=== PATIENT | male | born 1960 ===

== ENCOUNTER 2022-01-18 16:30 | Inpatient (IN) | payer OTHER, SELFPAY ==
--- NOTE | 2022-01-18 17:49 | HO.PSYADMNOT ---
Documented by User: Eva Fournire NP 01/19/22 04:11 HPI Date of Service: 01/18/22 Chief Complaint: Paranoia Sources of Information: patient interviewed, chart reviewed and crisis/core team assessment reviewed HPI Subjective Notes: Tsang Warning and Conditional Voluntary Healthcare Proxy: No Guardianship: No Medical Problems Affecting Mental Status: No Narrative: Tomas is a 61 y.o. Male who carries a dx of schizoaffective disorder, depressive type. He presented to the [facility] ED on 01/17/22 via ambulance called by [place] [employer] due to pt writing a note to police stating that he is in a high level [employer] project. Once at the ED, Tomas complained of headaches, memory loss, hearing loss, and word retrieval issues, which he attributes to high level radio frequency satellites. Per crisis eval, pt?s step-father (Samm) reported that pt's mother suffered an SC over the weekend and is currently in the hospital. He says pt is ?completely delusional and I wish we could help him but we can't.? Says he is not welcome back at the house, where he was staying. 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 It is known that I have been part of a government project that involved Rad satellites. This project was supposed to end 3 months ago. It didn?t. I hope for it?s closure everyday. My family is not involved with my life although I tried to reach out for their help. I may require a legal guardian appointed to help me get back on my feet due to insolvency, debt, no car, no housing, and no food. My mother refuses to behave as my legal guardian and I am unable to trust her with my care and making life decisions on my behalf. My condition is very bad in terms of hearing, sometimes coherency, head pain (formerly severe head pain), dizziness, (important) inability to have a person to person conversation. Thank you- Tim Swift. I evaluated the pt this evening and upon interview he reports the [employer] Sat[employer] project is still going on and that satellite frequency is ?affecting my mind.? Says this has been going on 8 years and that he was ?selected? for the project. Has multiple somatic delusions, says his physical sx are ?getting really bad? over the past month or so. Says ?I dont sleep that good,? sleeps 3 hours at night, feels tired, ?drained? and ?worn down.? Denies having nightmares or flashbacks. Says ?I have anxiety,? feels nervous. Has irritability but says he is not aggressive. Denies A/VH. Says he last ?felt normal? 8 years ago. Says a ?normal? version of him is ?optimistic.? 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 However says he has been unable to work x 8 years because ?I cant think? and he often has to lay down due to ?severe head pain.? Denies applying for disability, his bio mom is his legal guardian. Pt reports he has been supporting himself by selling his house and living off his savings. Denies having friend/ family support. Denies having a PCP. Says he has been taking risperdal since November, as this was started at [facility], however he doesnt think it does anything. Denies side effects. Pt points to liam/ nevi on his skin and says this is a ?frequency burn.??Says his mood is depressed. Denies SI/SIB/HI upon inquiry. Past Psychiatric History: -Hx of multiple psych admissions. Last IPLOC 12/11/21 at [facility] for similar presentation (started on risperdal). Was at [facility] in 2018, and a facility in the [facility] in 2013. -Has legal guardian (bio mom) Medical Evaluation Reviewed: Hospitalist [facility] Medical History (Updated 01/19/22 @ 11:18 by CARRIE Prakash) Schizoaffective disorder, depressive type Surgical History (Updated 01/19/22 @ 11:07 by CARRIE Prakash) No pertinent past surgical history Social History: -Pt?s legal guardian is his mother, Eloina Graff -Had been staying with his and her , unclear if he is welcome back. 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 He has lived in numerous states including [place], [place], and [place], lived a ?nomadic lifestyle. Diagnostics Labs Results: 01/19/22 07:03 01/19/22 07:03 Meds/Allergies Meds Home Medications Acetaminophen (Acetaminophen 325 Mg Tablet) 650 mg PO Q6H PRN PRN Reason: Headache/Pain Mild Scale (1-3) Al Hydroxide/Mg Hydroxide (Magnesium Hydrox/Alum Hydrox 30 Ml Oral.Susp) 30 ml PO Q6H PRN PRN Reason: Heartburn/Nausea Hydroxyzine HCl (Hydroxyzine Hcl 25 Mg Tablet) 25 mg PO BEDTIME PRN PRN Reason: Anxiety Lorazepam (Lorazepam 0.5 Mg Tablet) 0.5 mg PO Q6H PRN PRN Reason: anxiety/restlessness Magnesium Hydroxide (Milk Of Magnesia 30 Ml Oral.Susp) 30 ml PO DAILY PRN PRN Reason: Constipation Risperidone (Risperidone 1 Mg Tablet) 1 mg PO BID LOLA Last Admin: 01/19/22 20:46 Dose: 1 mg Documented by: Trazodone HCl (Trazodone Hcl 50 Mg Tablet) 50 mg PO BEDTIME PRN PRN Reason: Insomnia Allergies Allergies Allergy/AdvReac Type Severity Reaction Status Date / Time No Known Allergies Allergy Verified 01/18/22 17:46 Mental Status Exam Mental Status Exam Narrative: A&O. Appears older than stated age, in hospital attire, laying down in bed, thin body habitus. Poor eye contact, inattentive (hard of hearing). No Tics or Tremors. No abnormal involuntary movements. Calm, guarded, difficult to engage, paranoid. Non-pressured speech, spontaneous with regular rate and rhythm, normal volume and prosody. No prolonged speech latency or dysarthria. Mood is ?anxious,? affect is congruent. Denies SI/SIB/HI upon inquiry. Denies A/VH. Endorses somatic and paranoid delusional thought content. Thoughts are disorganized. No known cognitive or memory impairment. Insight/ Judgment poor.. Assessment & Plan Assessment & Plan (1) Schizoaffective disorder, depressive type: Status: Acute Code(s): F25.1 - Schizoaffective disorder, depressive type Plan Tomas is a 61 y.o. Male who carries a dx of schizoaffective disorder, depressive type. He presented to the [facility] ED on 01/17/22 via ambulance called by [place] [employer] due to pt writing a note to police stating that he is in a high level [employer] project. Once at the ED, Tomas complained of headaches, memory loss, hearing loss, and word retrieval issues, which he attributes to high level radio frequency satellites. No substance or alcohol use concerns. Plan: Pt was started on risperdal at [facility], will obtain discharge. Will increase risperdal to 1 mg BID for psychotic sx. Q15 min safety checks, CV Monitor response to medications. Monitor for safety in the milieu. Discharge on stabilization. Patient seen. Chart reviewed. Discussed with team. Obtain collateral contact info?as needed Patient educated on: medication risk/benefits Reason for continued inpatient stay Substantial Risk for: inability to function, rapid decompensation and med/psych decompensation
[2022-01-18 18:16] VITALS: BMI 17.4
--- NOTE | 2022-01-18 19:07 | PC.ADMIT ---
Pt is a 61 year old male admitted on CV for delusion. Pt wrote a letter to the police stating he is in a high level [employer] project. While in the inpatient psych unit, Pt reports that he is hard of hearing and requested for a book to write his life story. In the notes pt states that he has been part of a [employer] project that involves [employer]. Pt continues to state that his family is not involved with his life. He continues to say, i tried to reach out for their help. Meanwhile Pt's mother is his guarding per medical records. Speech is soft and coherent. Denies SI/HI/AH plan or intent. Pt appears disheveled, labile. Thought process is illogical and disorganized. Admission orders obtained.
[2022-01-18 19:53] LABS: Appearance Urine CLEAR; Color Urine YELLOW; Glucose Urine UA NEG (NEG); Leukocyte Esterase Urine NEG (NEG); Nitrite Urine NEG (NEG); Specific Gravity - Urine >= 1.030 (1.005-1.025); Urine Blood NEG (NEG); Urine Ketones NEG (NEG); Urine Protein NEG (NEG-TRACE)
[2022-01-18] MEDS: risperiDONE 1 MG TABLET PO (20:58)
[2022-01-19 06:00] VITALS: BP 120/74; PULSE 73; RESP 15; TEMP 36.4; O2SAT 97
[2022-01-19 07:23] LABS: MANUAL DIFF FLAG NO
[2022-01-19 07:25] LABS: Basophils Percent Auto 0.3 % (0-2); Eosinophils Absolute Auto 0.1 X10*3/uL (0.0-0.4); Eosinophils Percent Auto 2.2 % (0-4); Hematocrit 38.9 % (42.0-52.0); Hemoglobin 12.6 g/dl (14.0-18.0); Imm Gran Abs Auto 0.02 X10*3/uL (0.00-0.03); Imm Gran Pct Auto 0.3 % (0.0-0.4); Lymphocytes Absolute Auto 1.6 X10*3/uL (1.2-4.9); Lymphocytes Percent Auto 24.6 % (20-40); Mean Corpuscular HGB Conc 32.4 g/dl (31.0-36.0); Mean Corpuscular Hemoglobin 31.5 pg (27.0-33.0); Mean Corpuscular Volume 97.3 fL (80.0-98.0); Mean Platelet Volume 10.5 fL (9.4-12.4); Monocytes Absolute Auto 0.6 X10*3/uL (0.1-1.2); Monocytes Percent Auto 9.4 % (2-11); Neutrophils Percent Auto 63.2 % (45-73); Platelet Count 240 X10*3/uL (160-400); Red Cell Distribution Width 13.2 % (11.0-16.0); White Blood Count 6.4 X10*3/uL (4.8-10.8)
[2022-01-19 08:12] LABS: Alanine Aminotransferase 18 U/L (0-40); Albumin Level 4.1 g/dL (3.5-5.0); Alkaline Phosphatase 52 U/L (39-117); Anion Gap 9 (12-20); Aspartate Amino Transferase 29 U/L (5-37); Bilirubin Total 0.9 mg/dL (0.0-1.0); Blood Urea Nitrogen 21 mg/dL (9-16); Calcium 9.8 mg/dL (8.4-10.2); Carbon Dioxide 30 mmol/L (22-29); Chloride 103 mmol/L (96-108); Cholesterol 204 mg/dL; Estimated Glomerular Filt Rate > 60; Glucose Fasting 102 mg/dL (60-99); HDL Cholesterol 46 mg/dL; LDL Cholesterol Calculated 148 mg/dl; Potassium 4.7 mmol/L (3.3-5.1); Sodium 137 mmol/L (135-145); Total Protein 7.5 g/dL (6.5-8.0); Triglycerides 53 mg/dL
[2022-01-19 08:14] LABS: TSH reflex Free T4 4.35 uIU/mL (0.32-4.0)
[2022-01-19] MEDS: risperiDONE 1 MG TABLET PO ×2 (08:59→20:46)
[2022-01-19 09:13] LABS: Free T4 (Free Thyroxine) 0.94 ng/dL (0.71-1.85)
[2022-01-19 09:46] LABS: Amphetamine Screen Urine Not Detected (Not Detect); Barbiturates, Urine Not Detected (Not Detect); Benzodiazepines Screen Urine Not Detected (Not Detect); Cannabinoid Screen Urine Not Detected (Not Detect); Cocaine Screen Urine Not Detected (Not Detect); Fentanyl, urine Not Detected (Not Detect); Opiate Screen Urine Not Detected (Not Detect); Phencyclidine Screen Urine Not Detected (Not Detect)
--- NOTE | 2022-01-19 11:02 | P.CNHOSGPS_ITS ---
History of Present Illness Data of Consult Service Date: 01/19/22 Requesting physician: Eva Fournier Primary Care Provider: Unknown Physician HPI Reason for consult: Routine Medical, H&P this is a 61-year-old male with history of schizoaffective disorder who presented to [facility]. Patient had reportedly written a note to [place] [employer] stating that he is involved in a high-level [employer] project. He was admitted to the hospital for further management of paranoia. T he hospitalists were asked to see him in consultation for routine medical exam as he was admitted from an outside facility. During my evaluation he was calm and cooperative and able answer all questions appropriately. He denies any baseline medical issues or any medical complaints at this time. Review of Systems Review of Systems: Yes all other systems are reviewed and are negative Constitutional: Constitutional: Denies chills Cardiovascular: Cardiovascular: Denies chest pain and Denies dyspnea Respiratory: Respiratory: Denies dyspnea Gastrointestinal: Gastrointestinal: Denies abdominal pain and Denies vomiting [facility] Medical History (Updated 01/19/22 @ 11:18 by CARRIE Prakash) Schizoaffective disorder, depressive type Pertinent family history: Patient denies family history of heart disease, cancer or stroke Surgical History (Updated 01/19/22 @ 11:07 by CARRIE Prakash) No pertinent past surgical history Social History (Updated 01/19/22 @ 11:07 by CARRIE Prakash) Household Members: None Housing: Other Do you presently have visiting nurse or other home services: No Alcohol intake: never Patient Tobacco Use Status: Never used Tobacco Use of substances other than those prescribed or required for medical reasons: No Currently Displaying Signs/Symptoms of Drug Intoxication Withdrawal: No Have you been hit, kicked, punched, or otherwise hurt by someone within the past year? If so, by whom?: No Do you feel safe in your current relationship?: No Is there a partner from a previous relationship who is making you feel unsafe now?: No Are you made to feel afraid or neglected: No Spiritual Healthcare Practices: N/A Restorationist Healthcare Practices: N/A Cultural Healthcare Practices: N/A Advance Directives: No Advance Directives Information Provided: Yes Advance Directives on File: No Do you have thoughts of harming others: None Do you have a plan to hurt others: No Plan Recently lost weight without trying: No How much weight loss: Not applicable Eating poorly because of decreased appetite: No Nutrition screen score: 0 Nutrition Risks: No Nutritional Risk Poor oral hygiene: No Meds Allergies Allergy/AdvReac Type Severity Reaction Status Date / Time No Known Allergies Allergy Verified 01/18/22 17:46 Active Medications: Current Medications Acetaminophen (Acetaminophen 325 Mg Tablet) 650 mg PO Q6H PRN PRN Reason: Headache/Pain Mild Scale (1-3) Al Hydroxide/Mg Hydroxide (Magnesium Hydrox/Alum Hydrox 30 Ml Oral.Susp) 30 ml PO Q6H PRN PRN Reason: Heartburn/Nausea Hydroxyzine HCl (Hydroxyzine Hcl 25 Mg Tablet) 25 mg PO BEDTIME PRN PRN Reason: Anxiety Lorazepam (Lorazepam 0.5 Mg Tablet) 0.5 mg PO Q6H PRN PRN Reason: anxiety/restlessness Magnesium Hydroxide (Milk Of Magnesia 30 Ml Oral.Susp) 30 ml PO DAILY PRN PRN Reason: Constipation Risperidone (Risperidone 1 Mg Tablet) 1 mg PO BID LOLA Last Admin: 01/19/22 08:59 Dose: 1 mg Documented by: Trazodone HCl (Trazodone Hcl 50 Mg Tablet) 50 mg PO BEDTIME PRN PRN Reason: Insomnia Home Medications Medication Instructions Recorded Confirmed Last Taken Type No Known Home Meds 01/19/22 01/19/22 Unknown History Results Labs CBC and Chem 7: 01/19/22 07:03 01/19/22 07:03 Labs: Laboratory Results - last 24 hr 01/18/22 01/19/22 01/19/22 19:30 07:03 07:03 MCV 97.3 MCH 31.5 MCHC 32.4 RDW 13.2 Plt Count 240 MPV 10.5 Immature Gran % (Auto) 0.3 Neut % (Auto) 63.2 Lymph % (Auto) 24.6 [place] % (Auto) 9.4 Eos % (Auto) 2.2 Baso % (Auto) 0.3 Lymph # (Auto) 1.6 [place] # (Auto) 0.6 Eos # (Auto) 0.1 Baso # (Auto) 0.0 Abs Immat Gran (auto) 0.02 Absolute Neuts (auto) 4.0 Absolute Nucleated RBC 0.000 Nucleated RBC % (auto) 0.0 Anion Gap 9 L Estim Creat Clear Calc 61.0 Estimated GFR > 60 Fasting Glucose 102 H Calcium 9.8 Total Bilirubin 0.9 AST 29 ALT 18 Alkaline Phosphatase 52 Total Protein 7.5 Albumin 4.1 Triglycerides 53 Cholesterol 204 LDL Cholesterol, Calc 148 HDL Cholesterol 46 TSH 4.35 H Free T4 0.94 Urine Color YELLOW Urine Appearance CLEAR Urine pH 6.0 Ur Specific [place] >= 1.030 H Urine Protein NEG Urine Glucose (UA) NEG Urine Ketones NEG Urine Blood NEG Urine Nitrite NEG Ur Leukocyte Esterase NEG Urine Opiates Screen Urine Fentanyl Screen Ur Barbiturates Screen Ur Phencyclidine Scrn Ur Amphetamines Screen U Benzodiazepines Scrn Urine Cocaine Screen U Marijuana (THC) Screen 01/19/22 09:16 MCV MCH MCHC RDW Plt Count MPV Immature Gran % (Auto) Neut % (Auto) Lymph % (Auto) [place] % (Auto) Eos % (Auto) Baso % (Auto) Lymph # (Auto) [place] # (Auto) Eos # (Auto) Baso # (Auto) Abs Immat Gran (auto) Absolute Neuts (auto) Absolute Nucleated RBC Nucleated RBC % (auto) Anion Gap Estim Creat Clear Calc Estimated GFR Fasting Glucose Calcium Total Bilirubin AST ALT Alkaline Phosphatase Total Protein Albumin Triglycerides Cholesterol LDL Cholesterol, Calc HDL Cholesterol TSH Free T4 Urine Color Urine Appearance Urine pH Ur Specific [place] Urine Protein Urine Glucose (UA) Urine Ketones Urine Blood Urine Nitrite Ur Leukocyte Esterase Urine Opiates Screen Not Detected Urine Fentanyl Screen Not Detected Ur Barbiturates Screen Not Detected Ur Phencyclidine Scrn Not Detected Ur Amphetamines Screen Not Detected U Benzodiazepines Scrn Not Detected Urine Cocaine Screen Not Detected U Marijuana (THC) Screen Not Detected Assessment and Plan (1) Schizoaffective disorder, depressive type: Status: Acute (2) Normocytic anemia: Status: Acute Plan This is a 61 year old male with history of schizoaffective disorder admitted to for management of paranoia. He has no specific medical complaints denies any chronic medical conditions. Vital signs stalbe. There do no appear to be any acute medical conditions at this time. Thank you for allowing us to participate in the care of this patient. Please feel free to call us if anything acute arises. Normocytic anemia, mild no baseline CBC for comparison b12, folate levels pending outpatient follow up Attending: dr. ansari Physical Exam Vital Signs: Last Vital Signs Temp 97.5 F 01/19/22 06:00 Pulse 73 04/23/22 06:00 Resp 15 01/19/22 06:00 BP 120/74 01/19/22 06:00 Pulse Ox 97 01/19/22 06:00 BMI result Body Mass Index 17.4 Const General: cooperative, comfortable, no acute distress, alert and awake Nutritional Appearance: thin Eyes Pupils: Equal, round and reactive pupils present EOM: EOMs intact bilaterally Resp Effort & Inspection: normal respiratory effort and able to speak in complete sentences Auscultation: clear to auscultation bilaterally Cardio Rate: regular rate Heart sounds: S1 normal heart sound present and S2 normal heart sound present GI Palpation (GI): Soft to palpation Neuro General: CN's II-XI intact bilaterally Cranial nerves: Yes Equal, round and reactive pupils present Extrem Other: moving all 4 extremities spontaneously; no pedal edema
[2022-01-19 18:00] VITALS: BP 124/72; PULSE 74; TEMP 36.3; O2SAT 97
[2022-01-20 06:00] VITALS: BP 107/69; PULSE 72; RESP 16; TEMP 37.1; O2SAT 98
[2022-01-20] MEDS: risperiDONE 1 MG TABLET PO ×2 (08:33→19:47)
[2022-01-20 16:20] VITALS: BP 131/72; PULSE 65; TEMP 36.7; O2SAT 95
--- NOTE | 2022-01-20 22:43 | HO.PSYCHPN ---
Subjective Subjective Date of Service: 01/19/22 Reason For Visit: Paranoia Subjective Notes: Conditional Voluntary Interim History: Patient calm cooperative able to give history that he had recently been a [facility] was treated with Risperdal. States he works for the [employer] cannot really explain what happened prior to admission. States he had been picked up by the police wandering the streets. Has not had any steady treatment. He is estranged from his family taking medication on the unit Mental Status Exam Mental Status Exam Narrative: Patient Appearance: Well Grooomed Patient Orientation: Person, Place and Situation Level of Consciousness: Awake Patient Behavior: Appropriate Mood Description: Flat and Apprehensive Affect Description: Withdrawn, Constricted and Apprehensive Memory Description: Intact Delusions: Being Controlled, Paranoid Ideation and Grandiose Thought Content: positive for Preoccupation, negative for Suicidal Ideation or negative for Homicidal Ideation Diagnostics Vital Signs (24Hr): Vital Signs - 24 hr 01/20/22 06:00 01/20/22 16:20 Temperature 98.7 F 98.1 F Pulse Rate 72 65 Respiratory Rate 16 Blood Pressure 107/69 131/72 Pulse Oximetry 98 95 BMI result Body Mass Index 17.4 Labs Results: 01/19/22 07:03 01/19/22 07:03 Labs: Laboratory Results - last 48 hr 01/19/22 01/19/22 01/19/22 07:03 07:03 09:16 WBC 6.4 RBC 4.00 L Hgb 12.6 L Hct 38.9 L MCV 97.3 MCH 31.5 MCHC 32.4 RDW 13.2 Plt Count 240 MPV 10.5 Immature Gran % (Auto) 0.3 Neut % (Auto) 63.2 Lymph % (Auto) 24.6 [place] % (Auto) 9.4 Eos % (Auto) 2.2 Baso % (Auto) 0.3 Lymph # (Auto) 1.6 [place] # (Auto) 0.6 Eos # (Auto) 0.1 Baso # (Auto) 0.0 Abs Immat Gran (auto) 0.02 Absolute Neuts (auto) 4.0 Absolute Nucleated RBC 0.000 Nucleated RBC % (auto) 0.0 Sodium 137 Potassium 4.7 Chloride 103 Carbon Dioxide 30 H Anion Gap 9 L BUN 21 H Creatinine 1.02 Estim Creat Clear Calc 61.0 Estimated GFR > 60 Fasting Glucose 102 H Calcium 9.8 Total Bilirubin 0.9 AST 29 ALT 18 Alkaline Phosphatase 52 Total Protein 7.5 Albumin 4.1 Triglycerides 53 Cholesterol 204 LDL Cholesterol, Calc 148 HDL Cholesterol 46 TSH 4.35 H Free T4 0.94 Urine Opiates Screen Not Detected Urine Fentanyl Screen Not Detected Ur Barbiturates Screen Not Detected Ur Phencyclidine Scrn Not Detected Ur Amphetamines Screen Not Detected U Benzodiazepines Scrn Not Detected Urine Cocaine Screen Not Detected U Marijuana (THC) Screen Not Detected Medications Medications Current Medications Acetaminophen (Acetaminophen 325 Mg Tablet) 650 mg PO Q6H PRN PRN Reason: Headache/Pain Mild Scale (1-3) Al Hydroxide/Mg Hydroxide (Magnesium Hydrox/Alum Hydrox 30 Ml Oral.Susp) 30 ml PO Q6H PRN PRN Reason: Heartburn/Nausea Hydroxyzine HCl (Hydroxyzine Hcl 25 Mg Tablet) 25 mg PO BEDTIME PRN PRN Reason: Anxiety Lorazepam (Lorazepam 0.5 Mg Tablet) 0.5 mg PO Q6H PRN PRN Reason: anxiety/restlessness Magnesium Hydroxide (Milk Of Magnesia 30 Ml Oral.Susp) 30 ml PO DAILY PRN PRN Reason: Constipation Risperidone (Risperidone 1 Mg Tablet) 1 mg PO BID LOLA Last Admin: 01/20/22 19:47 Dose: 1 mg Documented by: Trazodone HCl (Trazodone Hcl 50 Mg Tablet) 50 mg PO BEDTIME PRN PRN Reason: Insomnia Allergies Allergies Allergy/AdvReac Type Severity Reaction Status Date / Time No Known Allergies Allergy Verified 01/18/22 17:46 Assessment & Plan Assessment & Plan (1) Schizoaffective disorder, depressive type: Status: Acute Code(s): F25.1 - Schizoaffective disorder, depressive type Plan Tomas is a 61 y.o. Male who carries a dx of schizoaffective disorder, depressive type. He presented to the [facility] ED on 01/17/22 via ambulance called by [place] [employer] due to pt writing a note to police stating that he is in a high level [employer] project. Once at the ED, Tomas complained of headaches, memory loss, hearing loss, and word retrieval issues, which he attributes to high level radio frequency satellites. No substance or alcohol use concerns. Plan: Pt was started on risperdal at [facility], will obtain discharge. Will increase risperdal to 1 mg BID for psychotic sx. Q15 min safety checks, CV Monitor response to medications. Monitor for safety in the milieu. Discharge on stabilization. Patient seen. Chart reviewed. Discussed with team. Obtain collateral contact info?as needed 01/19/2022 Patient accepting Risperdal. Would do well with long-acting injectable. Unclear why patient has not had significant treatment over the past number of years. The collateral information from family he is asking we contact his stepfather. His 2 brothers states his no contact with. Patient does not have any children unclear how the patient has been living states he has over million dollars unclear if this is grandiose and delusional I spent minutes with the patient and/or on the patient floor today, greater than?50% of which was spent counseling/coordinating care. Reason for contiued inpatient stay Substantial Risk for: inability to function and rapid decompensation
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
[2022-01-21 06:00] VITALS: BP 111/75; PULSE 60; RESP 16; TEMP 36.9; O2SAT 99
[2022-01-21 07:52] LABS: Folate 14.1 ng/mL (> or = 4.0); Vitamin B12 502 pg/mL (200-900)
[2022-01-21] MEDS: risperiDONE 1 MG TABLET PO (08:36)
[2022-01-21 16:30] VITALS: BP 128/65; PULSE 66; TEMP 37.1; O2SAT 96
--- NOTE | 2022-01-21 17:22 | HO.PSYCHPN ---
Subjective Subjective Date of Service: 01/21/22 Reason For Visit: Paranoia Interim History: Patient seen and discussed with team. Patient evaluated today and upon interview he reports he slept well last night, the day before he thinks he only slept a half hour. Says omero is not doing anything. No side effects. Says his head pain isnt too bad, but he is still getting dizzy and having a hard time forming thoughts. Says he is eating well. His mood is a little anxious about the family situation. Says he is a little bit down but that his depression is only a 1/10 (10 is the worst). In the milieu, patient is safe but isolative in behavior. Denies SI/SIB/HI upon inquiry. Denies irritability or assaultive ideation. Says he feels safe. Medication Compliance: Yes Side effects from medications: No Attending Groups: No Review of Systems Acute medical concerns: No Medical Review of Systems: unchanged Mental Status Exam Mental Status Exam Narrative: A&O. Appears older than stated age, laying down in bed, thin body habitus. Poor eye contact, inattentive (says he is hard of hearing). No Tics or Tremors. No abnormal involuntary movements. Calm, guarded, difficult to engage, paranoid. Non-pressured speech, spontaneous with regular rate and rhythm, normal volume and prosody. No prolonged speech latency or dysarthria. Mood is ?anxious,? affect is congruent. Denies SI/SIB/HI upon inquiry. Denies A/VH. Endorses somatic and paranoid delusional thought content. Thoughts are perseverative on delusions. No known cognitive or memory impairment. Insight/ Judgment poor. Diagnostics Vital Signs (24Hr): Vital Signs - 24 hr 01/21/22 06:00 01/21/22 16:30 Temperature 98.5 F 98.7 F Pulse Rate 60 66 Respiratory Rate 16 Blood Pressure 111/75 128/65 Pulse Oximetry 99 96 BMI result Body Mass Index 17.4 Labs Results: 01/19/22 07:03 01/19/22 07:03 Labs: Laboratory Results - last 48 hr 01/19/22 07:03 Vitamin B12 502 Folate 14.1 Medications Medications Current Medications Acetaminophen (Acetaminophen 325 Mg Tablet) 650 mg PO Q6H PRN PRN Reason: Headache/Pain Mild Scale (1-3) Al Hydroxide/Mg Hydroxide (Magnesium Hydrox/Alum Hydrox 30 Ml Oral.Susp) 30 ml PO Q6H PRN PRN Reason: Heartburn/Nausea Hydroxyzine HCl (Hydroxyzine Hcl 25 Mg Tablet) 25 mg PO BEDTIME PRN PRN Reason: Anxiety Lorazepam (Lorazepam 0.5 Mg Tablet) 0.5 mg PO Q6H PRN PRN Reason: anxiety/restlessness Magnesium Hydroxide (Milk Of Magnesia 30 Ml Oral.Susp) 30 ml PO DAILY PRN PRN Reason: Constipation Risperidone (Risperidone 1 Mg Tablet) 1 mg PO BID LOLA Last Admin: 01/21/22 08:36 Dose: 1 mg Documented by: Trazodone HCl (Trazodone Hcl 50 Mg Tablet) 50 mg PO BEDTIME PRN PRN Reason: Insomnia Allergies Allergies Allergy/AdvReac Type Severity Reaction Status Date / Time No Known Allergies Allergy Verified 01/18/22 17:46 Assessment & Plan Assessment & Plan (1) Schizoaffective disorder, depressive type: Status: Acute Code(s): F25.1 - Schizoaffective disorder, depressive type Plan Tomas is a 61 y.o. Male who carries a dx of schizoaffective disorder, depressive type. He presented to the [facility] ED on 01/17/22 via ambulance called by [place] [employer] due to pt writing a note to police stating that he is in a high level [employer] project. Once at the ED, Tomas complained of headaches, memory loss, hearing loss, and word retrieval issues, which he attributes to high level radio frequency satellites. No substance or alcohol use concerns. Plan: Pt was started on risperdal at [facility], will obtain discharge. Will increase risperdal to 1 mg BID for psychotic sx. Q15 min safety checks, CV Monitor response to medications. Monitor for safety in the milieu. Discharge on stabilization. Patient seen. Chart reviewed. Discussed with team. Obtain collateral contact info?as needed 01/19/2022 Patient accepting Risperdal. Would do well with long-acting injectable. Unclear why patient has not had significant treatment over the past number of years. The collateral information from family he is asking we contact his stepfather. His 2 brothers states his no contact with. Patient does not have any children unclear how the patient has been living states he has over million dollars unclear if this is grandiose and delusional 01/20/2022 We would strongly recommend long-acting injectable. Contact family for additional information support unclear what other resources may be available 01/21/22: Increase risperdal to 2 mg BID, as pt has not had response to medication (risperdal started at [facility]) and appears psychotic, unable to care for self. Obtain [facility] discharge paperwork. I spent minutes with the patient and/or on the patient floor today, greater than?50% of which was spent counseling/coordinating care. Patient educated on: medication risk/benefits Reason for contiued inpatient stay Substantial Risk for: inability to function, rapid decompensation and med/psych decompensation
[2022-01-21] MEDS: risperiDONE 2 MG TABLET PO (20:53)
[2022-01-22 06:00] VITALS: BP 121/68; PULSE 68; RESP 18; TEMP 36.8; O2SAT 98
[2022-01-22] MEDS: risperiDONE 2 MG TABLET PO ×2 (08:08→20:10)
--- NOTE | 2022-01-22 10:40 | HO.PSYCHPN ---
Subjective Subjective Date of Service: 01/22/22 Reason For Visit: Paranoia Interim History: pt remains w/ delusional thoughts. 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 Supervisor P[employer] D[employer] highligthed some things in admission note and pt agreed it was accurate. Patient c/o severe headache which he believes are caused by electronics in his head; does not want medication for it saying motrin won't overcome the electronics. Pt says had MRI at [facility] few weeks ago and they found nothing. Mental Status Exam Mental Status Exam Narrative: A&O. Appears older than stated age, laying down in bed, thin body habitus. Good eye contact; attentive (says he is hard of hearing). No Tics or Tremors. No abnormal involuntary movements. Calm but a little guarded, difficult to engage, paranoid. Non-pressured speech, spontaneous with regular rate and rhythm, normal volume and prosody. No prolonged speech latency or dysarthria. Mood is ?anxious,? affect is congruent. Denies SI/SIB/HI upon inquiry. Denies A/VH. Endorses somatic and paranoid delusional thought content. Thoughts are perseverative on delusions. No known cognitive or memory impairment. Insight/ Judgment poor. Diagnostics Vital Signs (24Hr): Vital Signs - 24 hr 01/21/22 16:30 01/22/22 06:00 Temperature 98.7 F 98.3 F Pulse Rate 66 68 Respiratory Rate 18 Blood Pressure 128/65 121/68 Pulse Oximetry 96 98 BMI result Body Mass Index 17.4 Labs Results: 01/19/22 07:03 01/19/22 07:03 Labs: Laboratory Results - last 48 hr 01/19/22 07:03 Vitamin B12 502 Folate 14.1 Medications Medications Current Medications Acetaminophen (Acetaminophen 325 Mg Tablet) 650 mg PO Q6H PRN PRN Reason: Headache/Pain Mild Scale (1-3) Al Hydroxide/Mg Hydroxide (Magnesium Hydrox/Alum Hydrox 30 Ml Oral.Susp) 30 ml PO Q6H PRN PRN Reason: Heartburn/Nausea Hydroxyzine HCl (Hydroxyzine Hcl 25 Mg Tablet) 25 mg PO BEDTIME PRN PRN Reason: Anxiety Lorazepam (Lorazepam 0.5 Mg Tablet) 0.5 mg PO Q6H PRN PRN Reason: anxiety/restlessness Magnesium Hydroxide (Milk Of Magnesia 30 Ml Oral.Susp) 30 ml PO DAILY PRN PRN Reason: Constipation Risperidone (Risperidone 2 Mg Tablet) 2 mg PO BID LOLA Last Admin: 01/22/22 08:08 Dose: 2 mg Documented by: Trazodone HCl (Trazodone Hcl 50 Mg Tablet) 50 mg PO BEDTIME PRN PRN Reason: Insomnia Allergies Allergies Allergy/AdvReac Type Severity Reaction Status Date / Time No Known Allergies Allergy Verified 01/18/22 17:46 Assessment & Plan Assessment & Plan (1) Schizoaffective disorder, depressive type: Status: Acute Code(s): F25.1 - Schizoaffective disorder, depressive type Plan Tomas is a 61 y.o. Male who carries a dx of schizoaffective disorder, depressive type. He presented to the [facility] ED on 01/17/22 via ambulance called by [place] [employer] due to pt writing a note to police stating that he is in a high level [employer] project. Once at the ED, Tomas complained of headaches, memory loss, hearing loss, and word retrieval issues, which he attributes to high level radio frequency satellites. No substance or alcohol use concerns. 01/19/2022 Patient accepting Risperdal. Would do well with long-acting injectable. Unclear why patient has not had significant treatment over the past number of years. The collateral information from family he is asking we contact his stepfather. His 2 brothers states his no contact with. Patient does not have any children unclear how the patient has been living states he has over million dollars unclear if this is grandiose and delusional 01/20/2022 We would strongly recommend long-acting injectable. Contact family for additional information support unclear what other resources may be available 01/21/22: Increase risperdal to 2 mg BID, as pt has not had response to medication (risperdal started at [facility]) and appears psychotic, unable to care for self. Obtain [facility] discharge paperwork. Formulation: delusional disorder with hx of depression; no insight Plan: Q15 min safety checks, CV -increased risperdal to 2 mg BID for psychotic sx (on 01/21); risperdal recently started [facility]; will obtain discharge. -obtain MRI results from [facility] Monitor response to medications. Monitor for safety in the milieu. Discharge on stabilization. Patient seen. Chart reviewed. Discussed with team. Obtain collateral contact info?as needed I spent minutes with the patient and/or on the patient floor today, greater than?50% of which was spent counseling/coordinating care. Patient educated on: diagnosis Informed Consent: does not understand Reason for contiued inpatient stay Substantial Risk for: inability to function
[2022-01-22 18:00] VITALS: BP 108/70; PULSE 76; TEMP 36.8; O2SAT 96
[2022-01-23 06:09] VITALS: BP 117/67; PULSE 75; RESP 17; TEMP 36.3; O2SAT 98
[2022-01-23] MEDS: risperiDONE 2 MG TABLET PO ×2 (08:47→20:33)
--- NOTE | 2022-01-23 10:42 | P.PNPSI_ITS ---
Subjective Subjective Date of Service: 01/23/22 Reason For Visit: Paranoia Interim History: Patient reports that his headache Is a little better today and that he slept well last night. However, he says that his minds still feels foggy.. Patient says shared that for the past 8 years he has been part of a [employer] project that is highly classified and that this travel writer does not have clearance to know the details. Patient shows some dry patches of skin on his face and says that these are where the frequency gets attached to his skin. Patient shares that he has to Lie horizontally most of the day since at this position the lateral components in his brain are at their lowest amplitude. Patient shared that he has numerous discussions throughout the day with the [employer] system and with the [employer] computer. He says that he can hear them talking to him via the medical transcription supervisor implanted and that he gets advice from them, again not able to tell travel writer the details. Patient said that he is hopeful that this project will be ending soon and that he will give this travel writer a written note when that occurs. Patient denies any SI or HI. Patient denies any medication side effect Him Clerk did some reality testing and patient is adamant that this is completely real that his mind is not playing any tricks on him Mental Status Exam Mental Status Exam Narrative: Pt is alert and oriented; behavior is cooperative, friendly and calm; patient is not in distress; dressed in hospital attire with unkempt hair and marginal hygiene; mood is described as ok and affect a little blunted; eye contact appropriate; Speech is normal rate, volume and prosody and not pressured; no psychomotor agitation/retardation present; thought process is goal directed; Thought content is on delusional interactions with DOD; special, classified project; otherwise pertinent to relevant topics; denies any SI/HI. REports AH. Patients insight and judgment are impaired Diagnostics Vital Signs (24Hr): Vital Signs - 24 hr 01/22/22 18:00 01/23/22 06:09 Temperature 98.3 F 97.3 F Pulse Rate 76 75 Respiratory Rate 17 Blood Pressure 108/70 117/67 Pulse Oximetry 96 98 BMI result Body Mass Index 17.4 Labs Results: 01/19/22 07:03 01/19/22 07:03 Medications Medications Current Medications Acetaminophen (Acetaminophen 325 Mg Tablet) 650 mg PO Q6H PRN PRN Reason: Headache/Pain Mild Scale (1-3) Al Hydroxide/Mg Hydroxide (Magnesium Hydrox/Alum Hydrox 30 Ml Oral.Susp) 30 ml PO Q6H PRN PRN Reason: Heartburn/Nausea Hydroxyzine HCl (Hydroxyzine Hcl 25 Mg Tablet) 25 mg PO BEDTIME PRN PRN Reason: Anxiety Lorazepam (Lorazepam 0.5 Mg Tablet) 0.5 mg PO Q6H PRN PRN Reason: anxiety/restlessness Magnesium Hydroxide (Milk Of Magnesia 30 Ml Oral.Susp) 30 ml PO DAILY PRN PRN Reason: Constipation Risperidone (Risperidone 2 Mg Tablet) 2 mg PO BID LOLA Last Admin: 01/23/22 08:47 Dose: 2 mg Documented by: Trazodone HCl (Trazodone Hcl 50 Mg Tablet) 50 mg PO BEDTIME PRN PRN Reason: Insomnia Allergies Allergies Allergy/AdvReac Type Severity Reaction Status Date / Time No Known Allergies Allergy Verified 01/18/22 17:46 Assessment & Plan Assessment & Plan (1) Schizoaffective disorder, depressive type: Status: Acute Code(s): F25.1 - Schizoaffective disorder, depressive type Plan Tomas is a 61 y.o. Male who carries a dx of schizoaffective disorder, depressive type. He presented to the [facility] [place] on 01/17/22 via ambulance called by [place] [employer] due to pt writing a note to police stating that he is in a high level [employer] project. Once at the ED, Tomas complained of headaches, memory loss, hearing loss, and word retrieval issues, which he attributes to high level radio frequency satellites. No substance or alcohol use concerns. HOSPITAL COURSE: 01/19/2022 Patient accepting Risperdal. Would do well with long-acting injectable. Unclear why patient has not had significant treatment over the past number of years. The collateral information from family he is asking we contact his stepfather. His 2 brothers states his no contact with. Patient does not have any children unclear how the patient has been living states he has over million dollars unclear if this is grandiose and delusional 01/20/2022 We would strongly recommend long-acting injectable. Contact family for additional information support unclear what other resources may be available 01/21/22: Increase risperdal to 2 mg BID, as pt has not had response to medication (risperdal started at [facility]) and appears psychotic, unable to care for self. Obtain [facility] discharge paperwork. 01/23 Remains delusional and without any insight. However patient said that headache pain is less today which will hopefully Indicates that Risperdal is having some positive affect. Will leave the current dose for now to see If further improvements can be made Formulation: delusional disorder with hx of depression; no insight Plan: Q15 min safety checks, CV -increased risperdal to 2 mg BID for psychotic sx (on 01/21); risperdal recently started [facility]; will obtain discharge. -obtain MRI results from [facility]: Impression not available in documentation faxed over, however in progress note attending referenced MRI of the brain from 01/11/2022 which she reported as ...unremarkable. Will try to get official impression Monitor response to medications. Monitor for safety in the milieu. Discharge on stabilization. Patient seen. Chart reviewed. Discussed with team. Obtain collateral contact info?as needed I spent minutes with the patient and/or on the patient floor today, greater than?50% of which was spent counseling/coordinating care. Patient educated on: diagnosis Informed Consent: does not understand Reason for contiued inpatient stay Substantial Risk for: inability to function
[2022-01-23 18:30] VITALS: BP 115/66; PULSE 80; TEMP 37; O2SAT 96
[2022-01-23] MEDS: traZODone HCL 50 MG TABLET PO (20:33)
--- NOTE | 2022-01-23 22:56 | PC.NURSE ---
Patient continues to isolate to his room. He will make only vague reference to the project but stated the doctor knows all about it.
[2022-01-24 06:00] VITALS: BP 107/72; PULSE 62; RESP 16; TEMP 36.1; O2SAT 97
[2022-01-24] MEDS: risperiDONE 2 MG TABLET PO ×2 (09:32→21:41)
[2022-01-24 16:55] VITALS: BP 130/66; PULSE 74; TEMP 36.8
--- NOTE | 2022-01-24 17:29 | P.PNPSI_ITS ---
Subjective Subjective Date of Service: 01/24/22 Reason For Visit: Paranoia Interim History: Patient again reports that he slept well and that headache is much less problematic today. Patient reiterates that he needs to lie horizontally most of the day as this lowers the amplitude of the electronics in his brain. [employer] asked about his time in [facility]. 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 He says that other than a short trip when he 1st got there, he spent the entire 5 years almost exclusively in his hotel room, never leaving and just participating on this D.O.D project. He says the [place] government deported him for over staying his visa. Patient denies any medication side effects and agrees to further titration. He said he has been on medications in the past but does not remember any of them. Mental Status Exam Mental Status Exam Narrative: Pt is alert and oriented; behavior is cooperative, friendly and calm; patient is not in distress; dressed in hospital attire with unkempt hair and marginal hygiene;? mood is described as good and affect a little blunted; eye contact appropriate; Speech is normal rate, volume and prosody and not pressured; no psychomotor agitation/retardation present; thought process is goal directed; Thought content is on delusional interactions with DOD; special, classified project; otherwise pertinent to relevant topics; denies any SI/HI. Auditory hallucinations present.? Patients insight and judgment are impaired Diagnostics Vital Signs (24Hr): Vital Signs - 24 hr 01/23/22 18:30 01/24/22 06:00 01/24/22 16:55 Temperature 98.6 F 96.9 F 98.2 F Pulse Rate 80 62 74 Respiratory Rate 16 Blood Pressure 115/66 107/72 130/66 Pulse Oximetry 96 97 BMI result Body Mass Index 17.4 Labs Results: 01/19/22 07:03 01/19/22 07:03 Medications Medications Current Medications Acetaminophen (Acetaminophen 325 Mg Tablet) 650 mg PO Q6H PRN PRN Reason: Headache/Pain Mild Scale (1-3) Al Hydroxide/Mg Hydroxide (Magnesium Hydrox/Alum Hydrox 30 Ml Oral.Susp) 30 ml PO Q6H PRN PRN Reason: Heartburn/Nausea Hydroxyzine HCl (Hydroxyzine Hcl 25 Mg Tablet) 25 mg PO BEDTIME PRN PRN Reason: Anxiety Lorazepam (Lorazepam 0.5 Mg Tablet) 0.5 mg PO Q6H PRN PRN Reason: anxiety/restlessness Magnesium Hydroxide (Milk Of Magnesia 30 Ml Oral.Susp) 30 ml PO DAILY PRN PRN Reason: Constipation Risperidone (Risperidone 2 Mg Tablet) 2 mg PO BID [facility] Last Admin: 01/24/22 09:32 Dose: 2 mg Documented by: Trazodone HCl (Trazodone Hcl 50 Mg Tablet) 50 mg PO BEDTIME [facility] Last Admin: 01/23/22 20:33 Dose: 50 mg Documented by: Allergies Allergies Allergy/AdvReac Type Severity Reaction Status Date / Time No Known Allergies Allergy Verified 01/18/22 17:46 Assessment & Plan Assessment & Plan (1) Schizoaffective disorder, depressive type: Status: Acute Code(s): F25.1 - Schizoaffective disorder, depressive type Plan Tomas is a 61 y.o. Male who carries a dx of schizoaffective disorder, depressive type. [place] [facility] [place] via ambulance called by [place] Police due to pt writing a note to police stating that he is in a high level [employer] project. Once at the ED, Tomas complained of headaches, memory loss, hearing loss, and word retrieval issues, which he attributes to high level radio frequency satellites. No substance or alcohol use concerns. HOSPITAL COURSE: 01/19/2022 Patient accepting Risperdal. Would do well with long-acting injectable. Unclear why patient has not had significant treatment over the past number of years. The collateral information from family he is asking we contact his stepfather. His 2 brothers states his no contact with. Patient does not have any children unclear how the patient has been living states he has over million dollars unclear if this is grandiose and delusional 01/20/2022 We would strongly recommend long-acting injectable. Contact family for additional information support unclear what other resources may be available 01/21/22: Increase risperdal to 2 mg BID, as pt has not had response to medication ([place] [facility] and appears psychotic, unable to care for self. Obt[place] [facility] [place] 01/23 Remains delusional and without any insight. However patient said that headache pain is less today which will hopefully Indicates that Risperdal is having some positive affect. Will leave the current dose for now to see If further improvements can be made Formulation: delusional disorder with hx of depression; no insight Plan: Q15 min safety checks, CV -risperdal to 2 mg BID for psychotic sx (on 01/21); initially started on APTU -obtain MRI results from [facility]: Impression not available in documentation faxed over, however in progress note attending referenced MRI of the brain from 01/11/2022 which she reported as ...unremarkable. Will try to get official impression Monitor response to medications. Monitor for safety in the milieu. Discharge on stabilization. Patient seen. Chart reviewed. Discussed with team. Obtain collateral contact info?as needed I spent minutes with the patient and/or on the patient floor today, greater than?50% of which was spent counseling/coordinating care. Patient educated on: medication risk/benefits Informed Consent: understands Reason for contiued inpatient stay Substantial Risk for: inability to function
[2022-01-24] MEDS: traZODone HCL 50 MG TABLET PO (21:40)
[2022-01-25 06:00] VITALS: BP 113/67; PULSE 81; RESP 16; TEMP 36; O2SAT 98
[2022-01-25] MEDS: risperiDONE 2 MG TABLET PO ×2 (09:08→19:45)
--- NOTE | 2022-01-25 17:17 | HO.PSYCHPN ---
Subjective Subjective Date of Service: 01/25/22 Reason For Visit: Paranoia Interim History: Patient pleasant. He says headaches remain a little less severe. Patient feels that his thoughts are little clear as well. Patient apologized for yelling at staff earlier, saying it was upsetting to be asked questions about his secret mission especially feeling he has to repeat himself. Associate Marketing Manager discussed medications and patient agrees to further titration. Patient reports he has no place to live and is homeless Mental Status Exam Mental Status Exam Narrative: Pt is alert and oriented; behavior is cooperative, friendly and calm; patient is not in distress; dressed in hospital attire with unkempt hair and marginal hygiene;? mood is described as good and affect a little blunted; eye contact appropriate; Speech is normal rate, volume and prosody and not pressured; no psychomotor agitation/retardation present; thought process is goal directed; Thought content is on delusional interactions with DOD; special, classified project; otherwise pertinent to relevant topics; denies any SI/HI.? Auditory hallucinations present.? Patients insight and judgment are impaired Diagnostics Vital Signs (24Hr): Vital Signs - 24 hr 01/25/22 06:00 Temperature 96.8 F Pulse Rate 81 Respiratory Rate 16 Blood Pressure 113/67 Pulse Oximetry 98 BMI result Body Mass Index 17.4 Labs Results: 01/19/22 07:03 01/19/22 07:03 Medications Medications Current Medications Acetaminophen (Acetaminophen 325 Mg Tablet) 650 mg PO Q6H PRN PRN Reason: Headache/Pain Mild Scale (1-3) Al Hydroxide/Mg Hydroxide (Magnesium Hydrox/Alum Hydrox 30 Ml Oral.Susp) 30 ml PO Q6H PRN PRN Reason: Heartburn/Nausea Hydroxyzine HCl (Hydroxyzine Hcl 25 Mg Tablet) 25 mg PO BEDTIME PRN PRN Reason: Anxiety Lorazepam (Lorazepam 0.5 Mg Tablet) 0.5 mg PO Q6H PRN PRN Reason: anxiety/restlessness Magnesium Hydroxide (Milk Of Magnesia 30 Ml Oral.Susp) 30 ml PO DAILY PRN PRN Reason: Constipation Risperidone (Risperidone 2 Mg Tablet) 2 mg PO BID [facility] Last Admin: 01/25/22 09:08 Dose: 2 mg Documented by: Trazodone HCl (Trazodone Hcl 50 Mg Tablet) 50 mg PO BEDTIME [facility] Last Admin: 01/24/22 21:40 Dose: 50 mg Documented by: Allergies Allergies Allergy/AdvReac Type Severity Reaction Status Date / Time No Known Allergies Allergy Verified 01/18/22 17:46 Assessment & Plan Assessment & Plan (1) Schizoaffective disorder, depressive type: Status: Acute Code(s): F25.1 - Schizoaffective disorder, depressive type Plan Tomas is a 61 y.o. Male who carries a dx of schizoaffective disorder, depressive type. He [place] [facility] [place]17[place]22 via ambulance called by [place] [employer] due to pt writing a note to police stating that he is in a high level [employer] project. Once at the ED, Tomas complained of headaches, memory loss, hearing loss, and word retrieval issues, which he attributes to high level radio frequency satellites. No substance or alcohol use concerns. HOSPITAL COURSE: 01/19/2022 Patient accepting Risperdal. Would do well with long-acting injectable. Unclear why patient has not had significant treatment over the past number of years. The collateral information from family he is asking we contact his stepfather. His 2 brothers states his no contact with. Patient does not have any children unclear how the patient has been living states he has over million dollars unclear if this is grandiose and delusional 01/20/2022 We would strongly recommend long-acting injectable. Contact family for additional information support unclear what other resources may be available 01/21/22: Increase risperdal to 2 mg BID, as pt has not had response to medication (risperdal started at [facility]) and appears psychotic, unable to care for self. Obtain [facility] discharge paperwork. 01/23 Remains delusional and without any insight. However patient said that headache pain is less today which will hopefully Indicates that Risperdal is having some positive affect. Will leave the current dose for now to see If further improvements can be made Formulation: delusional disorder with hx of depression; no insight Plan: Q15 min safety checks, CV -Continue risperdal to 2 mg BID for now; likely need to increase for continued psychotic sx (on 01/21); initially started on APTU -brain MRI with and without contrast (done at [facility] on 01/11/22): Impression: Normal MRI of the IACs Without and with contrast> Monitor response to medications. Monitor for safety in the milieu. Discharge on stabilization. Patient seen. Chart reviewed. Discussed with team. Obtain collateral contact info?as needed I spent minutes with the patient and/or on the patient floor today, greater than?50% of which was spent counseling/coordinating care. Patient educated on: medication risk/benefits Informed Consent: understands Reason for contiued inpatient stay Substantial Risk for: inability to function and rapid decompensation
[2022-01-25 18:00] VITALS: BP 119/78; PULSE 98; RESP 16; TEMP 36.5; O2SAT 99
[2022-01-25] MEDS: traZODone HCL 50 MG TABLET PO (19:45)
[2022-01-26 06:00] VITALS: BP 116/72; PULSE 83; RESP 16; TEMP 36.3; O2SAT 99
[2022-01-26] MEDS: risperiDONE 2 MG TABLET PO ×2 (09:15→21:51)
--- NOTE | 2022-01-26 12:30 | HO.PSYCHPN ---
Subjective Subjective Date of Service: 01/26/22 Reason For Visit: Paranoia Subjective Notes: Conditional Voluntary Interim History: Pt reports he can't think clearly- describes difficulty expressing thoughts- difficulty answering questions , reports ABEL. He denies VH/AH. When asked about delusional content related to IRASEMA- states my doctors knows about that. He is taking medications as prescribed. Mostly in bed, visible at times, walk down the layton. No behavioral concerns. Medication Compliance: Yes Side effects from medications: No Review of Systems Review of Systems CVS: No c/o chest pain, palpitations, no SOB JOURNALISM INTERN: No c/o dizziness, headache GI: No c/o Nausea, Vomiting, diarrhea, constipation or heartburn Yes all other systems are reviewed and are negative Constitutional: Denies chills Cardiovascular: Denies chest pain and Denies dyspnea Respiratory: Denies dyspnea Gastrointestinal: Denies abdominal pain and Denies vomiting Mental Status Exam Mental Status Exam Narrative: Pt is alert and oriented; behavior is cooperative, friendly and calm; patient is not in distress; dressed in hospital attire with unkempt hair and marginal hygiene;? mood is described as good and affect a little blunted; eye contact appropriate; Speech is normal rate, volume and prosody and not pressured; no psychomotor agitation/retardation present; thought process is goal directed; Thought content is on delusional interactions with DOD; special, classified project; otherwise pertinent to relevant topics; denies any SI/HI. Auditory hallucinations present.? Patients insight and judgment are impaired Patient Appearance: Well Grooomed Patient Orientation: Person, Place and Situation Level of Consciousness: Awake Patient Behavior: Appropriate Mood Description: Flat and Apprehensive Affect Description: Withdrawn, Constricted and Apprehensive Speech Pattern: Impoverished and Monotone Memory Description: Episodic Impaired Diagnostics Vital Signs (24Hr): Vital Signs - 24 hr 01/27/22 16:16 01/28/22 06:00 Temperature 96 F L Pulse Rate 85 77 Respiratory Rate 20 16 Blood Pressure 125/72 126/67 Pulse Oximetry 96 BMI result Body Mass Index 17.4 Labs Results: 01/19/22 07:03 01/19/22 07:03 Medications Medications Current Medications Acetaminophen (Acetaminophen 325 Mg Tablet) 650 mg PO Q6H PRN PRN Reason: Headache/Pain Mild Scale (1-3) Al Hydroxide/Mg Hydroxide (Magnesium Hydrox/Alum Hydrox 30 Ml Oral.Susp) 30 ml PO Q6H PRN PRN Reason: Heartburn/Nausea Hydroxyzine HCl (Hydroxyzine Hcl 25 Mg Tablet) 25 mg PO BEDTIME PRN PRN Reason: Anxiety Lorazepam (Lorazepam 0.5 Mg Tablet) 0.5 mg PO Q6H PRN PRN Reason: anxiety/restlessness Magnesium Hydroxide (Milk Of Magnesia 30 Ml Oral.Susp) 30 ml PO DAILY PRN PRN Reason: Constipation Risperidone (Risperidone 2 Mg Tablet) 2 mg PO BID [facility] Last Admin: 01/28/22 08:30 Dose: 2 mg Documented by: Trazodone HCl (Trazodone Hcl 50 Mg Tablet) 50 mg PO BEDTIME [facility] Last Admin: 01/27/22 21:36 Dose: 50 mg Documented by: Allergies Allergies Allergy/AdvReac Type Severity Reaction Status Date / Time No Known Allergies Allergy Verified 01/18/22 17:46 Assessment & Plan Assessment & Plan (1) Schizoaffective disorder, depressive type: Status: Acute Code(s): F25.1 - Schizoaffective disorder, depressive type Plan Tomas is a 61 y.o. Male who carries a dx of schizoaffective disorder, depressive type. He [place] [facility] [place]17/[place] via ambulance called by [place] Police due to pt writing a note to police stating that he is in a high level [employer] project. Once at the ED, Tomas complained of headaches, memory loss, hearing loss, and word retrieval issues, which he attributes to high level radio frequency satellites. No substance or alcohol use concerns. HOSPITAL COURSE: 01/19/2022 Patient accepting Risperdal. Would do well with long-acting injectable. Unclear why patient has not had significant treatment over the past number of years. The collateral information from family he is asking we contact his stepfather. His 2 brothers states his no contact with. Patient does not have any children unclear how the patient has been living states he has over million dollars unclear if this is grandiose and delusional 01/20/2022 We would strongly recommend long-acting injectable. Contact family for additional information support unclear what other resources may be available 01/21/22: Increase risperdal to 2 mg BID, as pt has not had response to medication (risperdal started at [facility]) and appears psychotic, unable to care for self. Obtain [facility] discharge paperwork. 01/23 Remains delusional and without any insight. However patient said that headache pain is less today which will hopefully Indicates that Risperdal is having some positive affect. Will leave the current dose for now to see If further improvements can be made 01/26- continue current tx. Formulation: delusional disorder with hx of depression; no insight Plan: Q15 min safety checks, CV -risperdal to 2 mg BID for psychotic sx (on 01/21); initially started on APTU -obtain MRI results from [facility]: Impression not available in documentation faxed over, however in progress note attending referenced MRI of the brain from 01/11/2022 which she reported as ...unremarkable. Will try to get official impression Monitor response to medications. Monitor for safety in the milieu. Discharge on stabilization. Patient seen. Chart reviewed. Discussed with team. Obtain collateral contact info?as needed I spent minutes with the patient and/or on the patient floor today, greater than?50% of which was spent counseling/coordinating care. Reason for contiued inpatient stay Substantial Risk for: inability to function
[2022-01-26 21:39] VITALS: BP 114/68; PULSE 80; RESP 16; TEMP 36.6; O2SAT 96
[2022-01-26] MEDS: traZODone HCL 50 MG TABLET PO (21:51)
[2022-01-27] MEDS: risperiDONE 2 MG TABLET PO ×2 (08:45→21:36)
[2022-01-27 08:47] VITALS: BP 128/75; PULSE 88; RESP 18; TEMP 37.2; O2SAT 99
--- NOTE | 2022-01-27 11:31 | HO.PSYCHPN ---
Subjective Subjective Date of Service: 01/27/22 Reason For Visit: Paranoia Subjective Notes: Conditional Voluntary Interim History: Pt continues to report he can't think clearly- describes difficulty expressing thoughts- difficulty answering questions , reports ABEL. He denies VH/AH. When asked about delusional content related to IRAS[employer]- states my doctors knows about that. He is taking medications as prescribed. Mostly in bed, visible at times, walk down the lay[place]. No behavioral concerns. 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 mood is described as good and affect a little blunted; eye contact appropriate; Speech is normal rate, volume and prosody and not pressured; no psychomotor agitation/retardation present; thought process is goal directed; Thought content is on delusional interactions with DOD; special, classified project; otherwise pertinent to relevant topics; denies any SI/HI. Auditory hallucinations present.? Patients insight and judgment are impaired Diagnostics Vital Signs (24Hr): Vital Signs - 24 hr 01/27/22 16:16 01/28/22 06:00 Temperature 96 F L Pulse Rate 85 77 Respiratory Rate 20 16 Blood Pressure 125/72 126/67 Pulse Oximetry 96 BMI result Body Mass Index 17.4 Labs Results: 01/19/22 07:03 01/19/22 07:03 Medications Medications Current Medications Acetaminophen (Acetaminophen 325 Mg Tablet) 650 mg PO Q6H PRN PRN Reason: Headache/Pain Mild Scale (1-3) Al Hydroxide/Mg Hydroxide (Magnesium Hydrox/Alum Hydrox 30 Ml Oral.Susp) 30 ml PO Q6H PRN PRN Reason: Heartburn/Nausea Hydroxyzine HCl (Hydroxyzine Hcl 25 Mg Tablet) 25 mg PO BEDTIME PRN PRN Reason: Anxiety Lorazepam (Lorazepam 0.5 Mg Tablet) 0.5 mg PO Q6H PRN PRN Reason: anxiety/restlessness Magnesium Hydroxide (Milk Of Magnesia 30 Ml Oral.Susp) 30 ml PO DAILY PRN PRN Reason: Constipation Risperidone (Risperidone 2 Mg Tablet) 2 mg PO BID [facility] Last Admin: 01/28/22 08:30 Dose: 2 mg Documented by: Trazodone HCl (Trazodone Hcl 50 Mg Tablet) 50 mg PO BEDTIME [facility] Last Admin: 01/27/22 21:36 Dose: 50 mg Documented by: Allergies Allergies Allergy/AdvReac Type Severity Reaction Status Date / Time No Known Allergies Allergy Verified 01/18/22 17:46 Assessment & Plan Assessment & Plan (1) Schizoaffective disorder, depressive type: Status: Acute Code(s): F25.1 - Schizoaffective disorder, depressive type Plan Tomas is a 61 y.o. Male who carries a dx of schizoaffective disorder, depressive type. [place] [facility] [place] via ambulance called by [place] [employer] due to pt writing a note to police stating that he is in a high level [employer] project. Once at the ED, Tomas complained of headaches, memory loss, hearing loss, and word retrieval issues, which he attributes to high level radio frequency satellites. No substance or alcohol use concerns. HOSPITAL COURSE: 01/19/2022 Patient accepting Risperdal. Would do well with long-acting injectable. Unclear why patient has not had significant treatment over the past number of years. The collateral information from family he is asking we contact his stepfather. His 2 brothers states his no contact with. Patient does not have any children unclear how the patient has been living states he has over million dollars unclear if this is grandiose and delusional 01/20/2022 We would strongly recommend long-acting injectable. Contact family for additional information support unclear what other resources may be available 01/21/22: Increase risperdal to 2 mg BID, as pt has not had response to medication (risperdal started at [facility]) and appears psychotic, unable to care for self. Obtain [facility] discharge paperwork. 01/23 Remains delusional and without any insight. However patient said that headache pain is less today which will hopefully Indicates that Risperdal is having some positive affect. Will leave the current dose for now to see If further improvements can be made 01/26- continue current tx. 01/27 continue tx. Formulation: delusional disorder with hx of depression; no insight Plan: Q15 min safety checks, CV -risperdal to 2 mg BID for psychotic sx (on 01/21); initially started on APTU -obtain MRI results from [facility]: Impression not available in documentation faxed over, however in progress note attending referenced MRI of the brain from 01/11/2022 which she reported as ...unremarkable. Will try to get official impression Monitor response to medications. Monitor for safety in the milieu. Discharge on stabilization. Patient seen. Chart reviewed. Discussed with team. Obtain collateral contact info?as needed I spent minutes with the patient and/or on the patient floor today, greater than?50% of which was spent counseling/coordinating care. Reason for contiued inpatient stay Substantial Risk for: inability to function
[2022-01-27 16:16] VITALS: BP 125/72; PULSE 85; RESP 20; TEMP 35.5; O2SAT 96
[2022-01-27] MEDS: traZODone HCL 50 MG TABLET PO (21:36)
[2022-01-28 06:00] VITALS: BP 126/67; PULSE 77; RESP 16
[2022-01-28] MEDS: risperiDONE 2 MG TABLET PO (08:30)
--- NOTE | 2022-01-28 10:37 | HO.PSYCHPN ---
Subjective Subjective Date of Service: 01/28/22 Reason For Visit: Paranoia Interim History: Patient remains delusional and continues to have auditory hallucinations. He Report he receives Communications from the Department of [email or web address] system regarding his project. Patient says he really does think that the project is coming to near completion as this has been communicated. He says such information has been communicated in the past and Yet the project did not stop; however the frequency of this type of communication has Recently increased making him more hopeful. Delicatessen Slicer Made inquiry About this communication, but patient became silent and then said he could not find the words to talk about it. Patient reports continued headaches and the need to lie horizontally. He says he gets up and walks when he can. Mental Status Exam Mental Status Exam Narrative: Pt is alert and oriented; behavior is cooperative, friendly and calm; patient is not in distress; dressed in hospital attire with unkempt hair and marginal hygiene;? mood is described as good and affect a little blunted; eye contact appropriate; Speech is normal rate, volume and prosody and not pressured; no psychomotor agitation/retardation present; thought process is goal directed; Thought content is on delusional interactions with DOD; special, classified project; otherwise pertinent to relevant topics; denies any SI/HI.? Auditory hallucinations present.? Patients insight and judgment are impaired Diagnostics Vital Signs (24Hr): Vital Signs - 24 hr 01/27/22 16:16 01/28/22 06:00 Temperature 96 F L Pulse Rate 85 77 Respiratory Rate 20 16 Blood Pressure 125/72 126/67 Pulse Oximetry 96 BMI result Body Mass Index 17.4 Labs Results: 01/19/22 07:03 01/19/22 07:03 Medications Medications Current Medications Acetaminophen (Acetaminophen 325 Mg Tablet) 650 mg PO Q6H PRN PRN Reason: Headache/Pain Mild Scale (1-3) Al Hydroxide/Mg Hydroxide (Magnesium Hydrox/Alum Hydrox 30 Ml Oral.Susp) 30 ml PO Q6H PRN PRN Reason: Heartburn/Nausea Hydroxyzine HCl (Hydroxyzine Hcl 25 Mg Tablet) 25 mg PO BEDTIME PRN PRN Reason: Anxiety Lorazepam (Lorazepam 0.5 Mg Tablet) 0.5 mg PO Q6H PRN PRN Reason: anxiety/restlessness Magnesium Hydroxide (Milk Of Magnesia 30 Ml Oral.Susp) 30 ml PO DAILY PRN PRN Reason: Constipation Risperidone (Risperidone 2 Mg Tablet) 2 mg PO DAILY LOLA Risperidone (Risperidone 3 Mg Tablet) 3 mg PO BEDTIME LOLA Trazodone HCl (Trazodone Hcl 50 Mg Tablet) 50 mg PO BEDTIME LOLA Last Admin: 01/27/22 21:36 Dose: 50 mg Documented by: Allergies Allergies Allergy/AdvReac Type Severity Reaction Status Date / Time No Known Allergies Allergy Verified 01/18/22 17:46 Assessment & Plan Assessment & Plan (1) Schizoaffective disorder, depressive type: Status: Acute Code(s): F25.1 - Schizoaffective disorder, depressive type Plan Tomas is a 61 y.o. Male who carries a dx of schizoaffective disorder, depressive type. He presented to the [facility] ED on 01/17/22 via ambulance called by [place] Police due to pt writing a note to police stating that he is in a high level [employer] project. Once at the ED, Tomas complained of headaches, memory loss, hearing loss, and word retrieval issues, which he attributes to high level radio frequency satellites. No substance or alcohol use concerns. HOSPITAL COURSE: 01/19/2022 Patient accepting Risperdal. Would do well with long-acting injectable. Unclear why patient has not had significant treatment over the past number of years. The collateral information from family he is asking we contact his stepfather. His 2 brothers states his no contact with. Patient does not have any children unclear how the patient has been living states he has over million dollars unclear if this is grandiose and delusional 01/20/2022 We would strongly recommend long-acting injectable. Contact family for additional information support unclear what other resources may be available 01/21/22: Increase risperdal to 2 mg BID, as pt has not had response to medication (risperdal started at [facility]) and appears psychotic, unable to care for self. Obtain [facility] discharge paperwork. 01/23 Remains delusional and without any insight. However patient said that headache pain is less today which will hopefully Indicates that Risperdal is having some positive affect. Will leave the current dose for now to see If further improvements can be made 01/28 Patient remains psychotic with auditory hallucinations and paranoid delusions Formulation: delusional disorder with hx of depression; no insight Plan: Q15 min safety checks, CV -INCREASEd to Risperdal to 3 mg BID; Patient has remained psychotic for quite a long time in the longer he does the harder it becomes to treat. Will try to see if Risperdal is effective and titrated further but if no improvement will try another medication as patient psychotic symptoms make him unable to function in the community. (risperdal initially started on APTU) -brain MRI with and without contrast (done at [facility] on 01/11/22): Impression: Normal MRI of the IACs Without and with contrast> Monitor response to medications. Monitor for safety in the milieu. Discharge on stabilization. Patient seen. Chart reviewed. Discussed with team. Obtain collateral contact info?as needed I spent minutes with the patient and/or on the patient floor today, greater than?50% of which was spent counseling/coordinating care. Patient educated on: diagnosis Informed Consent: does not understand Reason for contiued inpatient stay Substantial Risk for: inability to function and rapid decompensation
[2022-01-28 18:00] VITALS: BP 126/79; PULSE 101; TEMP 36.8
[2022-01-28] MEDS: risperiDONE 3 MG TABLET PO (20:30)
[2022-01-28] MEDS: traZODone HCL 50 MG TABLET PO (20:30)
[2022-01-29 06:00] VITALS: BP 111/71; PULSE 90; RESP 16; TEMP 36.6; O2SAT 95
[2022-01-29] MEDS: risperiDONE 3 MG TABLET PO ×2 (07:54→20:25)
--- NOTE | 2022-01-29 10:45 | HO.PSYCHPN ---
Subjective Subjective Date of Service: 01/29/22 Reason For Visit: Paranoia Interim History: Patient continues to have delusional thoughts and auditory hallucinations about being a part of a special project involving the defense [employer], [facility] and that he is in communication with them via their satellite and electrical components in his brain. He says he continues to need to lie horizontally to mitigate head of the negative side effects of these electrical components. Patient had a cough today and tested positive for influenza (negative for COVID). reviewed [facility] summary Mental Status Exam Mental Status Exam Narrative: Pt is alert and oriented; behavior is cooperative, friendly and calm; patient is not in distress; dressed in hospital attire with unkempt hair and marginal hygiene;? mood is described as ok affect a little blunted; eye contact appropriate; Speech is normal rate, volume and prosody and not pressured; no psychomotor agitation/retardation present; thought process is goal directed; Thought content is on delusional interactions with DOD; special, classified project; otherwise pertinent to relevant topics; denies any SI/HI.? Auditory hallucinations present.? Patients insight and judgment are impaired Diagnostics Vital Signs (24Hr): Vital Signs - 24 hr 01/28/22 18:00 01/29/22 06:00 Temperature 98.3 F 97.9 F Pulse Rate 101 H 90 Respiratory Rate 16 Blood Pressure 126/79 111/71 Pulse Oximetry 95 BMI result Body Mass Index 17.4 Labs Results: 01/19/22 07:03 01/19/22 07:03 Medications Medications Current Medications Acetaminophen (Acetaminophen 325 Mg Tablet) 650 mg PO Q6H PRN PRN Reason: Headache/Pain Mild Scale (1-3) Al Hydroxide/Mg Hydroxide (Magnesium Hydrox/Alum Hydrox 30 Ml Oral.Susp) 30 ml PO Q6H PRN PRN Reason: Heartburn/Nausea Hydroxyzine HCl (Hydroxyzine Hcl 25 Mg Tablet) 25 mg PO BEDTIME PRN PRN Reason: Anxiety Lorazepam (Lorazepam 0.5 Mg Tablet) 0.5 mg PO Q6H PRN PRN Reason: anxiety/restlessness Magnesium Hydroxide (Milk Of Magnesia 30 Ml Oral.Susp) 30 ml PO DAILY PRN PRN Reason: Constipation Risperidone (Risperidone 3 Mg Tablet) 3 mg PO BID LOLA Last Admin: 01/29/22 07:54 Dose: 3 mg Documented by: Trazodone HCl (Trazodone Hcl 50 Mg Tablet) 50 mg PO BEDTIME LOLA Last Admin: 01/28/22 20:30 Dose: 50 mg Documented by: Allergies Allergies Allergy/AdvReac Type Severity Reaction Status Date / Time No Known Allergies Allergy Verified 01/18/22 17:46 Assessment & Plan Assessment & Plan (1) Schizoaffective disorder, depressive type: Status: Acute Code(s): F25.1 - Schizoaffective disorder, depressive type Plan Tomas is a 61 y.o. Male who carries a dx of schizoaffective disorder, depressive type, who presents for his 4th psychiatric hospitalization. He presented to the [facility] ED on 01/17/22 via ambulance called by [place] Police due to pt writing a note to police stating that he is in a high level [employer] project. Once at the ED, Tomas complained of headaches, memory loss, hearing loss, and word retrieval issues, which he attributes to high level radio frequency satellites. No substance or alcohol use concerns. HOSPITAL COURSE: 01/19/2022 Patient accepting Risperdal. Would do well with long-acting injectable. Unclear why patient has not had significant treatment over the past number of years. The collateral information from family he is asking we contact his stepfather. His 2 brothers states his no contact with. Patient does not have any children unclear how the patient has been living states he has over million dollars unclear if this is grandiose and delusional 01/20/2022 We would strongly recommend long-acting injectable. Contact family for additional information support unclear what other resources may be available 01/21/22: Increase risperdal to 2 mg BID, as pt has not had response to medication (risperdal started at [facility]) and appears psychotic, unable to care for self. Obtain [facility] discharge paperwork. 01/23 Remains delusional and without any insight. However patient said that headache pain is less today which will hopefully Indicates that Risperdal is having some positive affect. Will leave the current dose for now to see If further improvements can be made 01/28 Patient remains psychotic with auditory hallucinations and paranoid delusions -Risperdal 3 mg b.i.d. has not yet seem to reduce symptoms; will consider switching to another antipsychotic Formulation: Schizoaffective disorder depressed type. Patient meets criteria for schizophrenia has he has paranoid delusions with auditory hallucinations. Also has reported history of intermittent depressive episodes Plan: Q15 min safety checks, CV Schizophrenia (delusions + AH) -Risperdal to 3 mg BID; Patient has remained psychotic for quite a long time in the longer he does the harder it becomes to treat. Will try to see if Risperdal is effective and titrated further but if no improvement will try another medication as patient psychotic symptoms make him unable to function in the community. (risperdal initially started on APTU) -brain MRI with and without contrast (done at [facility] on 01/11/22): Impression: Normal MRI of the IACs Without and with contrast> -perphenazine mildly helpful but does not seem to have reduced symptoms any more than Risperdal +Influenza: Comfort medications Did not get flu shot Monitor response to medications. Monitor for safety in the milieu. Discharge on stabilization. Patient seen. Chart reviewed. Discussed with team. Obtain collateral contact info?as needed Chlorine Operator reviewed discharge summary from [facility] were patient was admitted on 12/12/2021 Same presentation, reporting he was part of a government to mind control program with associated AH and headaches. At 1st patient would not verbally talk to staff there are and only communicating via written communication. Patient treated with perphenazine titrated to 20 mg b.i.d. (may be error and meant daily as this is a very high dose). Reportedly patient some mild decrease in paranoid and delusional content and started verbally talking with treatment team, became less isolative and willing to walk the halls on the unit. -psychotic symptoms present for about 8 years That admission was the 3rd psychiatric hospitalization I spent minutes with the patient and/or on the patient floor today, greater than?50% of which was spent counseling/coordinating care. Patient educated on: medical condition Informed Consent: understands Reason for contiued inpatient stay Substantial Risk for: rapid decompensation
[2022-01-29 12:19] LABS: Influenza A PCR POSITIVE (Negative); Influenza B PCR NEGATIVE (Negative); Resp Syncy Virus RNA Qual PCR NEGATIVE (Negative); SARS COV2 PCR INHOUSE NEGATIVE (Negative)
--- NOTE | 2022-01-29 13:22 | PC.NURSE ---
Pt tested positive for Flu A. Pt denies any symptoms besides mild cough. Pt with private room at this time. Patient with no questions or concerns. made aware.
[2022-01-29 19:23] VITALS: BP 113/63; PULSE 82; TEMP 37.5; O2SAT 93
[2022-01-29] MEDS: traZODone HCL 50 MG TABLET PO (20:25)
[2022-01-30] MEDS: risperiDONE 3 MG TABLET PO (08:23)
[2022-01-30 08:46] VITALS: BP 116/67; PULSE 77; RESP 14; TEMP 37.1; O2SAT 94
[2022-01-30] MEDS: Acetaminophen 325 MG TABLET 650 MG PO (13:26)
[2022-01-30] MEDS: guaiFENesin 100 MG/5 ML LIQUID PO (13:26)
[2022-01-30 16:20] VITALS: BP 113/71; PULSE 74; TEMP 37.1
--- NOTE | 2022-01-30 16:55 | HO.PSYCHPN ---
Subjective Subjective Date of Service: 01/30/22 Reason For Visit: Paranoia Interim History: Feeling congested and a little achy dealing with influenza Patient remains with delusions and auditory hallucinations. He says he continues to get communications via of the [employer] casino beverage server. He says he has been communicating with them continually. Still he is hopeful that this covering project his about and. He said that he was either working with her appointed by [facility] and had a presidential order. Patient shared other aspects of this secret project he is been a part of. However he said he was also a hostage to it and that he had no choice but to be a participant and would very much like it end. Patient asked fiction and nonfiction prose writer to call his parents and see if they are still involved with their part of the government operation or has it ended. He wants to know if they are willing to have him live back at their home. He said that if they are done with their role in the [employer] operation that it will no longer constitute helping him which he says they have not been allowed to do. The he also asked for his cousin Odin to be called for the same reasons. Customer Relations Coordinator asked patient about perphenazine which he took at [facility]. He said he did not notice it much and says that it does not seem to be much different than the medication he is on. He agrees to change medication at fiction and nonfiction prose writer's discretion including adding and/or switching to another antipsychotic Mental Status Exam Mental Status Exam Narrative: Pt is alert and oriented; behavior is cooperative, friendly and calm; patient is not in distress; dressed in hospital attire with unkempt hair and marginal hygiene;? mood is described as ok...little achy ? affect a little blunted; eye contact appropriate; Speech is normal rate, volume and prosody and not pressured; no psychomotor agitation/retardation present; thought process is goal directed; Thought content is on delusional interactions with DOD; special, classified project; otherwise pertinent to relevant topics; denies any SI/HI.? Auditory hallucinations present.? Patients insight and judgment are impaired Diagnostics Vital Signs (24Hr): Vital Signs - 24 hr 01/29/22 19:23 01/30/22 08:46 Temperature 99.5 F 98.8 F Pulse Rate 82 77 Respiratory Rate 14 Blood Pressure 113/63 116/67 Pulse Oximetry 93 94 BMI result Body Mass Index 17.4 Labs Results: 01/19/22 07:03 01/19/22 07:03 Labs: Laboratory Results - last 48 hr 01/29/22 11:33 Influenza Type A (PCR) POSITIVE A Influenza Type B (PCR) NEGATIVE RSV RNA Qual (PCR) NEGATIVE SARS-CoV-2 RNA (RT-PCR) NEGATIVE Medications Medications Current Medications Acetaminophen (Acetaminophen 325 Mg Tablet) 650 mg PO Q6H PRN PRN Reason: Headache/Pain Mild Scale (1-3) Last Admin: 01/30/22 13:26 Dose: 650 mg Documented by: Al Hydroxide/Mg Hydroxide (Magnesium Hydrox/Alum Hydrox 30 Ml Oral.Susp) 30 ml PO Q6H PRN PRN Reason: Heartburn/Nausea Guaifenesin (Guaifenesin 100 Mg/5 Ml Liquid) 5 ml PO Q4H PRN PRN Reason: Cough Last Admin: 01/30/22 13:26 Dose: 5 ml Documented by: Hydroxyzine HCl (Hydroxyzine Hcl 25 Mg Tablet) 25 mg PO BEDTIME PRN PRN Reason: Anxiety Ibuprofen (Ibuprofen 600 Mg Tablet) 600 mg PO Q8H PRN PRN Reason: Pain, Mild (Pain Scale 1-3) Lorazepam (Lorazepam 0.5 Mg Tablet) 0.5 mg PO Q6H PRN PRN Reason: anxiety/restlessness Magnesium Hydroxide (Milk Of Magnesia 30 Ml Oral.Susp) 30 ml PO DAILY PRN PRN Reason: Constipation Risperidone (Risperidone 3 Mg Tablet) 3 mg PO BID [facility] Last Admin: 01/30/22 08:23 Dose: 3 mg Documented by: Trazodone HCl (Trazodone Hcl 50 Mg Tablet) 50 mg PO BEDTIME [facility] Last Admin: 01/29/22 20:25 Dose: 50 mg Documented by: Allergies Allergies Allergy/AdvReac Type Severity Reaction Status Date / Time No Known Allergies Allergy Verified 01/18/22 17:46 Assessment & Plan Assessment & Plan (1) Schizoaffective disorder, depressive type: Status: Acute Code(s): F25.1 - Schizoaffective disorder, depressive type Plan Tomas is a 61 y.o. Male who carries a dx of schizoaffective disorder, depressive type, who presents for his 4th psychiatric hospitalization. He presented to the [facility] ED on 01/17/22 via ambulance called by [place] Police due to pt writing a note to police stating that he is in a high level [employer] project. Once at the ED, Tomas complained of headaches, memory loss, hearing loss, and word retrieval issues, which he attributes to high level radio frequency satellites. No substance or alcohol use concerns. HOSPITAL COURSE: 01/19/2022 Patient accepting Risperdal. Would do well with long-acting injectable. Unclear why patient has not had significant treatment over the past number of years. The collateral information from family he is asking we contact his stepfather. His 2 brothers states his no contact with. Patient does not have any children unclear how the patient has been living states he has over million dollars unclear if this is grandiose and delusional 01/20/2022 We would strongly recommend long-acting injectable. Contact family for additional information support unclear what other resources may be available 01/21/22: Increase risperdal to 2 mg BID, as pt has not had response to medication (risperdal started at [facility]) and appears psychotic, unable to care for self. Obtain [facility] discharge paperwork. 01/23 Remains delusional and without any insight. However patient said that headache pain is less today which will hopefully Indicates that Risperdal is having some positive affect. Will leave the current dose for now to see If further improvements can be made 01/28 Patient remains psychotic with auditory hallucinations and paranoid delusions -Risperdal 3 mg b.i.d. has not yet seem to reduce symptoms; will consider switching to another antipsychotic 01/30 patient does not seem to have symptom reduction on Risperdal 6 mg total daily dose; he also reports he did not notice perphenazine making any difference and fiction and nonfiction prose writer's review of [facility] notes indicate patient had a very similar presentation as he does currently on Risperdal. Patient agrees to switching antipsychotic medication. Formulation: Schizoaffective disorder depressed type. Patient meets criteria for schizophrenia has he has paranoid delusions with auditory hallucinations. Also has reported history of intermittent depressive episodes Plan: Q15 min safety checks, CV Schizophrenia (delusions + AH) -START Zyprexa; since Risperdal (or perphenazine) has made little to no different -DC Risperdal (was at to 3 mg BID); Patient has remained psychotic for quite a long time in the longer he does the harder it becomes to treat. -brain MRI with and without contrast (done at [facility] on 01/11/22): Impression: Normal MRI of the IACs Without and with contrast> +Influenza: Comfort medications Did not get flu shot Monitor response to medications. Monitor for safety in the milieu. Discharge on stabilization. Patient seen. Chart reviewed. Discussed with team. Obtain collateral contact info?as needed Customer Relations Coordinator reviewed discharge summary from [facility] were patient was admitted on 12/12/2021 Same presentation, reporting he was part of a government to mind control program with associated AH and headaches. At 1st patient would not verbally talk to staff there are and only communicating via written communication. Patient treated with perphenazine titrated to 20 mg b.i.d. (may be error and meant daily as this is a very high dose). Reportedly patient some mild decrease in paranoid and delusional content and started verbally talking with treatment team, became less isolative and willing to walk the halls on the unit. -psychotic symptoms present for about 8 years That admission was the 3rd psychiatric hospitalization I spent minutes with the patient and/or on the patient floor today, greater than?50% of which was spent counseling/coordinating care. Reason for contiued inpatient stay Substantial Risk for: inability to function and rapid decompensation
[2022-01-30] MEDS: OLANZapine 5 MG TABLET PO (21:33)
[2022-01-30] MEDS: traZODone HCL 50 MG TABLET PO (21:33)
[2022-01-31] MEDS: Acetaminophen 325 MG TABLET 650 MG PO ×2 (06:47→19:35)
[2022-01-31] MEDS: guaiFENesin 100 MG/5 ML LIQUID PO ×2 (06:47→19:35)
[2022-01-31 06:52] VITALS: BP 122/75; PULSE 86; RESP 16; TEMP 37.4; O2SAT 94
--- NOTE | 2022-01-31 14:38 | HO.PSYCHPN ---
Subjective Subjective Date of Service: 01/31/22 Reason For Visit: Paranoia Interim History: Patient said that he is still feeling the effects of the flu but that he is overall okay. Patient denies any negative affects from switching to Zyprexa and agrees to continue taking it. Patient reports he continues to get communications via satellite and talks to and hears the people involved in the project which he says is an attack project. He did say that he got communication that the product will and in 2 weeks and at that time though be a 3 page printout for this short story writer to see. Patient said that he is listed with the joint chief meteorologist for [employer] and will continue to receive communications even after the project is over however he agrees it may decrease. Patient then said he thinks his mother is possibly committing a crime by not caring for him since she is legally responsible for him. Case Manager Specialist shared that given patient's age that he is over 18 that he is legally responsible for himself to which patient said he disagrees. Mental Status Exam Mental Status Exam Narrative: Pt is alert and oriented; behavior is cooperative, friendly and calm; patient is not in distress; dressed in hospital attire with unkempt hair and marginal hygiene;? mood is described as ok...the same ? affect a little blunted; eye contact appropriate; Speech is normal rate, volume and prosody and not pressured; no psychomotor agitation/retardation present; thought process is goal directed; Thought content is on delusional interactions with DOD; special, classified project; otherwise pertinent to relevant topics; denies any SI/HI.? Auditory hallucinations present.? Patients insight and judgment are impaired Diagnostics Vital Signs (24Hr): Vital Signs - 24 hr 01/30/22 16:20 01/31/22 06:52 Temperature 98.8 F 99.4 F Pulse Rate 74 86 Respiratory Rate 16 Blood Pressure 113/71 122/75 Pulse Oximetry 94 BMI result Body Mass Index 17.4 Labs Results: 01/19/22 07:03 01/19/22 07:03 Medications Medications Current Medications Acetaminophen (Acetaminophen 325 Mg Tablet) 650 mg PO Q6H PRN PRN Reason: Headache/Pain Mild Scale (1-3) Last Admin: 01/31/22 06:47 Dose: 650 mg Documented by: Al Hydroxide/Mg Hydroxide (Magnesium Hydrox/Alum Hydrox 30 Ml Oral.Susp) 30 ml PO Q6H PRN PRN Reason: Heartburn/Nausea Guaifenesin (Guaifenesin 100 Mg/5 Ml Liquid) 5 ml PO Q4H PRN PRN Reason: Cough Last Admin: 01/31/22 06:47 Dose: 5 ml Documented by: Hydroxyzine HCl (Hydroxyzine Hcl 25 Mg Tablet) 25 mg PO BEDTIME PRN PRN Reason: Anxiety Ibuprofen (Ibuprofen 600 Mg Tablet) 600 mg PO Q8H PRN PRN Reason: Pain, Mild (Pain Scale 1-3) Lorazepam (Lorazepam 0.5 Mg Tablet) 0.5 mg PO Q6H PRN PRN Reason: anxiety/restlessness Magnesium Hydroxide (Milk Of Magnesia 30 Ml Oral.Susp) 30 ml PO DAILY PRN PRN Reason: Constipation Olanzapine (Olanzapine 10 Mg Tablet) 10 mg PO BEDTIME [facility] Trazodone HCl (Trazodone Hcl 50 Mg Tablet) 50 mg PO BEDTIME LOLA Last Admin: 01/30/22 21:33 Dose: 50 mg Documented by: Allergies Allergies Allergy/AdvReac Type Severity Reaction Status Date / Time No Known Allergies Allergy Verified 01/18/22 17:46 Assessment & Plan Assessment & Plan (1) Schizoaffective disorder, depressive type: Status: Acute Code(s): F25.1 - Schizoaffective disorder, depressive type Plan HPI: Tomas is a 61 y.o. Male who carries a dx of schizoaffective disorder, depressive type, who presents for his 4th psychiatric hospitalization. He presented to the [facility] ED on 01/17/22 via ambulance called by [place] Police due to pt writing a note to police stating that he is in a high level [employer] project. Once at the ED, Tomas complained of headaches, memory loss, hearing loss, and word retrieval issues, which he attributes to high level radio frequency satellites. No substance or alcohol use concerns. HOSPITAL COURSE: 01/19/2022 Patient accepting Risperdal. Would do well with long-acting injectable. Unclear why patient has not had significant treatment over the past number of years. The collateral information from family he is asking we contact his stepfather. His 2 brothers states his no contact with. Patient does not have any children unclear how the patient has been living states he has over million dollars unclear if this is grandiose and delusional 01/20/2022 We would strongly recommend long-acting injectable. Contact family for additional information support unclear what other resources may be available 01/21/22: Increase risperdal to 2 mg BID, as pt has not had response to medication (risperdal started at [facility]) and appears psychotic, unable to care for self. Obtain [facility] discharge paperwork. 01/23 Remains delusional and without any insight. However patient said that headache pain is less today which will hopefully Indicates that Risperdal is having some positive affect. Will leave the current dose for now to see If further improvements can be made 01/28 Patient remains psychotic with auditory hallucinations and paranoid delusions -Risperdal 3 mg b.i.d. has not yet seem to reduce symptoms; will consider switching to another antipsychotic 01/30 DC Risperdal START Zyprexa patient does not seem to have symptom reduction on Risperdal 6 mg total daily dose; he also reports he did not notice perphenazine making any difference and short story writer's review of [facility] notes indicate patient had a very similar presentation as he does currently on Risperdal. Patient agrees to switching antipsychotic medication. 01/31 remains delusional and with AH. Tolerating Zyprexa Formulation: Schizoaffective disorder depressed type. Patient meets criteria for schizophrenia has he has paranoid delusions with auditory hallucinations. Also has reported history of intermittent depressive episodes PLAN: 1. Treat Schizophrenia (delusions + AH) -Increase to Zyprexa 10mg qhs (started on 01/30) -DC Risperdal (was at to 3 mg BID); Risperdal (or perphenazine) has made little to no different. -brain MRI with and without contrast (done at [facility] on 01/11/22): Impression: Normal MRI of the IACs Without and with contrast> 2. treat +Influenza: Comfort medications (Did not get flu shot) Q15 min safety checks, CV Monitor response to medications. Monitor for safety in the milieu. Discharge on stabilization. Patient seen. Chart reviewed. Discussed with team. Obtain collateral contact info?as needed Recent Psych hx: Case Manager Specialist reviewed discharge summary from [facility] were patient was admitted on 12/12/2021 Same presentation, reporting he was part of a government to mind control program with associated AH and headaches. At 1st patient would not verbally talk to staff there are and only communicating via written communication. Patient treated with perphenazine titrated to 20 mg b.i.d. (may be error and meant daily as this is a very high dose). Reportedly patient some mild decrease in paranoid and delusional content and started verbally talking with treatment team, became less isolative and willing to walk the halls on the unit. -psychotic symptoms present for about 8 years That admission was the 3rd psychiatric hospitalization I spent minutes with the patient and/or on the patient floor today, greater than?50% of which was spent counseling/coordinating care. Patient educated on: medication risk/benefits Informed Consent: further education needed Reason for contiued inpatient stay Substantial Risk for: inability to function and rapid decompensation
[2022-01-31 19:30] VITALS: BP 112/65; PULSE 80; TEMP 37.7
[2022-01-31] MEDS: OLANZapine 10 MG TABLET PO (21:37)
[2022-01-31] MEDS: traZODone HCL 50 MG TABLET PO (21:38)
[2022-02-01] MEDS: guaiFENesin 100 MG/5 ML LIQUID PO ×2 (09:15→19:56)
[2022-02-01] MEDS: Acetaminophen 325 MG TABLET 650 MG PO ×2 (09:15→19:56)
[2022-02-01 13:27] VITALS: BP 103/59; PULSE 71; RESP 16; TEMP 37.2; O2SAT 95
--- NOTE | 2022-02-01 14:21 | HO.PSYCHPN ---
Subjective Subjective Date of Service: 02/01/22 Reason For Visit: Paranoia Interim History: Patient says he feels the same has some aches and is congested however able to rest at night. He denies any side effects or effect at all from the Zyprexa 10 mg. He agrees to continue titration. He continues to have auditory hallucinations and delusional thoughts that he is receiving auditory communications via satellite to the electronics in his brain from the [employer] regarding secret project he is involved with Mental Status Exam Mental Status Exam Narrative: Pt is alert and oriented; behavior is cooperative, friendly and calm; patient is not in distress; dressed in hospital attire with unkempt hair and marginal hygiene;? mood is described as ok...the same ? affect a little blunted; eye contact appropriate; Speech is normal rate, volume and prosody and not pressured; no psychomotor agitation/retardation present; thought process is goal directed; Thought content is on delusional interactions with DOD; special, classified project; otherwise pertinent to relevant topics; denies any SI/HI.? Auditory hallucinations present.? Patients insight and judgment are impaired Diagnostics Vital Signs (24Hr): Vital Signs - 24 hr 01/31/22 19:30 02/01/22 13:27 Temperature 99.8 F 98.9 F Pulse Rate 80 71 Respiratory Rate 16 Blood Pressure 112/65 103/59 L Pulse Oximetry 95 BMI result Body Mass Index 17.4 Labs Results: 01/19/22 07:03 01/19/22 07:03 Medications Medications Current Medications Acetaminophen (Acetaminophen 325 Mg Tablet) 650 mg PO Q6H PRN PRN Reason: Headache/Pain Mild Scale (1-3) Last Admin: 02/01/22 09:15 Dose: 650 mg Documented by: Al Hydroxide/Mg Hydroxide (Magnesium Hydrox/Alum Hydrox 30 Ml Oral.Susp) 30 ml PO Q6H PRN PRN Reason: Heartburn/Nausea Guaifenesin (Guaifenesin 100 Mg/5 Ml Liquid) 5 ml PO Q4H PRN PRN Reason: Cough Last Admin: 02/01/22 09:15 Dose: 5 ml Documented by: Hydroxyzine HCl (Hydroxyzine Hcl 25 Mg Tablet) 25 mg PO BEDTIME PRN PRN Reason: Anxiety Ibuprofen (Ibuprofen 600 Mg Tablet) 600 mg PO Q8H PRN PRN Reason: Pain, Mild (Pain Scale 1-3) Lorazepam (Lorazepam 0.5 Mg Tablet) 0.5 mg PO Q6H PRN PRN Reason: anxiety/restlessness Magnesium Hydroxide (Milk Of Magnesia 30 Ml Oral.Susp) 30 ml PO DAILY PRN PRN Reason: Constipation Olanzapine (Olanzapine 10 Mg Tablet) 10 mg PO BEDTIME [facility] Last Admin: 01/31/22 21:37 Dose: 10 mg Documented by: Trazodone HCl (Trazodone Hcl 50 Mg Tablet) 50 mg PO BEDTIME [facility] Last Admin: 01/31/22 21:38 Dose: 50 mg Documented by: Allergies Allergies Allergy/AdvReac Type Severity Reaction Status Date / Time No Known Allergies Allergy Verified 01/18/22 17:46 Assessment & Plan Assessment & Plan (1) Schizoaffective disorder, depressive type: Status: Acute Code(s): F25.1 - Schizoaffective disorder, depressive type Plan HPI: Tomas is a 61 y.o. Male who carries a dx of schizoaffective disorder, depressive type, who presents for his 4th psychiatric hospitalization. He presented to the [facility] ED on 01/17/22 via ambulance called by [place] Police due to pt writing a note to police stating that he is in a high level [employer] project. Once at the ED, Tomas complained of headaches, memory loss, hearing loss, and word retrieval issues, which he attributes to high level radio frequency satellites. No substance or alcohol use concerns. HOSPITAL COURSE: 01/19/2022 Patient accepting Risperdal. Would do well with long-acting injectable. Unclear why patient has not had significant treatment over the past number of years. The collateral information from family he is asking we contact his stepfather. His 2 brothers states his no contact with. Patient does not have any children unclear how the patient has been living states he has over million dollars unclear if this is grandiose and delusional 01/20/2022 We would strongly recommend long-acting injectable. Contact family for additional information support unclear what other resources may be available 01/21/22: Increase risperdal to 2 mg BID, as pt has not had response to medication ([place] [facility] and appears psychotic, unable to care for self. Obtain [facility] [place]. 01/23 Remains delusional and without any insight. However patient said that headache pain is less today which will hopefully Indicates that Risperdal is having some positive affect. Will leave the current dose for now to see If further improvements can be made 01/28 Patient remains psychotic with auditory hallucinations and paranoid delusions -Risperdal 3 mg b.i.d. has not yet seem to reduce symptoms; will consider switching to another antipsychotic 01/30 DC Risperdal START Zyprexa patient does not seem to have symptom reduction on Risperdal 6 mg total daily dose; he also reports he did not notice perphenazine making any difference and securities underwriter's review of [facility] notes indicate patient had a very similar presentation as he does currently on Risperdal. Patient agrees to switching antipsychotic medication. 01/31 remains delusional and with AH. Tolerating Zyprexa -titrate Zyprexa further. Given patient's age it is preferable to see if 10 mg can eventually reduce symptoms; however the longer patient remains psychotic the harder his psychosis will be to treat. Current literature shows significant evidence that once a medication is at therapeutic dose there is usually a reduction in symptoms when initiating an antipsychotic, within the first couple days. As there has yet to be any effect, it is thus very likely that he will eventually be titrated to at least 15 mg and since he denies any side effects at all will continue to titrate Formulation: Schizoaffective disorder depressed type. Patient meets criteria for schizophrenia has he has paranoid delusions with auditory hallucinations. Also has reported history of intermittent depressive episodes PLAN: Bp on low side; will encourage fluids 1. Treat Schizophrenia (delusions + AH) -INCREASE to Zyprexa 15mg qhs (zyprexa started on 01/30) -Discontinued Risperdal (was at to 3 mg BID); Risperdal (or perphenazine) has made little to no different. -brain MRI with and without contrast (done at [facility] on 01/11/22): Impression: Normal MRI of the IACs Without and with contrast> 2. treat +Influenza: Comfort medications (Did not get flu shot) Q15 min safety checks, CV Monitor response to medications. Monitor for safety in the milieu. Discharge on stabilization. Patient seen. Chart reviewed. Discussed with team. 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 At 1st patient would not verbally talk to staff there are and only communicating via written communication. Patient treated with perphenazine titrated to 20 mg b.i.d. (may be error and meant daily as this is a very high dose). Reportedly patient some mild decrease in paranoid and delusional content and started verbally talking with treatment team, became less isolative and willing to walk the halls on the unit. -psychotic symptoms present for about 8 years That admission was the 3rd psychiatric hospitalization I spent minutes with the patient and/or on the patient floor today, greater than?50% of which was spent counseling/coordinating care. Patient educated on: diagnosis Informed Consent: does not understand Reason for contiued inpatient stay Substantial Risk for: inability to function and rapid decompensation
[2022-02-01 18:00] VITALS: BP 98/59; PULSE 58; RESP 16; TEMP 36.6; O2SAT 96
[2022-02-01] MEDS: traZODone HCL 50 MG TABLET PO (20:53)
[2022-02-01] MEDS: OLANZapine 7.5 MG TABLET 15 MG PO (20:53)
[2022-02-02 06:00] VITALS: BP 119/72; PULSE 58; RESP 15; TEMP 36.6; O2SAT 97
--- NOTE | 2022-02-02 16:46 | P.PNPSI_ITS ---
Subjective Subjective Date of Service: 02/02/22 Reason For Visit: Paranoia Interim History: Patient continues to have auditory hallucinations and delusional belief about being part of special operation. He says he continues to talk to them throughout the day with the same intensity as always. Patient says flu symptoms are definitely getting better, no longer achy. Sleeping fine Mental Status Exam Mental Status Exam Narrative: Pt is alert and oriented; behavior is cooperative, friendly and calm; patient is not in distress; dressed in hospital attire with unkempt hair and marginal hygiene;? mood is described as ok...the same ? affect a little blunted; eye contact appropriate; Speech is normal rate, volume and prosody and not pressured; no psychomotor agitation/retardation present; thought process is goal directed; Thought content is on delusional interactions with DOD; special, classified project; otherwise pertinent to relevant topics; denies any SI/HI.? Auditory hallucinations present.? Patients insight and judgment are impaired Diagnostics Vital Signs (24Hr): Vital Signs - 24 hr 02/01/22 18:00 02/02/22 06:00 Temperature 98 F 97.9 F Pulse Rate 58 58 Respiratory Rate 16 15 Blood Pressure 98/59 L 119/72 Pulse Oximetry 96 97 BMI result Body Mass Index 17.4 Labs Results: 01/19/22 07:03 01/19/22 07:03 Medications Medications Current Medications Acetaminophen (Acetaminophen 325 Mg Tablet) 650 mg PO Q6H PRN PRN Reason: Headache/Pain Mild Scale (1-3) Last Admin: 02/01/22 19:56 Dose: 650 mg Documented by: Al Hydroxide/Mg Hydroxide (Magnesium Hydrox/Alum Hydrox 30 Ml Oral.Susp) 30 ml PO Q6H PRN PRN Reason: Heartburn/Nausea Guaifenesin (Guaifenesin 100 Mg/5 Ml Liquid) 5 ml PO Q4H PRN PRN Reason: Cough Last Admin: 02/01/22 19:56 Dose: 5 ml Documented by: Hydroxyzine HCl (Hydroxyzine Hcl 25 Mg Tablet) 25 mg PO BEDTIME PRN PRN Reason: Anxiety Ibuprofen (Ibuprofen 600 Mg Tablet) 600 mg PO Q8H PRN PRN Reason: Pain, Mild (Pain Scale 1-3) Magnesium Hydroxide (Milk Of Magnesia 30 Ml Oral.Susp) 30 ml PO DAILY PRN PRN Reason: Constipation Olanzapine (Olanzapine 7.5 Mg Tablet) 15 mg PO BEDTIME [facility] Last Admin: 02/01/22 20:53 Dose: 15 mg Documented by: Trazodone HCl (Trazodone Hcl 50 Mg Tablet) 50 mg PO BEDTIME [facility] Last Admin: 02/01/22 20:53 Dose: 50 mg Documented by: Allergies Allergies Allergy/AdvReac Type Severity Reaction Status Date / Time No Known Allergies Allergy Verified 01/18/22 17:46 Assessment & Plan Assessment & Plan (1) Schizoaffective disorder, depressive type: Status: Acute Code(s): F25.1 - Schizoaffective disorder, depressive type Plan HPI: Tomas is a 61 y.o. Male who carries a dx of schizoaffective disorder, depressive type, who presents for his 4th psychiatric hospitalization. He presented to the [facility] ED on 01/17/22 via ambulance called by [place] [employer] due to pt writing a note to police stating that he is in a high level [employer] project. Once at the ED, Tomas complained of headaches, memory loss, hearing loss, and word retrieval issues, which he attributes to high level radio frequency satellites. No substance or alcohol use concerns. HOSPITAL COURSE: 01/19/2022 Patient accepting Risperdal. Would do well with long-acting injectable. Unclear why patient has not had significant treatment over the past number of years. The collateral information from family he is asking we contact his stepfather. His 2 brothers states his no contact with. Patient does not have any children unclear how the patient has been living states he has over million dollars unclear if this is grandiose and delusional 01/20/2022 We would strongly recommend long-acting injectable. Contact family for additional information support unclear what other resources may be available 01/21/22: Increase risperdal to 2 mg BID, as pt has not had response to medication (risperdal started at [facility]) and appears psychotic, unable to care for self. Obtain [facility] discharge paperwork. 01/23 Remains delusional and without any insight. However patient said that headache pain is less today which will hopefully Indicates that Risperdal is having some positive affect. Will leave the current dose for now to see If further improvements can be made 01/28 Patient remains psychotic with auditory hallucinations and paranoid delusions -Risperdal 3 mg b.i.d. has not yet seem to reduce symptoms; will consider switching to another antipsychotic 01/30 DC Risperdal START Zyprexa patient does not seem to have symptom reduction on Risperdal 6 mg total daily dose; he also reports he did not notice perphenazine making any difference and global technical writer's review of [facility] notes indicate patient had a very similar presentation as he does currently on Risperdal. Patient agrees to switching antipsychotic medication. 01/31 remains delusional and with AH. Tolerating Zyprexa -titrate Zyprexa further. Given patient's age it is preferable to see if 10 mg can eventually reduce symptoms; however the longer patient remains psychotic the harder his psychosis will be to treat. Current literature shows significant evidence that once a medication is at therapeutic dose there is usually a reduction in symptoms when initiating an antipsychotic, within the first couple days. As there has yet to be any effect, it is thus very likely that he will eventually be titrated to at least 15 mg and since he denies any side effects at all will continue to titrate Formulation: Schizoaffective disorder depressed type. Patient meets criteria for schizophrenia has he has paranoid delusions with auditory hallucinations. Also has reported history of intermittent depressive episodes PLAN: Bp on low side; will encourage fluids 1. Treat Schizophrenia (delusions + AH) -Zyprexa 15mg qhs (zyprexa started on 01/30) -Dc'dRisperdal (was at to 3 mg BID); Risperdal (or perphenazine) has made little to no different. -brain MRI with and without contrast (done at [facility] on 01/11/22): Impression: Normal MRI of the IACs Without and with contrast> 2. treat +Influenza: resolving Comfort medications (Did not get flu shot) Q15 min safety checks, CV Monitor response to medications. Monitor for safety in the milieu. Discharge on stabilization. Patient seen. Chart reviewed. Discussed with team. 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 At 1st patient would not verbally talk to staff there are and only communicating via written communication. Patient treated with perphenazine titrated to 20 mg b.i.d. (may be error and meant daily as this is a very high dose). Reportedly patient some mild decrease in paranoid and delusional content and started verbally talking with treatment team, became less isolative and willing to walk the halls on the unit. -psychotic symptoms present for about 8 years That admission was the 3rd psychiatric hospitalization I spent minutes with the patient and/or on the patient floor today, greater than?50% of which was spent counseling/coordinating care. Patient educated on: diagnosis Informed Consent: does not understand Reason for contiued inpatient stay Substantial Risk for: inability to function and rapid decompensation
[2022-02-02 17:45] VITALS: BP 115/69; PULSE 70; TEMP 36.9; O2SAT 96
[2022-02-02] MEDS: OLANZapine 7.5 MG TABLET 15 MG PO (20:38)
[2022-02-02] MEDS: traZODone HCL 50 MG TABLET PO (20:38)
[2022-02-03 06:00] VITALS: BP 118/78; PULSE 85; RESP 16; TEMP 36.7; O2SAT 98
--- NOTE | 2022-02-03 16:57 | HO.PSYCHPN ---
Subjective Subjective Date of Service: 02/03/22 Reason For Visit: Paranoia Interim History: No change. Patient reports continued auditory hallucinations and paranoid delusions; no insight. Flu symptoms he thinks are mostly resolved Mental Status Exam Mental Status Exam Narrative: Pt is alert and oriented; behavior is cooperative, friendly and calm; patient is not in distress; dressed in hospital attire with unkempt hair and marginal hygiene;? mood is described as ok... ? affect a little blunted; eye contact appropriate; Speech is normal rate, volume and prosody and not pressured; no psychomotor agitation/retardation present; thought process is goal directed; Thought content is on delusional interactions with DOD; special, classified project; otherwise pertinent to relevant topics; denies any SI/HI.? Auditory hallucinations present.? Patients insight and judgment are impaired Diagnostics Vital Signs (24Hr): Vital Signs - 24 hr 02/02/22 17:45 02/03/22 06:00 Temperature 98.5 F 98.1 F Pulse Rate 70 85 Respiratory Rate 16 Blood Pressure 115/69 118/78 Pulse Oximetry 96 98 BMI result Body Mass Index 17.4 Labs Results: 01/19/22 07:03 01/19/22 07:03 Medications Medications Current Medications Acetaminophen (Acetaminophen 325 Mg Tablet) 650 mg PO Q6H PRN PRN Reason: Headache/Pain Mild Scale (1-3) Last Admin: 02/01/22 19:56 Dose: 650 mg Documented by: Al Hydroxide/Mg Hydroxide (Magnesium Hydrox/Alum Hydrox 30 Ml Oral.Susp) 30 ml PO Q6H PRN PRN Reason: Heartburn/Nausea Guaifenesin (Guaifenesin 100 Mg/5 Ml Liquid) 5 ml PO Q4H PRN PRN Reason: Cough Last Admin: 02/01/22 19:56 Dose: 5 ml Documented by: Hydroxyzine HCl (Hydroxyzine Hcl 25 Mg Tablet) 25 mg PO BEDTIME PRN PRN Reason: Anxiety Ibuprofen (Ibuprofen 600 Mg Tablet) 600 mg PO Q8H PRN PRN Reason: Pain, Mild (Pain Scale 1-3) Magnesium Hydroxide (Milk Of Magnesia 30 Ml Oral.Susp) 30 ml PO DAILY PRN PRN Reason: Constipation Olanzapine (Olanzapine 10 Mg Tablet) 20 mg PO BEDTIME [facility] Trazodone HCl (Trazodone Hcl 50 Mg Tablet) 50 mg PO BEDTIME LOLA Last Admin: 02/02/22 20:38 Dose: 50 mg Documented by: Allergies Allergies Allergy/AdvReac Type Severity Reaction Status Date / Time No Known Allergies Allergy Verified 01/18/22 17:46 Assessment & Plan Assessment & Plan (1) Schizoaffective disorder, depressive type: Status: Acute Code(s): F25.1 - Schizoaffective disorder, depressive type Plan HPI: Tomas is a 61 y.o. Male who carries a dx of schizoaffective disorder, depressive type, who presents for his 4th psychiatric hospitalization. He presented to the [facility] ED on 01/17/22 via ambulance called by [place] [employer] due to pt writing a note to police stating that he is in a high level [email or web address] project. Once at the ED, Tomas complained of headaches, memory loss, hearing loss, and word retrieval issues, which he attributes to high level radio frequency satellites. No substance or alcohol use concerns. HOSPITAL COURSE: 01/19/2022 Patient accepting Risperdal. Would do well with long-acting injectable. Unclear why patient has not had significant treatment over the past number of years. The collateral information from family he is asking we contact his stepfather. His 2 brothers states his no contact with. Patient does not have any children unclear how the patient has been living states he has over million dollars unclear if this is grandiose and delusional 01/20/2022 We would strongly recommend long-acting injectable. Contact family for additional information support unclear what other resources may be available 01/21/22: Increase risperdal to 2 mg BID, as pt has not had response to medication (risperdal started at [facility]) and appears psychotic, unable to care for self. Obtain [facility] discharge paperwork. 01/23 Remains delusional and without any insight. However patient said that headache pain is less today which will hopefully Indicates that Risperdal is having some positive affect. Will leave the current dose for now to see If further improvements can be made 01/28 Patient remains psychotic with auditory hallucinations and paranoid delusions -Risperdal 3 mg b.i.d. has not yet seem to reduce symptoms; will consider switching to another antipsychotic 01/30 DC Risperdal START Zyprexa patient does not seem to have symptom reduction on Risperdal 6 mg total daily dose; he also reports he did not notice perphenazine making any difference and life underwriter's review of [facility] notes indicate patient had a very similar presentation as he does currently on Risperdal. Patient agrees to switching antipsychotic medication. 01/31 remains delusional and with AH. Tolerating Zyprexa -titrate Zyprexa further. Given patient's age it is preferable to see if 10 mg can eventually reduce symptoms; however the longer patient remains psychotic the harder his psychosis will be to treat. Current literature shows significant evidence that once a medication is at therapeutic dose there is usually a reduction in symptoms when initiating an antipsychotic, within the first couple days. As there has yet to be any effect, it is thus very likely that he will eventually be titrated to at least 15 mg and since he denies any side effects at all will continue to titrate 02/03 remains psychotic with auditory hallucinations and delusions. Agrees with continued titration of Zyprexa Formulation: Schizoaffective disorder depressed type. Patient meets criteria for schizophrenia has he has paranoid delusions with auditory hallucinations. Also has reported history of intermittent depressive episodes PLAN: Bp on low side; will encourage fluids 1. Treat Schizophrenia (delusions + AH) -INCREASE to Zyprexa 20mg qhs (zyprexa started on 01/30) -Dc'dRisperdal (was at to 3 mg BID); Risperdal (or perphenazine) has made little to no different. -brain MRI with and without contrast (done at [facility] on 01/11/22): Impression: Normal MRI of the IACs Without and with contrast> 2. treat +Influenza: resolving Comfort medications (Did not get flu shot) Q15 min safety checks, CV Monitor response to medications. Monitor for safety in the milieu. Discharge on stabilization. Patient seen. Chart reviewed. Discussed with team. 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 At 1st patient would not verbally talk to staff there are and only communicating via written communication. Patient treated with perphenazine titrated to 20 mg b.i.d. (may be error and meant daily as this is a very high dose). Reportedly patient some mild decrease in paranoid and delusional content and started verbally talking with treatment team, became less isolative and willing to walk the halls on the unit. -psychotic symptoms present for about 8 years That admission was the 3rd psychiatric hospitalization I spent minutes with the patient and/or on the patient floor today, greater than?50% of which was spent counseling/coordinating care. Reason for contiued inpatient stay Substantial Risk for: inability to function and rapid decompensation
[2022-02-03] MEDS: OLANZapine 10 MG TABLET 20 MG PO (21:25)
[2022-02-03] MEDS: traZODone HCL 50 MG TABLET PO (21:25)
[2022-02-04 06:00] VITALS: BP 133/75; PULSE 80; RESP 16; TEMP 37; O2SAT 100
--- NOTE | 2022-02-04 17:11 | P.PNPSI_ITS ---
Subjective Subjective Date of Service: 02/04/22 Reason For Visit: Paranoia Interim History: Patient says that he is better and flu symptoms have resolved. He said that he definitively heard the project is going to be winding down within the next 24-48 hours. He says at that time this card writer hand will get a letter attesting to as much. He said something about a safety call from [facility]. Patient reports that he continues to hear and get communications from project resources and com municates back. He agrees however that when the project ends, communications should also become much less frequent and possibly discontinue and he says he is hopeful this will happen. Mental Status Exam Mental Status Exam Narrative: Pt is alert and oriented; behavior is cooperative, friendly and calm; patient is not in distress; dressed in hospital attire with unkempt hair and marginal hygiene;? mood is described as ok... ? affect a little blunted; eye contact appropriate; Speech is normal rate, volume and prosody and not pressured; no psychomotor agitation/retardation present; thought process is goal directed; Thought content is on delusional interactions with DOD; special, classified pro ject; otherwise pertinent to relevant topics; denies any SI/HI.? Auditory hallucinations present.? Patients insight and judgment are impaired Diagnostics Vital Signs (24Hr): Vital Signs - 24 hr 02/04/22 06:00 Temperature 98.6 F Pulse Rate 80 Respiratory Rate 16 Blood Pressure 133/75 Pulse Oximetry 100 BMI result Body Mass Index 17.4 Labs Results: 01/19/22 07:03 01/19/22 07:03 Medications Medications Current Medications Acetaminophen (Acetaminophen 325 Mg Tablet) 650 mg PO Q6H PRN PRN Reason: Headache/Pain Mild Scale (1-3) Last Admin: 02/01/22 19:56 Dose: 650 mg Documented by: Al Hydroxide/Mg Hydroxide (Magnesium Hydrox/Alum Hydrox 30 Ml Oral.Susp) 30 ml PO Q6H PRN PRN Reason: Heartburn/Nausea Guaifenesin (Guaifenesin 100 Mg/5 Ml Liquid) 5 ml PO Q4H PRN PRN Reason: Cough Last Admin: 02/01/22 19:56 Dose: 5 ml Documented by: Hydroxyzine HCl (Hydroxyzine Hcl 25 Mg Tablet) 25 mg PO BEDTIME PRN PRN Reason: Anxiety Ibuprofen (Ibuprofen 600 Mg Tablet) 600 mg PO Q8H PRN PRN Reason: Pain, Mild (Pain Scale 1-3) Magnesium Hydroxide (Milk Of Magnesia 30 Ml Oral.Susp) 30 ml PO DAILY PRN PRN Reason: Constipation Olanzapine (Olanzapine 10 Mg Tablet) 20 mg PO BEDTIME [facility] Last Admin: 02/03/22 21:25 Dose: 20 mg Documented by: Trazodone HCl (Trazodone Hcl 50 Mg Tablet) 50 mg PO BEDTIME [facility] Last Admin: 02/03/22 21:25 Dose: 50 mg Documented by: Allergies Allergies Allergy/AdvReac Type Severity Reaction Status Date / Time No Known Allergies Allergy Verified 01/18/22 17:46 Assessment & Plan Assessment & Plan (1) Schizoaffective disorder, depressive type: Status: Acute Code(s): F25.1 - Schizoaffective disorder, depressive type Plan HPI: Tomas is a 61 y.o. Male who carries a dx of schizoaffective disorder, depressive type, who presents for his 4th psychiatric hospitalization. He presented to the [facility] ED on 01/17/22 via ambulance called by [place] [employer] due to pt writing a note to police stating that he is in a high level [employer] project. Once at the ED, Tomas complained of headaches, memory loss, hearing loss, and word retrieval issues, which he attributes to high level radio frequency satellites. No substance or alcohol use concerns. HOSPITAL COURSE: 01/19/2022 Patient accepting Risperdal. Would do well with long-acting injectable. Unclear why patient has not had significant treatment over the past number of years. The collateral information from family he is asking we contact his stepfather. His 2 brothers states his no contact with. Patient does not have any children unclear how the patient has been living states he has over million dollars unclear if this is grandiose and delusional 01/20/2022 We would strongly recommend long-acting injectable. Contact family for additional information support unclear what other resources may be available 01/21/22: Increase risperdal to 2 mg BID, as pt has not had response to me dication (risperdal started at [facility]) and appears psychotic, unable to care for self. Obtain [facility] discharge paperwork. 01/23 Remains delusional and without any insight. However patient said that headache pain is less today which will hopefully Indicates that Risperdal is having some positive affect. Will leave the current dose for now to see If further improvements can be made 01/28 Patient remains psychotic with auditory hallucinations and paranoid delusions -Risperdal 3 mg b.i.d. has not yet seem to reduce symptoms; will consider switching to another antipsychotic 01/30 DC Risperdal START Zyprexa patient does not seem to have symptom reduction on Risperdal 6 mg total daily dose; he also reports he did not notice perphenazine making any difference and card writer hand's review of [facility] notes indicate patient had a very similar presentation as he does currently on Risperdal. Patient agrees to switching antipsychotic medication. 01/31 remains delusional and with AH. Tolerating Zyprexa -titrate Zyprexa further. Given patient's age it is preferable to see if 10 mg can eventually reduce symptoms; however the longer patient remains psychotic the harder his psychosis will be to treat. Current literature shows significant evidence that once a medication is at therapeutic dose there is usually a r eduction in symptoms when initiating an antipsychotic, within the first couple days. As there has yet to be any effect, it is thus very likely that he will eventually be titrated to at least 15 mg and since he denies any side effects at all will continue to titrate 02/03 remains psychotic with auditory hallucinations and delusions. Agrees with continued titration of Zyprexa 02/04 no change; continue tx Formulation: Schizoaffective disorder depressed type. Patient meets criteria for schizophrenia has he has paranoid delusions with auditory hallucinations. Also has reported history of intermittent depressive episodes PLAN: Bp on low side; will encourage fluids 1. Treat Schizophrenia (delusions + AH) -Continue Zyprexa 20mg qhs (zyprexa started on 01/30) -Dc'dRisperdal (was at to 3 mg BID); Risperdal (or perphenazine) has made little to no different. -brain MRI with and without contrast (done at [facility] on 01/11/22): Impression: Normal MRI of the IACs Without and with contrast> 2. treat +Influenza: resolving Comfort medications (Did not get flu shot) Q15 min safety checks, CV Monitor response to medications. Monitor for safety in the milieu. Discharge on stabilization. Patient seen. Chart reviewed. Discussed with team. 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 At 1st patient would not verbally talk to staff there are and only communicating via written communication. Patient treated with perphenazine titrated to 20 mg b.i.d. (may be error and meant daily as this is a very high dose). Reportedly patient some mild decrease in paranoid and delusional content and started verbally talking with treatment team, became less isolative and willing to walk the halls on the unit. -psychotic symptoms present for about 8 years That admission was the 3rd psychiatric hospitalization I spent minutes with the patient and/or on the patient floor today, greater than?50% of which was spent counseling/coordinating care. Informed Consent: does not understand Reason for contiued inpatient stay Substantial Risk for: inability to function
[2022-02-04 21:00] VITALS: BP 113/57; PULSE 64; TEMP 36.7; O2SAT 96
[2022-02-04] MEDS: traZODone HCL 50 MG TABLET PO (23:02)
[2022-02-04] MEDS: OLANZapine 10 MG TABLET 20 MG PO (23:02)
[2022-02-05 06:00] VITALS: BP 118/79; PULSE 65; TEMP 36.7; O2SAT 97
--- NOTE | 2022-02-05 17:42 | P.PNPSI_ITS ---
Subjective Subjective Date of Service: 02/05/22 Reason For Visit: Paranoia Interim History: Reiterates that he has received confirmation that project will end in 24-48 hours; says will receive 3-5 page fax regarding. Currently however, he continues to have same amount of dialog back and forth Mental Status Exam Mental Status Exam Narrative: Pt is alert and oriented; behavior is cooperative, friendly and calm; patient is not in distress; dressed in hospital attire with unkempt hair and marginal hygiene;? mood is described as ok... ? affect a little blunted; eye contact appropriate; Speech is normal rate, volume and prosody and not pressured; no psychomotor agitation/retardation present; thought process is goal directed; Thought content is on delusional interactions with DOD; special, classified project; otherwise pertinent to relevant topics; denies any SI/HI.? Auditory hallucinations present.? Patients insight and judgment are impaired Diagnostics Vital Signs (24Hr): Vital Signs - 24 hr 02/04/22 21:00 02/05/22 06:00 Temperature 98.0 F 98.0 F Pulse Rate 64 65 Blood Pressure 113/57 L 118/79 Pulse Oximetry 96 97 BMI result Body Mass Index 17.4 Labs Results: 01/19/22 07:03 01/19/22 07:03 Medications Medications Current Medications Acetaminophen (Acetaminophen 325 Mg Tablet) 650 mg PO Q6H PRN PRN Reason: Headache/Pain Mild Scale (1-3) Last Admin: 02/01/22 19:56 Dose: 650 mg Documented by: Al Hydroxide/Mg Hydroxide (Magnesium Hydrox/Alum Hydrox 30 Ml Oral.Susp) 30 ml PO Q6H PRN PRN Reason: Heartburn/Nausea Guaifenesin (Guaifenesin 100 Mg/5 Ml Liquid) 5 ml PO Q4H PRN PRN Reason: Cough Last Admin: 02/01/22 19:56 Dose: 5 ml Documented by: Hydroxyzine HCl (Hydroxyzine Hcl 25 Mg Tablet) 25 mg PO BEDTIME PRN PRN Reason: Anxiety Ibuprofen (Ibuprofen 600 Mg Tablet) 600 mg PO Q8H PRN PRN Reason: Pain, Mild (Pain Scale 1-3) Magnesium Hydroxide (Milk Of Magnesia 30 Ml Oral.Susp) 30 ml PO DAILY PRN PRN Reason: Constipation Olanzapine (Olanzapine 10 Mg Tablet) 20 mg PO BEDTIME [facility] Last Admin: 02/04/22 23:02 Dose: 20 mg Documented by: Trazodone HCl (Trazodone Hcl 50 Mg Tablet) 50 mg PO BEDTIME [facility] Last Admin: 02/04/22 23:02 Dose: 50 mg Documented by: Allergies Allergies Allergy/AdvReac Type Severity Reaction Status Date / Time No Known Allergies Allergy Verified 01/18/22 17:46 Assessment & Plan Assessment & Plan (1) Schizoaffective disorder, depressive type: Status: Acute Code(s): F25.1 - Schizoaffective disorder, depressive type Plan HPI: Tomas is a 61 y.o. Male who carries a dx of schizoaffective disorder, depressive type, who presents for his 4th psychiatric hospitalization. [place] [facility] [place] via ambulance called by [place] [employer] due to pt writing a note to police stating that he is in a high level [employer] project. Once at the ED, Tomas complained of headaches, memory loss, hearing loss, and word retrieval issues, which he attributes to high level radio frequency satellites. No substance or alcohol use concerns. HOSPITAL COURSE: 01/19/2022 Patient accepting Risperdal. Would do well with long-acting injectable. Unclear why patient has not had significant treatment over the past number of years. The collateral information from family he is asking we contact his stepfather. His 2 brothers states his no contact with. Patient does not have any children unclear how the patient has been living states he has over million dollars unclear if this is grandiose and delusional 01/20/2022 We would strongly recommend long-acting injectable. Contact family for additional information support unclear what other resources may be available 01/21/22: Increase risperdal to 2 mg BID, as pt has not had response to medication (ris[place]dal started at [facility] and appears psychotic, unable to care for self. Obtain [facility] discharge paperwork. 01/23 Remains delusional and without any insight. However patient said that headache pain is less today which will hopefully Indicates that Risperdal is having some positive affect. Will leave the current dose for now to see If further improvements can be made 01/28 Patient remains psychotic with auditory hallucinations and paranoid delusions -Risperdal 3 mg b.i.d. has not yet seem to reduce symptoms; will consider switching to another antipsychotic 01/30 DC Risperdal START Zyprexa patient does not seem to have symptom reduction on Risperdal 6 mg total daily dose; he also reports he did not notice perphenazine making any difference and travel writer's review of [facility] notes indicate patient had a very similar presentation as he does currently on Risperdal. Patient agrees to switching antipsychotic medication. 01/31 remains delusional and with AH. Tolerating Zyprexa -titrate Zyprexa further. Given patient's age it is preferable to see if 10 mg can eventually reduce symptoms; however the longer patient remains psychotic the harder his psychosis will be to treat. Current literature shows significant evidence that once a medication is at therapeutic dose there is usually a reduction in symptoms when initiating an antipsychotic, within the first couple days. As there has yet to be any effect, it is thus very likely that he will eventually be titrated to at least 15 mg and since he denies any side effects at all will continue to titrate 02/03 remains psychotic with auditory hallucinations and delusions. Agrees with continued titration of Zyprexa 02/04 no change; continue tx; Influenza: resolved DX: Schizoaffective disorder depressed type. (Paranoid delusions +AH + history of intermittent depressive episodes) PLAN: 1. Schizoaffective disorder -Continue Zyprexa 20mg qhs (zyprexa started on 01/30); will give another few days, however if still no effect will likely switch MED TRIals Perphenazine: not effective (tried at [facility]) Risperdal: not effective (tried at [place]) Zyprexa: so far...no effect Otherwise: Q15 min safety checks, CV Monitor response to medications. Monitor for safety in the milieu. Discharge on stabilization. 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 At 1st patient would not verbally talk to staff there are and only communicating via written communication. Patient treated with perphenazine titrated to 20 mg b.i.d. (may be error and meant daily as this is a very high dose). Reportedly patient some mild decrease in paranoid and delusional content and started verbally talking with treatment team, became less isolative and willing to walk the halls on the unit. -psychotic symptoms present for about 8 years That admission was the 3rd psychiatric hospitalization I spent minutes with the patient and/or on the patient floor today, greater than?50% of which was spent counseling/coordinating care. Patient educated on: diagnosis Informed Consent: does not understand Reason for contiued inpatient stay Substantial Risk for: inability to function
[2022-02-05 19:35] VITALS: BP 118/75; PULSE 85
[2022-02-05] MEDS: OLANZapine 10 MG TABLET 20 MG PO (19:59)
[2022-02-05] MEDS: traZODone HCL 50 MG TABLET PO (20:00)
[2022-02-06 06:00] VITALS: BP 114/76; PULSE 68; TEMP 36.4; O2SAT 99
[2022-02-06 08:54] LABS: MANUAL DIFF FLAG NO
[2022-02-06 08:56] LABS: Basophils Percent Auto 0.2 % (0-2); Eosinophils Absolute Auto 0.2 X10*3/uL (0.0-0.4); Hematocrit 36.5 % (42.0-52.0); Hemoglobin 11.7 g/dl (14.0-18.0); Imm Gran Abs Auto 0.05 X10*3/uL (0.00-0.03); Imm Gran Pct Auto 0.6 % (0.0-0.4); Lymphocytes Percent Auto 24.6 % (20-40); Mean Corpuscular HGB Conc 32.1 g/dl (31.0-36.0); Mean Corpuscular Hemoglobin 31.5 pg (27.0-33.0); Mean Corpuscular Volume 98.4 fL (80.0-98.0); Mean Platelet Volume 9.4 fL (9.4-12.4); Monocytes Absolute Auto 0.8 X10*3/uL (0.1-1.2); Monocytes Percent Auto 9.3 % (2-11); Neutrophils Absolute Auto 5.1 x10*3/uL (2.0-8.3); Neutrophils Percent Auto 63.3 % (45-73); Platelet Count 341 X10*3/uL (160-400); Red Blood Count 3.71 X10*6/uL (4.60-5.80); Red Cell Distribution Width 13.2 % (11.0-16.0)
--- NOTE | 2022-02-06 09:00 | ECG_ITS ---
Test Reason : ANTIPYSCH USE Blood Pressure : / mmHG Vent. Rate : 066 BPM Atrial Rate : 066 BPM P-R Int : 168 ms QRS Dur : 090 ms QT Int : 390 ms P-R-T Axes : 074 075 063 degrees QTc Int : 408 ms Normal sinus rhythm Low voltage QRS Borderline ECG No previous ECGs available Referred By: Praveen Lieberman Electronically Signed By:NENO TERRELL MD
[2022-02-06 09:04] LABS: Estimated Average Glucose 111 mg/dL; Hemoglobin A1c % 5.5 %
--- NOTE | 2022-02-06 17:35 | HO.PSYCHPN ---
Subjective Subjective Date of Service: 02/06/22 Reason For Visit: Paranoia Interim History: Patient says that he does not go out of the room much because when he is around people his head starts to hurt, he gets disorganized thoughts and memory loss. Patient says he continues to communicate as usual with project personnel. He says that he remains Confident that the project will stop in the next 24 hours. Respiratory Director discussed with patient his history and asked about school. Patient said he went [employer] school. Respiratory Director tried to ask what he was hoping to do with that Education but he said he did not understand the question. 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 No projects prior to this Mental Status Exam Mental Status Exam Narrative: Pt is alert and oriented; behavior is cooperative, friendly and calm; patient is not in distress; dressed in hospital attire with unkempt hair and marginal hygiene;? mood is described as ok... ? affect a little blunted; eye contact appropriate; Speech is normal rate, volume and prosody and not pressured; no psychomotor agitation/retardation present; thought process is goal directed; Thought content is on delusional interactions with DOD; special, classified project; otherwise pertinent to relevant topics; denies any SI/HI.? Auditory hallucinations present.? Patients insight and judgment are impaired Diagnostics Vital Signs (24Hr): Vital Signs - 24 hr 02/05/22 19:35 02/06/22 06:00 Temperature 97.5 F Pulse Rate 85 68 Blood Pressure 118/75 114/76 Pulse Oximetry 99 BMI result Body Mass Index 17.4 Labs Results: 02/06/22 08:27 01/19/22 07:03 Labs: Laboratory Results - last 48 hr 02/06/22 02/06/22 08:27 08:27 WBC 8.0 RBC 3.71 L Hgb 11.7 L Hct 36.5 L MCV 98.4 H MCH 31.5 MCHC 32.1 RDW 13.2 Plt Count 341 D MPV 9.4 Immature Gran % (Auto) 0.6 H Neut % (Auto) 63.3 Lymph % (Auto) 24.6 [place] % (Auto) 9.3 Eos % (Auto) 2.0 Baso % (Auto) 0.2 Lymph # (Auto) 2.0 [place] # (Auto) 0.8 Eos # (Auto) 0.2 Baso # (Auto) 0.0 Abs Immat Gran (auto) 0.05 H Absolute Neuts (auto) 5.1 Absolute Nucleated RBC 0.000 Nucleated RBC % (auto) 0.0 Estimat Average Glucose 111 Hemoglobin A1c % 5.5 Medications Medications Current Medications Acetaminophen (Acetaminophen 325 Mg Tablet) 650 mg PO Q6H PRN PRN Reason: Headache/Pain Mild Scale (1-3) Last Admin: 02/01/22 19:56 Dose: 650 mg Documented by: Al Hydroxide/Mg Hydroxide (Magnesium Hydrox/Alum Hydrox 30 Ml Oral.Susp) 30 ml PO Q6H PRN PRN Reason: Heartburn/Nausea Guaifenesin (Guaifenesin 100 Mg/5 Ml Liquid) 5 ml PO Q4H PRN PRN Reason: Cough Last Admin: 02/01/22 19:56 Dose: 5 ml Documented by: Hydroxyzine HCl (Hydroxyzine Hcl 25 Mg Tablet) 25 mg PO BEDTIME PRN PRN Reason: Anxiety Ibuprofen (Ibuprofen 600 Mg Tablet) 600 mg PO Q8H PRN PRN Reason: Pain, Mild (Pain Scale 1-3) Magnesium Hydroxide (Milk Of Magnesia 30 Ml Oral.Susp) 30 ml PO DAILY PRN PRN Reason: Constipation Olanzapine (Olanzapine 10 Mg Tablet) 20 mg PO BEDTIME [facility] Last Admin: 02/05/22 19:59 Dose: 20 mg Documented by: Trazodone HCl (Trazodone Hcl 50 Mg Tablet) 50 mg PO BEDTIME [facility] Last Admin: 02/05/22 20:00 Dose: 50 mg Documented by: Allergies Allergies Allergy/AdvReac Type Severity Reaction Status Date / Time No Known Allergies Allergy Verified 01/18/22 17:46 Assessment & Plan Assessment & Plan (1) Schizoaffective disorder, depressive type: Status: Acute Code(s): F25.1 - Schizoaffective disorder, depressive type Plan HPI: Tomas is a 61 y.o. Male who carries a dx of schizoaffective disorder, depressive type, who presents for his 4th psychiatric hospitalization. [place] [facility] [place] via ambulance called by [place] [employer] due to pt writing a note to police stating that he is in a high level [employer] project. Once at the ED, Tomas complained of headaches, memory loss, hearing loss, and word retrieval issues, which he attributes to high level radio frequency satellites. No substance or alcohol use concerns. HOSPITAL COURSE: 01/19/2022 Patient accepting Risperdal. Would do well with long-acting injectable. Unclear why patient has not had significant treatment over the past number of years. The collateral information from family he is asking we contact his stepfather. His 2 brothers states his no contact with. Patient does not have any children unclear how the patient has been living states he has over million dollars unclear if this is grandiose and delusional 01/20/2022 We would strongly recommend long-acting injectable. Contact family for additional information support unclear what other resources may be available 01/21/22: Increase risperdal to 2 mg BID, as pt has not had response to medication (risperdal started at [facility] and appears psychotic, unable to care for self. Obtain [facility] discharge paperwork. 01/23 Remains delusional and without any insight. However patient said that headache pain is less today which will hopefully Indicates that Risperdal is having some positive affect. Will leave the current dose for now to see If further improvements can be made 01/28 Patient remains psychotic with auditory hallucinations and paranoid delusions -Risperdal 3 mg b.i.d. has not yet seem to reduce symptoms; will consider switching to another antipsychotic 01/30 DC Risperdal START Zyprexa patient does not seem to have symptom reduction on Risperdal 6 mg total daily dose; he also reports he did not notice perphenazine making any difference and real estate underwriter's review of [facility] [place] notes indicate patient had a very similar presentation as he does currently on Risperdal. Patient agrees to switching antipsychotic medication. 01/31 remains delusional and with AH. Tolerating Zyprexa -titrate Zyprexa further. Given patient's age it is preferable to see if 10 mg can eventually reduce symptoms; however the longer patient remains psychotic the harder his psychosis will be to treat. Current literature shows significant evidence that once a medication is at therapeutic dose there is usually a reduction in symptoms when initiating an antipsychotic, within the first couple days. As there has yet to be any effect, it is thus very likely that he will eventually be titrated to at least 15 mg and since he denies any side effects at all will continue to titrate 02/03 remains psychotic with auditory hallucinations and delusions. Agrees with continued titration of Zyprexa 02/04 no change; continue tx; Influenza: resolved 02/06 Remains delusional with auditory hallucinations; patient gives history that He had paranoid delusions for the past 12 or 13 years. Agrees to change medications tomorrow if real estate underwriter thinks best DX: Schizoaffective disorder depressed type. (Paranoid delusions +AH + history of intermittent depressive episodes) PLAN: 1. Schizoaffective disorder -Continue Zyprexa 20mg qhs (zyprexa started on 01/30); will give another few days, however if still no effect will likely switch MED TRIals Perphenazine: not effective (tried at [facility] [place]) Ris[place]dal: not effective (tried at [place]) Zyprexa: so far...no effect Otherwise: Q15 min safety checks, CV Monitor response to medications. Monitor for safety in the milieu. Discharge on stabilization. brain MRI with and without contrast (done at [facility] [place] on 01/11/22): Impression: Normal MRI of the IACs Without and with contrast> Recent Psych hx: Respiratory Director reviewed discharge summary from [facility] [place] were patient was admitted on 12/12/2021 Same presentation, reporting he was part of a government to mind control program with associated AH and headaches. At 1st patient would not verbally talk to staff there are and only communicating via written communication. Patient treated with perphenazine titrated to 20 mg b.i.d. (may be error and meant daily as this is a very high dose). Reportedly patient some mild decrease in paranoid and delusional content and started verbally talking with treatment team, became less isolative and willing to walk the halls on the unit. -psychotic symptoms present for about 8 years That admission was the 3rd psychiatric hospitalization I spent minutes with the patient and/or on the patient floor today, greater than?50% of which was spent counseling/coordinating care. Patient educated on: diagnosis Informed Consent: does not understand Reason for contiued inpatient stay Substantial Risk for: inability to function
[2022-02-06 18:40] VITALS: BP 104/67; PULSE 64; TEMP 37.1; O2SAT 96
[2022-02-06] MEDS: traZODone HCL 50 MG TABLET PO (20:38)
[2022-02-06] MEDS: OLANZapine 10 MG TABLET 20 MG PO (20:38)
[2022-02-07 06:00] VITALS: BP 114/70; PULSE 70; RESP 14; TEMP 36.8; O2SAT 98
[2022-02-07 12:59] VITALS: BMI 18.3
--- NOTE | 2022-02-07 13:05 | HO.PSYCHPN ---
Subjective Subjective Date of Service: 02/07/22 Reason For Visit: Paranoia Interim History: Pt says he's disappointed but there is a delay in the project ending. He says he does not like it but there is nothing he can do about it so there is no use getting upset. Patient said he has been receiving communications about this topic. Pole Sander Operator discussed switching medications to clozapine and reviewed risks agranulocytosis and patient agrees to to starting this medication weekly blood draws. Patient said that he remains anxious when he leaves the room and is around other people and that it makes it hard to think. He also agrees to starting a benzodiazepine for this reason. Mental Status Exam Mental Status Exam Narrative: Pt is alert and oriented; behavior is cooperative, friendly and calm; patient is not in distress; dressed in hospital attire with unkempt hair and marginal hygiene;? mood is described as ok... ? affect a little blunted; eye contact appropriate; Speech is normal rate, volume and prosody and not pressured; no psychomotor agitation/retardation present; thought process is goal directed; Thought content is on delusional interactions with Special attack project/DOD; otherwise pertinent to relevant topics; denies any SI/HI.? Auditory hallucinations present.? Patients insight and judgment are impaired Diagnostics Vital Signs (24Hr): Vital Signs - 24 hr 02/06/22 18:40 02/07/22 06:00 Temperature 98.7 F 98.3 F Pulse Rate 64 70 Respiratory Rate 14 Blood Pressure 104/67 114/70 Pulse Oximetry 96 98 BMI result Body Mass Index 18.3 Labs Results: 02/06/22 08:27 01/19/22 07:03 Labs: Laboratory Results - last 48 hr 02/06/22 02/06/22 08:27 08:27 WBC 8.0 RBC 3.71 L Hgb 11.7 L Hct 36.5 L MCV 98.4 H MCH 31.5 MCHC 32.1 RDW 13.2 Plt Count 341 D MPV 9.4 Immature Gran % (Auto) 0.6 H Neut % (Auto) 63.3 Lymph % (Auto) 24.6 [place] % (Auto) 9.3 Eos % (Auto) 2.0 Baso % (Auto) 0.2 Lymph # (Auto) 2.0 [place] # (Auto) 0.8 Eos # (Auto) 0.2 Baso # (Auto) 0.0 Abs Immat Gran (auto) 0.05 H Absolute Neuts (auto) 5.1 Absolute Nucleated RBC 0.000 Nucleated RBC % (auto) 0.0 Estimat Average Glucose 111 Hemoglobin A1c % 5.5 Medications Medications Current Medications Acetaminophen (Acetaminophen 325 Mg Tablet) 650 mg PO Q6H PRN PRN Reason: Headache/Pain Mild Scale (1-3) Last Admin: 02/01/22 19:56 Dose: 650 mg Documented by: Al Hydroxide/Mg Hydroxide (Magnesium Hydrox/Alum Hydrox 30 Ml Oral.Susp) 30 ml PO Q6H PRN PRN Reason: Heartburn/Nausea Guaifenesin (Guaifenesin 100 Mg/5 Ml Liquid) 5 ml PO Q4H PRN PRN Reason: Cough Last Admin: 02/01/22 19:56 Dose: 5 ml Documented by: Hydroxyzine HCl (Hydroxyzine Hcl 25 Mg Tablet) 25 mg PO BEDTIME PRN PRN Reason: Anxiety Ibuprofen (Ibuprofen 600 Mg Tablet) 600 mg PO Q8H PRN PRN Reason: Pain, Mild (Pain Scale 1-3) Magnesium Hydroxide (Milk Of Magnesia 30 Ml Oral.Susp) 30 ml PO DAILY PRN PRN Reason: Constipation Olanzapine (Olanzapine 10 Mg Tablet) 20 mg PO BEDTIME [facility]A Last Admin: 02/06/22 20:38 Dose: 20 mg Documented by: Trazodone HCl (Trazodone Hcl 50 Mg Tablet) 50 mg PO BEDTIME LOLA Last Admin: 02/06/22 20:38 Dose: 50 mg Documented by: Allergies Allergies Allergy/AdvReac Type Severity Reaction Status Date / Time No Known Allergies Allergy Verified 01/18/22 17:46 Assessment & Plan Assessment & Plan (1) Schizoaffective disorder, depressive type: Status: Acute Code(s): F25.1 - Schizoaffective disorder, depressive type Plan HPI: Tomas is a 61 y.o. Male who carries a dx of schizoaffective disorder, depressive type, who presents for his 4th psychiatric hospitalization. He presented to the [facility] [place] on 01/17/22 via ambulance called by [place] [employer] due to pt writing a note to police stating that he is in a high level [employer] project. Once at the ED, Tomas complained of headaches, memory loss, hearing loss, and word retrieval issues, which he attributes to high level radio frequency satellites. No substance or alcohol use concerns. HOSPITAL COURSE: 01/19/2022 Patient accepting Risperdal. Would do well with long-acting injectable. Unclear why patient has not had significant treatment over the past number of years. The collateral information from family he is asking we contact his stepfather. His 2 brothers states his no contact with. Patient does not have any children unclear how the patient has been living states he has over million dollars unclear if this is grandiose and delusional 01/20/2022 We would strongly recommend long-acting injectable. Contact family for additional information support unclear what other resources may be available 01/21/22: Increase risperdal to 2 mg BID, as pt has not had response to medication [place] [facility] and appears psychotic, unable to care for self. Obt[place] [facility] [place]. 01/23 Remains delusional and without any insight. However patient said that headache pain is less today which will hopefully Indicates that Risperdal is having some positive affect. Will leave the current dose for now to see If further improvements can be made 01/28 Patient remains psychotic with auditory hallucinations and paranoid delusions -Risperdal 3 mg b.i.d. has not yet seem to reduce symptoms; will consider switching to another antipsychotic 01/30 DC Risperdal START Zyprexa patient does not seem to have symptom reduction on Risperdal 6 mg total daily dose; he also reports he did not notice perphenazine making any difference and speech writer's review of [facility] notes indicate patient had a very similar presentation as he does currently on Risperdal. Patient agrees to switching antipsychotic medication. 01/31 remains delusional and with AH. Tolerating Zyprexa -titrate Zyprexa further. Given patient's age it is preferable to see if 10 mg can eventually reduce symptoms; however the longer patient remains psychotic the harder his psychosis will be to treat. Current literature shows significant evidence that once a medication is at therapeutic dose there is usually a reduction in symptoms when initiating an antipsychotic, within the first couple days. As there has yet to be any effect, it is thus very likely that he will eventually be titrated to at least 15 mg and since he denies any side effects at all will continue to titrate 02/03 remains psychotic with auditory hallucinations and delusions. Agrees with continued titration of Zyprexa 02/04 no change; continue tx; Influenza: resolved 02/06 Remains delusional with auditory hallucinations; patient gives history that He had paranoid delusions for the past 12 or 13 years. Agrees to change medications tomorrow if speech writer thinks best 02/07 delusions/auditory hallucinations remain patient agrees to switching medications to clozapine, understands risk of agranulocytosis and agrees to weekly ANC blood checks. DX: Schizoaffective disorder depressed type. (Paranoid delusions +AH + history of intermittent depressive episodes) PLAN: 1. Schizoaffective disorder START Clozapine 12.5mg BID ANC on 02/06 5100 Check ANC weekly QTc on 02/06 WNL -DISContinue Zyprexa 20mg qhs (zyprexa started on 01/30); no affect, even at max doses; given that the longer psychotic symptoms remained the hardly become to treat, will discontinue Zyprexa and start clozapine MED TRIals Perphenazine: not effective (tried at [facility]) Risperdal: not effective (tried at [place]) Zyprexa: no effect Otherwise: Q15 min safety checks, CV Monitor response to medications. Monitor for safety in the milieu. Discharge on stabilization. 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 At 1st patient would not verbally talk to staff there are and only communicating via written communication. Patient treated with perphenazine titrated to 20 mg b.i.d. (may be error and meant daily as this is a very high dose). Reportedly patient some mild decrease in paranoid and delusional content and started verbally talking with treatment team, became less isolative and willing to walk the halls on the unit. -psychotic symptoms present for about 8 years That admission was the 3rd psychiatric hospitalization I spent minutes with the patient and/or on the patient floor today, greater than?50% of which was spent counseling/coordinating care. Patient educated on: medication risk/benefits Informed Consent: understands Reason for contiued inpatient stay Substantial Risk for: inability to function
[2022-02-07] MEDS: cloZAPine 25 MG TABLET 12.5 MG PO (13:54)
[2022-02-07 19:09] VITALS: BP 140/92; TEMP 37
[2022-02-07] MEDS: cloZAPine 25 MG TABLET PO (20:17)
[2022-02-07] MEDS: traZODone HCL 50 MG TABLET PO (20:17)
[2022-02-08 06:00] VITALS: BP 114/73; PULSE 85; TEMP 36.4; O2SAT 96
[2022-02-08] MEDS: cloZAPine 25 MG TABLET PO ×2 (08:24→20:00)
[2022-02-08] MEDS: traZODone HCL 50 MG TABLET PO (20:00)
--- NOTE | 2022-02-08 23:32 | HO.PSYCHPN ---
Subjective Subjective Date of Service: 02/08/22 Reason For Visit: Paranoia Interim History: Patient seen and discussed with team. Patient evaluated today and upon interview he reports he is doing alright. Sleep is pretty good. Appetite is good. Says medication is alright, I guess. Still says the [employer] project is ongoing, but he is looking for the end any day now. Feels wiped out today, low energy. Denies anxiety. Depression is a 1/10 (10 being the worst). Says he feels safe here. In the milieu, patient is safe but isolative in behavior. Medication Compliance: Yes Side effects from medications: No Attending Groups: No Review of Systems Acute medical concerns: No Medical Review of Systems: unchanged Mental Status Exam Mental Status Exam Narrative: Pt is alert and oriented; behavior is cooperative, friendly and calm; patient is not in distress; dressed in hospital attire with unkempt hair and marginal hygiene;? mood is described as pretty good, affect a little blunted; eye contact appropriate; Speech is normal rate, volume and prosody and not pressured; no psychomotor agitation/retardation present; thought process is goal directed; Thought content is on delusional interactions with [employer] project/[employer]; otherwise pertinent to relevant topics; denies any SI/HI.? Auditory hallucinations present.? Patients insight and judgment are impaired Diagnostics Vital Signs (24Hr): Vital Signs - 24 hr 02/08/22 06:00 Temperature 97.6 F Pulse Rate 85 Blood Pressure 114/73 Pulse Oximetry 96 BMI result Body Mass Index 18.3 Labs Results: 02/06/22 08:27 01/19/22 07:03 Medications Medications Current Medications Acetaminophen (Acetaminophen 325 Mg Tablet) 650 mg PO Q6H PRN PRN Reason: Headache/Pain Mild Scale (1-3) Last Admin: 02/01/22 19:56 Dose: 650 mg Documented by: Al Hydroxide/Mg Hydroxide (Magnesium Hydrox/Alum Hydrox 30 Ml Oral.Susp) 30 ml PO Q6H PRN PRN Reason: Heartburn/Nausea Clozapine (Clozapine 25 Mg Tablet) 25 mg PO BID [facility] Last Admin: 02/08/22 20:00 Dose: 25 mg Documented by: Guaifenesin (Guaifenesin 100 Mg/5 Ml Liquid) 5 ml PO Q4H PRN PRN Reason: Cough Last Admin: 02/01/22 19:56 Dose: 5 ml Documented by: Hydroxyzine HCl (Hydroxyzine Hcl 25 Mg Tablet) 25 mg PO BEDTIME PRN PRN Reason: Anxiety Ibuprofen (Ibuprofen 600 Mg Tablet) 600 mg PO Q8H PRN PRN Reason: Pain, Mild (Pain Scale 1-3) Magnesium Hydroxide (Milk Of Magnesia 30 Ml Oral.Susp) 30 ml PO DAILY PRN PRN Reason: Constipation Trazodone HCl (Trazodone Hcl 50 Mg Tablet) 50 mg PO BEDTIME LOLA Last Admin: 02/08/22 20:00 Dose: 50 mg Documented by: Allergies Allergies Allergy/AdvReac Type Severity Reaction Status Date / Time No Known Allergies Allergy Verified 01/18/22 17:46 Assessment & Plan Assessment & Plan (1) Schizoaffective disorder, depressive type: Status: Acute Code(s): F25.1 - Schizoaffective disorder, depressive type Plan HPI: Tomas is a 61 y.o. Male who carries a dx of schizoaffective disorder, depressive type, who presents for his 4th psychiatric hospitalization. He presented to the [facility] ED on 01/17/22 via ambulance called by [place] [employer] due to pt writing a note to police stating that he is in a high level [employer] project. Once at the ED, Tomas complained of headaches, memory loss, hearing loss, and word retrieval issues, which he attributes to high level radio frequency satellites. No substance or alcohol use concerns. HOSPITAL COURSE: 01/19/2022 Patient accepting Risperdal. Would do well with long-acting injectable. Unclear why patient has not had significant treatment over the past number of years. The collateral information from family he is asking we contact his stepfather. His 2 brothers states his no contact with. Patient does not have any children unclear how the patient has been living states he has over million dollars unclear if this is grandiose and delusional 01/20/2022 We would strongly recommend long-acting injectable. Contact family for additional information support unclear what other resources may be available 01/21/22: Increase risperdal to 2 mg BID, as pt has not had response to medication [place] [facility] and appears psychotic, unable to care for self. Obtain [facility] [place]. 01/23 Remains delusional and without any insight. However patient said that headache pain is less today which will hopefully Indicates that Risperdal is having some positive affect. Will leave the current dose for now to see If further improvements can be made 01/28 Patient remains psychotic with auditory hallucinations and paranoid delusions -Risperdal 3 mg b.i.d. has not yet seem to reduce symptoms; will consider switching to another antipsychotic 01/30 DC Risperdal START Zyprexa patient does not seem to have symptom reduction on Risperdal 6 mg total daily dose; he also reports he did not notice perphenazine making any difference and process description writer's review of [facility] notes indicate patient had a very similar presentation as he does currently on Risperdal. Patient agrees to switching antipsychotic medication. 01/31 remains delusional and with AH. Tolerating Zyprexa -titrate Zyprexa further. Given patient's age it is preferable to see if 10 mg can eventually reduce symptoms; however the longer patient remains psychotic the harder his psychosis will be to treat. Current literature shows significant evidence that once a medication is at therapeutic dose there is usually a reduction in symptoms when initiating an antipsychotic, within the first couple days. As there has yet to be any effect, it is thus very likely that he will eventually be titrated to at least 15 mg and since he denies any side effects at all will continue to titrate 02/03 remains psychotic with auditory hallucinations and delusions. Agrees with continued titration of Zyprexa 02/04 no change; continue tx; Influenza: resolved 02/06 Remains delusional with auditory hallucinations; patient gives history that He had paranoid delusions for the past 12 or 13 years. Agrees to change medications tomorrow if process description writer thinks best 02/07 delusions/auditory hallucinations remain patient agrees to switching medications to clozapine, understands risk of agranulocytosis and agrees to weekly ANC blood checks. 02/08 No change in current treatment plan, denies SE on clozapine DX: Schizoaffective disorder depressed type. (Paranoid delusions +AH + history of intermittent depressive episodes) PLAN: 1. Schizoaffective disorder START Clozapine 12.5mg BID ANC on 02/06 5100 Check ANC weekly QTc on 02/06 WNL -DISContinue Zyprexa 20mg qhs (zyprexa started on 01/30); no affect, even at max doses; given that the longer psychotic symptoms remained the hardly become to treat, will discontinue Zyprexa and start clozapine MED TRIals Perphenazine: not effective (tried at [facility]) Risperdal: not effective (tried at [facility]) Zyprexa: no effect Otherwise: Q15 min safety checks, CV Monitor response to medications. Monitor for safety in the milieu. Discharge on stabilization. brain MRI with and without contrast (done at [facility] on 01/11/22): Impression: Normal MRI of the IACs Without and with contrast> Recent Psych hx: [employer] reviewed discharge summary from [facility] were patient was admitted on 12/12/2021 Same presentation, reporting he was part of a government to mind control program with associated AH and headaches. At 1st patient would not verbally talk to staff there are and only communicating via written communication. Patient treated with perphenazine titrated to 20 mg b.i.d. (may be error and meant daily as this is a very high dose). Reportedly patient some mild decrease in paranoid and delusional content and started verbally talking with treatment team, became less isolative and willing to walk the halls on the unit. -psychotic symptoms present for about 8 years That admission was the 3rd psychiatric hospitalization I spent minutes with the patient and/or on the patient floor today, greater than?50% of which was spent counseling/coordinating care. Patient educated on: medication risk/benefits Reason for contiued inpatient stay Substantial Risk for: inability to function, rapid decompensation and med/psych decompensation
[2022-02-09 06:00] VITALS: BP 112/74; PULSE 76; RESP 18; TEMP 36.7; O2SAT 98
[2022-02-09] MEDS: cloZAPine 25 MG TABLET PO ×2 (08:08→22:06)
--- NOTE | 2022-02-09 08:35 | P.PNPSI_ITS ---
Subjective Subjective Date of Service: 02/09/22 Reason For Visit: Paranoia Subjective Notes: Conditional Voluntary Healthcare Proxy: No Guardianship: No Medical Problems Affecting Mental Status: No Interim History: Patient was seen and discussed in rounds today. Records and plans were review ed. He has been feeling less depressed and anxious. No SI. Some paranoid ideations and delusions persisting. Eating and sleeping adequately. Mostly isolative. Not attending any groups. No complaints or side effects. No changes were implemented today Medication Compliance: Yes Side effects from medications: No Attending Groups: No Review of Systems Acute medical concerns: No Review of Systems Review of Systems Except for HPI Yes all other systems are reviewed and are negative Mental Status Exam Mental Status Exam Narrative: In today's visit he is alert, oriented and pleasant. Normal speech. Little eye contact. Affect is contained in constricted. No auditory or visual hallucinations. Paranoid ideations and delusions persisting. No SI. No dangerous behaviors. Cognitively he has slow thought processes. Judgment is intact Diagnostics Vital Signs (24Hr): Vital Signs - 24 hr 02/09/22 06:00 Temperature 98.1 F Pulse Rate 76 Respiratory Rate 18 Blood Pressure 112/74 Pulse Oximetry 98 BMI result Body Mass Index 18.3 Labs Results: 02/06/22 08:27 01/19/22 07:03 Medications Medications Current Medications Acetaminophen (Acetaminophen 325 Mg Tablet) 650 mg PO Q6H PRN PRN Reason: Headache/Pain Mild Scale (1-3) Last Admin: 02/01/22 19:56 Dose: 650 mg Documented by: Al Hydroxide/Mg Hydroxide (Magnesium Hydrox/Alum Hydrox 30 Ml Oral.Susp) 30 ml PO Q6H PRN PRN Reason: Heartburn/Nausea Clozapine (Clozapine 25 Mg Tablet) 25 mg PO BID [facility] Last Admin: 02/09/22 08:08 Dose: 25 mg Documented by: Guaifenesin (Guaifenesin 100 Mg/5 Ml Liquid) 5 ml PO Q4H PRN PRN Reason: Cough Last Admin: 02/01/22 19:56 Dose: 5 ml Documented by: Hydroxyzine HCl (Hydroxyzine Hcl 25 Mg Tablet) 25 mg PO BEDTIME PRN PRN Reason: Anxiety Ibuprofen (Ibuprofen 600 Mg Tablet) 600 mg PO Q8H PRN PRN Reason: Pain, Mild (Pain Scale 1-3) Magnesium Hydroxide (Milk Of Magnesia 30 Ml Oral.Susp) 30 ml PO DAILY PRN PRN Reason: Constipation Trazodone HCl (Trazodone Hcl 50 Mg Tablet) 50 mg PO BEDTIME LOLA Last Admin: 02/08/22 20:00 Dose: 50 mg Documented by: Allergies Allergies Allergy/AdvReac Type Severity Reaction Status Date / Time No Known Allergies Allergy Verified 01/18/22 17:46 Assessment & Plan Assessment & Plan (1) Schizoaffective disorder, depressive type: Status: Acute Code(s): F25.1 - Schizoaffective disorder, depressive type Plan HPI: Tomas is a 61 y.o. Male who carries a dx of schizoaffective disorder, depressive type, who presents for his 4th psychiatric hospitalization. He presented to the [facility] ED on 01/17/22 via ambulance called by [place] [employer] due to pt writing a note to police stating that he is in a high level [employer] project. Once at the ED, Tomas complained of headaches, memory loss, hearing loss, and word retrieval issues, which he attributes to high level radio frequency satellites. No substance or alcohol use concerns. HOSPITAL COURSE: 01/19/2022 Patient accepting Risperdal. Would do well with long-acting injectable. Unc lear why patient has not had significant treatment over the past number of years. The collateral information from family he is asking we contact his stepfather. His 2 brothers states his no contact with. Patient does not have any children unclear how the patient has been living states he has over million dollars unclear if this is grandiose and delusional 01/20/2022 We would strongly recommend long-acting injectable. Contact family for additional information support unclear what other resources may be available 01/21/22: Increase risperdal to 2 mg BID, as pt has not had response to medicatio n ([place] [facility] and appears psychotic, unable to care for self. Obtain [facility] [place]. 01/23 Remains delusional and without any insight. However patient said that headache pain is less today which will hopefully Indicates that Risperdal is having some positive affect. Will leave the current dose for now to see If further improvements can be made 01/28 Patient remains psychotic with auditory hallucinations and paranoid delusions -Risperdal 3 mg b.i.d. has not yet seem to reduce symptoms; will consider switching to another antipsychotic 01/30 DC Risperdal START Zyprexa patient does not seem to have symptom reduction on Risperdal 6 mg total daily dose; he also reports he did not notice perphenazine making any difference and newswriter's review of [facility] notes indicate patient had a very similar presentation as he does currently on Risperdal. Patient agrees to switching an tipsychotic medication. 01/31 remains delusional and with AH. Tolerating Zyprexa -titrate Zyprexa further. Given patient's age it is preferable to see if 10 mg can eventually reduce symptoms; however the longer patient remains psychotic the harder his psychosis will be to treat. Current literature shows significant evidence that once a medication is at therapeutic dose there is usually a reduction in symptoms when initiating an antipsychotic, within the first couple days. As there has yet to be any effect, it is thus very likely that he will eventually be titrated to at least 15 mg and since he denies any side effects at all will continue to titrate 02/03 remains psychotic with auditory hallucinations and delusions. Agrees with continued titration of Zyprexa 02/04 no change; continue tx; Influenza: resolved 02/06 Remains delusional with auditory hallucinations; patient gives history that He had paranoid delusions for the past 12 or 13 years. Agrees to change medications tomorrow if newswriter thinks best 02/07 delusions/auditory hallucinations remain patient agrees to switching medications to clozapine, understands risk of agranulocytosis and agrees to weekly ANC blood checks. 02/08 No change in current treatment plan, denies SE on clozapine DX: Schizoaffective disorder depressed type. (Paranoid delusions +AH + history of intermittent depressive episodes) PLAN: 1. Schizoaffective disorder START Clozapine 12.5mg BID ANC on 02/06 5100 Check ANC weekly QTc on 02/06 WNL -DISContinue Zyprexa 20mg qhs (zyprexa started on 01/30); no affect, even at max doses; given that the longer psychotic symptoms remained the hardly become to treat, will discontinue Zyprexa and start clozapine MED TRIals Perphenazine: not effective (tried at [facility]) Risperdal: not effective (tried at [facility]) Zyprexa: no effect Otherwise: Q15 min safety checks, CV Monitor response to medications. Monitor for safety in the milieu. Discharge on stabilization. brain MRI with and without contrast (done at [facility] on 01/11/22): Impression: Normal MRI of the IACs Without and with contrast> Recent Psych hx: [employer] reviewed discharge summary from [facility] were patient was admitted on 12/12/2021 Same presentation, reporting he was part of a government to mind control program with associated AH and headaches. At 1st patient would not verbally talk to staff there are and only communicating via written communication. Patient treated with perphenazine titrated to 20 mg b.i.d. (may be error and baljit nt daily as this is a very high dose). Reportedly patient some mild decrease in paranoid and delusional content and started verbally talking with treatment team, became less isolative and willing to walk the halls on the unit. -psychotic symptoms present for about 8 years That admission was the 3rd psychiatric hospitalization 02/09/2022: Continue current regimen and plans I spent minutes with the patient and/or on the patient floor today, greater than?50% of which was spent counseling/coordinating care. Reason for contiued inpatient stay Substantial Risk for: med/psych decompensation
[2022-02-09 16:30] VITALS: BP 127/75; PULSE 80; TEMP 36
[2022-02-09] MEDS: traZODone HCL 50 MG TABLET PO (22:06)
[2022-02-10 06:00] VITALS: BP 123/77; PULSE 78; RESP 16; TEMP 36.8; O2SAT 98
[2022-02-10] MEDS: cloZAPine 25 MG TABLET PO ×2 (07:42→20:52)
--- NOTE | 2022-02-10 09:22 | HO.PSYCHPN ---
Subjective Subjective Date of Service: 02/10/22 Reason For Visit: Paranoia Subjective Notes: Conditional Voluntary Healthcare Proxy: No Guardianship: No Medical Problems Affecting Mental Status: No Interim History: Patient was seen and discussed in rounds today. Records and plans were reviewed. He continues to be isolative, delusional and somewhat paranoid. He states he is feeling better. He has been med compliant. No complaints or side effects. Eating and sleeping adequately. No changes were made today Medication Compliance: Yes Side effects from medications: No Review of Systems Review of Systems Except for HPI Yes all other systems are reviewed and are negative Mental Status Exam Mental Status Exam Narrative: In today's visit he is alert, oriented and pleasant. Normal speech. Little eye contact. Affect is contained in constricted. No auditory or visual hallucinations. Paranoid ideations and delusions persisting. No SI. No dangerous behaviors. Cognitively he has slow thought processes. Judgment is intact Diagnostics Vital Signs (24Hr): Vital Signs - 24 hr 02/09/22 16:30 02/10/22 06:00 Temperature 96.8 F 98.2 F Pulse Rate 80 78 Respiratory Rate 16 Blood Pressure 127/75 123/77 Pulse Oximetry 98 BMI result Body Mass Index 18.3 Labs Results: 02/06/22 08:27 01/19/22 07:03 Medications Medications Current Medications Acetaminophen (Acetaminophen 325 Mg Tablet) 650 mg PO Q6H PRN PRN Reason: Headache/Pain Mild Scale (1-3) Last Admin: 02/01/22 19:56 Dose: 650 mg Documented by: Al Hydroxide/Mg Hydroxide (Magnesium Hydrox/Alum Hydrox 30 Ml Oral.Susp) 30 ml PO Q6H PRN PRN Reason: Heartburn/Nausea Clozapine (Clozapine 25 Mg Tablet) 25 mg PO BID [facility] Last Admin: 02/10/22 07:42 Dose: 25 mg Documented by: Guaifenesin (Guaifenesin 100 Mg/5 Ml Liquid) 5 ml PO Q4H PRN PRN Reason: Cough Last Admin: 02/01/22 19:56 Dose: 5 ml Documented by: Hydroxyzine HCl (Hydroxyzine Hcl 25 Mg Tablet) 25 mg PO BEDTIME PRN PRN Reason: Anxiety Ibuprofen (Ibuprofen 600 Mg Tablet) 600 mg PO Q8H PRN PRN Reason: Pain, Mild (Pain Scale 1-3) Magnesium Hydroxide (Milk Of Magnesia 30 Ml Oral.Susp) 30 ml PO DAILY PRN PRN Reason: Constipation Trazodone HCl (Trazodone Hcl 50 Mg Tablet) 50 mg PO BEDTIME LOLA Last Admin: 02/09/22 22:06 Dose: 50 mg Documented by: Allergies Allergies Allergy/AdvReac Type Severity Reaction Status Date / Time No Known Allergies Allergy Verified 01/18/22 17:46 Assessment & Plan Assessment & Plan (1) Schizoaffective disorder, depressive type: Status: Acute Code(s): F25.1 - Schizoaffective disorder, depressive type Plan HPI: Tomas is a 61 y.o. Male who carries a dx of schizoaffective disorder, depressive type, who presents for his 4th psychiatric hospitalization. [place] [facility] [place] via ambulance called by [place] [employer] due to pt writing a note to police stating that he is in a high level [employer] project. Once at the ED, Tomas complained of headaches, memory loss, hearing loss, and word retrieval issues, which he attributes to high level radio frequency satellites. No substance or alcohol use concerns. HOSPITAL COURSE: 01/19/2022 Patient accepting Risperdal. Would do well with long-acting injectable. Unclear why patient has not had significant treatment over the past number of years. The collateral information from family he is asking we contact his stepfather. His 2 brothers states his no contact with. Patient does not have any children unclear how the patient has been living states he has over million dollars unclear if this is grandiose and delusional 01/20/2022 We would strongly recommend long-acting injectable. Contact family for additional information support unclear what other resources may be available 01/21/22: Increase risperdal to 2 mg BID, as pt has not had response to medication (risperdal started at [facility]) and appears psychotic, unable to care for self. Obtain [facility] discharge paperwork. 01/23 Remains delusional and without any insight. However patient said that headache pain is less today which will hopefully Indicates that Risperdal is having some positive affect. Will leave the current dose for now to see If further improvements can be made 01/28 Patient remains psychotic with auditory hallucinations and paranoid delusions -Risperdal 3 mg b.i.d. has not yet seem to reduce symptoms; will consider switching to another antipsychotic 01/30 DC Risperdal START Zyprexa patient does not seem to have symptom reduction on Risperdal 6 mg total daily dose; he also reports he did not notice perphenazine making any difference and policy writer's review of [facility] notes indicate patient had a very similar presentation as he does currently on Risperdal. Patient agrees to switching antipsychotic medication. 01/31 remains delusional and with AH. Tolerating Zyprexa -titrate Zyprexa further. Given patient's age it is preferable to see if 10 mg can eventually reduce symptoms; however the longer patient remains psychotic the harder his psychosis will be to treat. Current literature shows significant evidence that once a medication is at therapeutic dose there is usually a reduction in symptoms when initiating an antipsychotic, within the first couple days. As there has yet to be any effect, it is thus very likely that he will eventually be titrated to at least 15 mg and since he denies any side effects at all will continue to titrate 02/03 remains psychotic with auditory hallucinations and delusions. Agrees with continued titration of Zyprexa 02/04 no change; continue tx; Influenza: resolved 02/06 Remains delusional with auditory hallucinations; patient gives history that He had paranoid delusions for the past 12 or 13 years. Agrees to change medications tomorrow if policy writer thinks best 02/07 delusions/auditory hallucinations remain patient agrees to switching medications to clozapine, understands risk of agranulocytosis and agrees to weekly ANC blood checks. 02/08 No change in current treatment plan, denies SE on clozapine DX: Schizoaffective disorder depressed type. (Paranoid delusions +AH + history of intermittent depressive episodes) PLAN: 1. Schizoaffective disorder START Clozapine 12.5mg BID ANC on 02/06 5100 Check ANC weekly QTc on 02/06 WNL -DISContinue Zyprexa 20mg qhs (zyprexa started on 01/30); no affect, even at max doses; given that the longer psychotic symptoms remained the hardly become to treat, will discontinue Zyprexa and start clozapine MED TRIals Perphenazine: not effective (tried at [facility]) Risperdal: not effective (tried at [facility]) Zyprexa: no effect Otherwise: Q15 min safety checks, CV Monitor response to medications. Monitor for safety in the milieu. Discharge on stabilization. 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 At 1st patient would not verbally talk to staff there are and only communicating via written communication. Patient treated with perphenazine titrated to 20 mg b.i.d. (may be error and meant daily as this is a very high dose). Reportedly patient some mild decrease in paranoid and delusional content and started verbally talking with treatment team, became less isolative and willing to walk the halls on the unit. -psychotic symptoms present for about 8 years That admission was the 3rd psychiatric hospitalization 02/09/2022: Continue current regimen and plans 02/10/2022: Continue current plans and regimen I spent minutes with the patient and/or on the patient floor today, greater than?50% of which was spent counseling/coordinating care. Reason for contiued inpatient stay Substantial Risk for: med/psych decompensation
[2022-02-10 16:30] VITALS: BP 105/70; PULSE 80; TEMP 36.9
[2022-02-10] MEDS: traZODone HCL 50 MG TABLET PO (20:52)
[2022-02-11 06:00] VITALS: BP 109/72; PULSE 71; RESP 16; TEMP 36.6; O2SAT 96
[2022-02-11] MEDS: cloZAPine 25 MG TABLET PO (08:47)
--- NOTE | 2022-02-11 10:44 | HO.PSYCHPN ---
Subjective Subjective Date of Service: 02/11/22 Reason For Visit: Paranoia Interim History: pt reports that communications/AH remain at the same frequency however, he says they are lower in volume which is a new report; pt says he hopes this means that the project will end soon. He thinks maybe his anxiety is a little lower too. Pt says he makes sure he exercises in the room; check writer salesperson discussed getting out into the [place] and he said tomorrow he'll start venturing out and walking the halls. Denies med side-effects and agrees to continued titration. Mental Status Exam Mental Status Exam Narrative: Pt is alert and oriented; behavior is cooperative, friendly and calm; patient is not in distress; dressed in hospital attire with unkempt hair and marginal hygiene;? mood is described as ok... ? affect a little blunted but a little less so; eye contact appropriate; Speech is normal rate, volume and prosody and not pressured; no psychomotor agitation/retardation present; thought process is goal directed; Thought content is on delusional interactions with [employer] project/[employer]; otherwise pertinent to relevant topics; denies any SI/HI.? Auditory hallucinations present.? Patients insight and judgment are impaired Diagnostics Vital Signs (24Hr): Vital Signs - 24 hr 02/10/22 16:30 02/11/22 06:00 Temperature 98.4 F 97.8 F Pulse Rate 80 71 Respiratory Rate 16 Blood Pressure 105/70 109/72 Pulse Oximetry 96 BMI result Body Mass Index 18.3 Labs Results: 02/06/22 08:27 01/19/22 07:03 Medications Medications Current Medications Acetaminophen (Acetaminophen 325 Mg Tablet) 650 mg PO Q6H PRN PRN Reason: Headache/Pain Mild Scale (1-3) Last Admin: 02/01/22 19:56 Dose: 650 mg Documented by: Al Hydroxide/Mg Hydroxide (Magnesium Hydrox/Alum Hydrox 30 Ml Oral.Susp) 30 ml PO Q6H PRN PRN Reason: Heartburn/Nausea Clozapine (Clozapine 25 Mg Tablet) 25 mg PO BID [facility] Last Admin: 02/11/22 08:47 Dose: 25 mg Documented by: Guaifenesin (Guaifenesin 100 Mg/5 Ml Liquid) 5 ml PO Q4H PRN PRN Reason: Cough Last Admin: 02/01/22 19:56 Dose: 5 ml Documented by: Hydroxyzine HCl (Hydroxyzine Hcl 25 Mg Tablet) 25 mg PO BEDTIME PRN PRN Reason: Anxiety Ibuprofen (Ibuprofen 600 Mg Tablet) 600 mg PO Q8H PRN PRN Reason: Pain, Mild (Pain Scale 1-3) Magnesium Hydroxide (Milk Of Magnesia 30 Ml Oral.Susp) 30 ml PO DAILY PRN PRN Reason: Constipation Trazodone HCl (Trazodone Hcl 50 Mg Tablet) 50 mg PO BEDTIME LOLA Last Admin: 02/10/22 20:52 Dose: 50 mg Documented by: Allergies Allergies Allergy/AdvReac Type Severity Reaction Status Date / Time No Known Allergies Allergy Verified 01/18/22 17:46 Assessment & Plan Assessment & Plan (1) Schizoaffective disorder, depressive type: Status: Acute Code(s): F25.1 - Schizoaffective disorder, depressive type Plan HPI: Tomas is a 61 y.o. Male who carries a dx of schizoaffective disorder, depressive type, who presents for his 4th psychiatric hospitalization. He presented to the [facility] ED on 01/17/22 via ambulance called by [place] Police due to pt writing a note to police stating that he is in a high level [employer] project. Once at the ED, Tomas complained of headaches, memory loss, hearing loss, and word retrieval issues, which he attributes to high level radio frequency satellites. No substance or alcohol use concerns. HOSPITAL COURSE: 01/19/2022 Patient accepting Risperdal. Would do well with long-acting injectable. Unclear why patient has not had significant treatment over the past number of years. The collateral information from family he is asking we contact his stepfather. His 2 brothers states his no contact with. Patient does not have any children unclear how the patient has been living states he has over million dollars unclear if this is grandiose and delusional 01/20/2022 We would strongly recommend long-acting injectable. Contact family for additional information support unclear what other resources may be available 01/21/22: Increase risperdal to 2 mg BID, as pt has not had response to medication (risperdal started at [facility]) and appears psychotic, unable to care for self. Obtain [facility] discharge paperwork. 01/23 Remains delusional and without any insight. However patient said that headache pain is less today which will hopefully Indicates that Risperdal is having some positive affect. Will leave the current dose for now to see If further improvements can be made 01/28 Patient remains psychotic with auditory hallucinations and paranoid delusions -Risperdal 3 mg b.i.d. has not yet seem to reduce symptoms; will consider switching to another antipsychotic 01/30 DC Risperdal START Zyprexa patient does not seem to have symptom reduction on Risperdal 6 mg total daily dose; he also reports he did not notice perphenazine making any difference and check writer salesperson's review of [facility] notes indicate patient had a very similar presentation as he does currently on Risperdal. Patient agrees to switching antipsychotic medication. 01/31 remains delusional and with AH. Tolerating Zyprexa -titrate Zyprexa further. Given patient's age it is preferable to see if 10 mg can eventually reduce symptoms; however the longer patient remains psychotic the harder his psychosis will be to treat. Current literature shows significant evidence that once a medication is at therapeutic dose there is usually a reduction in symptoms when initiating an antipsychotic, within the first couple days. As there has yet to be any effect, it is thus very likely that he will eventually be titrated to at least 15 mg and since he denies any side effects at all will continue to titrate 02/03 remains psychotic with auditory hallucinations and delusions. Agrees with continued titration of Zyprexa 02/04 no change; continue tx; Influenza: resolved 02/06 Remains delusional with auditory hallucinations; patient gives history that He had paranoid delusions for the past 12 or 13 years. Agrees to change medications tomorrow if check writer salesperson thinks best 02/07 delusions/auditory hallucinations remain patient agrees to switching medications to clozapine, understands risk of agranulocytosis and agrees to weekly ANC blood checks. 02/08 No change in current treatment plan, denies SE on clozapine 02/11 perhaps some decrease in volume of AH, though they remain. Continue titration DX: Schizoaffective disorder depressed type. (Paranoid delusions +AH + history of intermittent depressive episodes) PLAN: 1. Schizoaffective disorder Clozapine 25mg daily INCREASE to Clozapine 50mg qhs ANC on 02/06 5100 Check ANC weekly QTc on 02/06 WNL -DISContinue Zyprexa 20mg qhs (zyprexa started on 5/4); no affect, even at max doses; given that the longer psychotic symptoms remained the hardly become to treat, will discontinue Zyprexa and start clozapine MED TRIals Perphenazine: not effective (tried at [facility]) Risperdal: not effective (tried at [place]) Zyprexa: no effect Otherwise: Q15 min safety checks, CV Monitor response to medications. Monitor for safety in the milieu. Discharge on stabilization. 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 At 1st patient would not verbally talk to staff there are and only communicating via written communication. Patient treated with perphenazine titrated to 20 mg b.i.d. (may be error and meant daily as this is a very high dose). Reportedly patient some mild decrease in paranoid and delusional content and started verbally talking with treatment team, became less isolative and willing to walk the halls on the unit. -psychotic symptoms present for about 8 years That admission was the 3rd psychiatric hospitalization I spent minutes with the patient and/or on the patient floor today, greater than?50% of which was spent counseling/coordinating care. Patient educated on: medication risk/benefits Informed Consent: understands Reason for contiued inpatient stay Substantial Risk for: inability to function
[2022-02-11 16:30] VITALS: BP 106/69; PULSE 80; TEMP 36.9; O2SAT 96
[2022-02-11] MEDS: traZODone HCL 50 MG TABLET PO (21:18)
[2022-02-11] MEDS: cloZAPine 25 MG TABLET 50 MG PO (21:18)
[2022-02-12 06:00] VITALS: BP 110/72; PULSE 68; RESP 16; TEMP 36.7; O2SAT 97
[2022-02-12] MEDS: cloZAPine 25 MG TABLET PO (08:16)
--- NOTE | 2022-02-12 16:40 | HO.PSYCHPN ---
Subjective Subjective Date of Service: 02/12/22 Reason For Visit: Paranoia Interim History: Patient reports that he is the same as yesterday however he was dressed in regular clothes today which was new. He said the voices remain at a lower volume about which he was very pleased. He said that sometimes it was a little hard to hear. He also says he has had less memory loss recently and had pain was lower. He still remains in his room and said he is not quite ready to go well and walked the halls yet, but says he will strongly consider it. Mental Status Exam Mental Status Exam Narrative: Pt is alert and oriented; behavior is cooperative, friendly and calm; patient is not in distress; dressed in hospital attire with unkempt hair and marginal hygiene;? mood is described as the same... ? affect a little blunted but a little less so; eye contact appropriate; Speech is normal rate, volume and prosody and not pressured; no psychomotor agitation/retardation present; thought process is goal directed; Thought content is on delusional interactions with Special attack project/DOD; otherwise pertinent to relevant topics; denies any SI/HI.? Auditory hallucinations present.? Patients insight and judgment are impaired Diagnostics Vital Signs (24Hr): Vital Signs - 24 hr 02/12/22 06:00 Temperature 98.0 F Pulse Rate 68 Respiratory Rate 16 Blood Pressure 110/72 Pulse Oximetry 97 BMI result Body Mass Index 18.3 Labs Results: 02/06/22 08:27 01/19/22 07:03 Medications Medications Current Medications Acetaminophen (Acetaminophen 325 Mg Tablet) 650 mg PO Q6H PRN PRN Reason: Headache/Pain Mild Scale (1-3) Last Admin: 02/01/22 19:56 Dose: 650 mg Documented by: Al Hydroxide/Mg Hydroxide (Magnesium Hydrox/Alum Hydrox 30 Ml Oral.Susp) 30 ml PO Q6H PRN PRN Reason: Heartburn/Nausea Clozapine (Clozapine 25 Mg Tablet) 25 mg PO DAILY LOLA Last Admin: 02/12/22 08:16 Dose: 25 mg Documented by: Clozapine (Clozapine 25 Mg Tablet) 50 mg PO BEDTIME LOLA Last Admin: 02/11/22 21:18 Dose: 50 mg Documented by: Guaifenesin (Guaifenesin 100 Mg/5 Ml Liquid) 5 ml PO Q4H PRN PRN Reason: Cough Last Admin: 02/01/22 19:56 Dose: 5 ml Documented by: Hydroxyzine HCl (Hydroxyzine Hcl 25 Mg Tablet) 25 mg PO BEDTIME PRN PRN Reason: Anxiety Ibuprofen (Ibuprofen 600 Mg Tablet) 600 mg PO Q8H PRN PRN Reason: Pain, Mild (Pain Scale 1-3) Magnesium Hydroxide (Milk Of Magnesia 30 Ml Oral.Susp) 30 ml PO DAILY PRN PRN Reason: Constipation Trazodone HCl (Trazodone Hcl 50 Mg Tablet) 50 mg PO BEDTIME LOLA Last Admin: 02/11/22 21:18 Dose: 50 mg Documented by: Allergies Allergies Allergy/AdvReac Type Severity Reaction Status Date / Time No Known Allergies Allergy Verified 01/18/22 17:46 Assessment & Plan Assessment & Plan (1) Schizoaffective disorder, depressive type: Status: Acute Code(s): F25.1 - Schizoaffective disorder, depressive type Plan HPI: Tomas is a 61 y.o. Male who carries a dx of schizoaffective disorder, depressive type, who presents for his 4th psychiatric hospitalization. He [place] [facility] [place] via ambulance called by [place] [employer] due to pt writing a note to police stating that he is in a high level [employer] project. Once at the ED, Tomas complained of headaches, memory loss, hearing loss, and word retrieval issues, which he attributes to high level radio frequency satellites. No substance or alcohol use concerns. HOSPITAL COURSE: 01/19/2022 Patient accepting Risperdal. Would do well with long-acting injectable. Unclear why patient has not had significant treatment over the past number of years. The collateral information from family he is asking we contact his stepfather. His 2 brothers states his no contact with. Patient does not have any children unclear how the patient has been living states he has over million dollars unclear if this is grandiose and delusional 01/20/2022 We would strongly recommend long-acting injectable. Contact family for additional information support unclear what other resources may be available 01/21/22: Increase risperdal to 2 mg BID, as pt has not had response to medication (risperdal started at [facility]) and appears psychotic, unable to care for self. Obtain [facility] discharge paperwork. 01/23 Remains delusional and without any insight. However patient said that headache pain is less today which will hopefully Indicates that Risperdal is having some positive affect. Will leave the current dose for now to see If further improvements can be made 01/28 Patient remains psychotic with auditory hallucinations and paranoid delusions -Risperdal 3 mg b.i.d. has not yet seem to reduce symptoms; will consider switching to another antipsychotic 01/30 DC Risperdal START Zyprexa patient does not seem to have symptom reduction on Risperdal 6 mg total daily dose; he also reports he did not notice perphenazine making any difference and typewriter assembler's review of [facility] notes indicate patient had a very similar presentation as he does currently on Risperdal. Patient agrees to switching antipsychotic medication. 01/31 remains delusional and with AH. Tolerating Zyprexa -titrate Zyprexa further. Given patient's age it is preferable to see if 10 mg can eventually reduce symptoms; however the longer patient remains psychotic the harder his psychosis will be to treat. Current literature shows significant evidence that once a medication is at therapeutic dose there is usually a reduction in symptoms when initiating an antipsychotic, within the first couple days. As there has yet to be any effect, it is thus very likely that he will eventually be titrated to at least 15 mg and since he denies any side effects at all will continue to titrate 02/03 remains psychotic with auditory hallucinations and delusions. Agrees with continued titration of Zyprexa 02/04 no change; continue tx; Influenza: resolved 02/06 Remains delusional with auditory hallucinations; patient gives history that He had paranoid delusions for the past 12 or 13 years. Agrees to change medications tomorrow if typewriter assembler thinks best 02/07 delusions/auditory hallucinations remain patient agrees to switching medications to clozapine, understands risk of agranulocytosis and agrees to weekly ANC blood checks. 02/08 No change in current treatment plan, denies SE on clozapine 02/11 perhaps some decrease in volume of AH, though they remain. Continue titration DX: Schizoaffective disorder depressed type. (Paranoid delusions +AH + history of intermittent depressive episodes) PLAN: 1. Schizoaffective disorder Clozapine 25mg daily INCREASE to Clozapine 75mg qhs ANC on 02/06 5100 Check ANC weekly QTc on 02/06 WNL -DISContinue Zyprexa 20mg qhs (zyprexa started on 01/30); no affect, even at max doses; given that the longer psychotic symptoms remained the hardly become to treat, will discontinue Zyprexa and start clozapine MED TRIals Perphenazine: not effective (tried at [facility]) Risperdal: not effective (tried at [place]) Zyprexa: no effect Otherwise: Q15 min safety checks, CV Monitor response to medications. Monitor for safety in the milieu. Discharge on stabilization. 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 At 1st patient would not verbally talk to staff there are and only communicating via written communication. Patient treated with perphenazine titrated to 20 mg b.i.d. (may be error and meant daily as this is a very high dose). Reportedly patient some mild decrease in paranoid and delusional content and started verbally talking with treatment team, became less isolative and willing to walk the halls on the unit. -psychotic symptoms present for about 8 years That admission was the 3rd psychiatric hospitalization I spent minutes with the patient and/or on the patient floor today, greater than?50% of which was spent counseling/coordinating care. Reason for contiued inpatient stay Substantial Risk for: rapid decompensation
[2022-02-12 19:50] VITALS: BP 102/63; PULSE 75; TEMP 36.8; O2SAT 96
[2022-02-12] MEDS: cloZAPine 25 MG TABLET 75 MG PO (20:31)
[2022-02-12] MEDS: traZODone HCL 50 MG TABLET PO (20:32)
[2022-02-13 06:00] VITALS: BP 106/64; PULSE 72; RESP 18; TEMP 36.9; O2SAT 96
[2022-02-13] MEDS: cloZAPine 25 MG TABLET PO (08:28)
[2022-02-13 09:09] LABS: Neut%MD 57.3 %; Neutrophils Absolute Auto 4.5 x10*3/uL (2.0-8.3); WBCANC 7.8 X10*3/uL
--- NOTE | 2022-02-13 15:47 | HO.PSYCHPN ---
Subjective Subjective Date of Service: 02/13/22 Reason For Visit: Paranoia Interim History: Reports that auditory hallucinations remain however they continue to decrease in volume and he says that never been this low before. He says he has a feeling the project will be ending soon. Patient showered and washed his clothing Mental Status Exam Mental Status Exam Narrative: Pt is alert and oriented; behavior is cooperative, friendly and calm; patient is not in distress; dressed in hospital attire with unkempt hair and marginal hygiene;? mood is described as the same... ? affect a little blunted but a less so; eye contact appropriate; Speech is normal rate, volume and prosody and not pressured; no psychomotor agitation/retardation present; thought process is goal directed; Thought content is on delusional interactions with Special attack project/DOD; otherwise pertinent to relevant topics; denies any SI/HI.? Auditory hallucinations present.? Patients insight and judgment are impaired Diagnostics Vital Signs (24Hr): Vital Signs - 24 hr 02/12/22 19:50 02/13/22 06:00 Temperature 98.2 F 98.4 F Pulse Rate 75 72 Respiratory Rate 18 Blood Pressure 102/63 106/64 Pulse Oximetry 96 96 BMI result Body Mass Index 18.3 Labs Results: 02/06/22 08:27 01/19/22 07:03 Labs: Laboratory Results - last 48 hr 02/13/22 08:19 Absolute Neuts (auto) 4.5 Medications Medications Current Medications Acetaminophen (Acetaminophen 325 Mg Tablet) 650 mg PO Q6H PRN PRN Reason: Headache/Pain Mild Scale (1-3) Last Admin: 02/01/22 19:56 Dose: 650 mg Documented by: Al Hydroxide/Mg Hydroxide (Magnesium Hydrox/Alum Hydrox 30 Ml Oral.Susp) 30 ml PO Q6H PRN PRN Reason: Heartburn/Nausea Clozapine (Clozapine 25 Mg Tablet) 25 mg PO DAILY LOLA Last Admin: 02/13/22 08:28 Dose: 25 mg Documented by: Clozapine (Clozapine 25 Mg Tablet) 75 mg PO BEDTIME LOLA Last Admin: 02/12/22 20:31 Dose: 75 mg Documented by: Guaifenesin (Guaifenesin 100 Mg/5 Ml Liquid) 5 ml PO Q4H PRN PRN Reason: Cough Last Admin: 02/01/22 19:56 Dose: 5 ml Documented by: Hydroxyzine HCl (Hydroxyzine Hcl 25 Mg Tablet) 25 mg PO BEDTIME PRN PRN Reason: Anxiety Ibuprofen (Ibuprofen 600 Mg Tablet) 600 mg PO Q8H PRN PRN Reason: Pain, Mild (Pain Scale 1-3) Magnesium Hydroxide (Milk Of Magnesia 30 Ml Oral.Susp) 30 ml PO DAILY PRN PRN Reason: Constipation Trazodone HCl (Trazodone Hcl 50 Mg Tablet) 50 mg PO BEDTIME LOLA Last Admin: 02/12/22 20:32 Dose: 50 mg Documented by: Allergies Allergies Allergy/AdvReac Type Severity Reaction Status Date / Time No Known Allergies Allergy Verified 01/18/22 17:46 Assessment & Plan Assessment & Plan (1) Schizoaffective disorder, depressive type: Status: Acute Code(s): F25.1 - Schizoaffective disorder, depressive type Plan HPI: Tomas is a 61 y.o. Male who carries a dx of schizoaffective disorder, depressive type, who presents for his 4th psychiatric hospitalization. He presented to the [facility] ED on 01/17/22 via ambulance called by [place] [employer] due to pt writing a note to police stating that he is in a high level [employer] project. Once at the ED, Tomas complained of headaches, memory loss, hearing loss, and word retrieval issues, which he attributes to high level radio frequency satellites. No substance or alcohol use concerns. HOSPITAL COURSE: 01/19/2022 Patient accepting Risperdal. Would do well with long-acting injectable. Unclear why patient has not had significant treatment over the past number of years. The collateral information from family he is asking we contact his stepfather. His 2 brothers states his no contact with. Patient does not have any children unclear how the patient has been living states he has over million dollars unclear if this is grandiose and delusional 01/20/2022 We would strongly recommend long-acting injectable. Contact family for additional information support unclear what other resources may be available 01/21/22: Increase risperdal to 2 mg BID, as pt has not had response to medication (risperdal started at [facility]) and appears psychotic, unable to care for self. Obtain [facility] discharge paperwork. 01/23 Remains delusional and without any insight. However patient said that headache pain is less today which will hopefully Indicates that Risperdal is having some positive affect. Will leave the current dose for now to see If further improvements can be made 01/28 Patient remains psychotic with auditory hallucinations and paranoid delusions -Risperdal 3 mg b.i.d. has not yet seem to reduce symptoms; will consider switching to another antipsychotic 01/30 DC Risperdal START Zyprexa patient does not seem to have symptom reduction on Risperdal 6 mg total daily dose; he also reports he did not notice perphenazine making any difference and television writer's review of [facility] notes indicate patient had a very similar presentation as he does currently on Risperdal. Patient agrees to switching antipsychotic medication. 01/31 remains delusional and with AH. Tolerating Zyprexa -titrate Zyprexa further. Given patient's age it is preferable to see if 10 mg can eventually reduce symptoms; however the longer patient remains psychotic the harder his psychosis will be to treat. Current literature shows significant evidence that once a medication is at therapeutic dose there is usually a reduction in symptoms when initiating an antipsychotic, within the first couple days. As there has yet to be any effect, it is thus very likely that he will eventually be titrated to at least 15 mg and since he denies any side effects at all will continue to titrate 02/03 remains psychotic with auditory hallucinations and delusions. Agrees with continued titration of Zyprexa 02/04 no change; continue tx; Influenza: resolved 02/06 Remains delusional with auditory hallucinations; patient gives history that He had paranoid delusions for the past 12 or 13 years. Agrees to change medications tomorrow if television writer thinks best 02/07 delusions/auditory hallucinations remain patient agrees to switching medications to clozapine, understands risk of agranulocytosis and agrees to weekly ANC blood checks. 02/08 No change in current treatment plan, denies SE on clozapine 02/11 perhaps some decrease in volume of AH, though they remain. Continue titration 02/13 Auditory hallucinations remain however they continued to decrease in volume to the point where sometimes patient cannot fully make them out which he says has never happened before and is encouraged by. Will continue at same dose for now. But will likely need to titrate further DX: Schizoaffective disorder depressed type. (Paranoid delusions +AH + history of intermittent depressive episodes) PLAN: 1. Schizoaffective disorder Clozapine 25mg daily INCREASE to Clozapine 75mg qhs ANC on 02/06 5100 Check ANC weekly QTc on 02/06 WNL -DISContinue Zyprexa 20mg qhs (zyprexa started on 01/30); no affect, even at max doses; given that the longer psychotic symptoms remained the hardly become to treat, will discontinue Zyprexa and start clozapine MED TRIals Perphenazine: not effective (tried at [facility]) Risperdal: not effective (tried at [place]) Zyprexa: no effect Otherwise: Q15 min safety checks, CV Monitor response to medications. Monitor for safety in the milieu. Discharge on stabilization. 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 At 1st patient would not verbally talk to staff there are and only communicating via written communication. Patient treated with perphenazine titrated to 20 mg b.i.d. (may be error and meant daily as this is a very high dose). Reportedly patient some mild decrease in paranoid and delusional content and started verbally talking with treatment team, became less isolative and willing to walk the halls on the unit. -psychotic symptoms present for about 8 years That admission was the 3rd psychiatric hospitalization I spent minutes with the patient and/or on the patient floor today, greater than?50% of which was spent counseling/coordinating care. Reason for contiued inpatient stay Substantial Risk for: inability to function
[2022-02-13 18:00] VITALS: BP 143/84; PULSE 66; TEMP 36.2; O2SAT 96
[2022-02-13] MEDS: cloZAPine 25 MG TABLET 75 MG PO (21:47)
[2022-02-13] MEDS: traZODone HCL 50 MG TABLET PO (21:50)
[2022-02-14 06:00] VITALS: PULSE 76; RESP 14; TEMP 36.6; O2SAT 98
[2022-02-14 07:00] VITALS: BMI 19.1
[2022-02-14] MEDS: cloZAPine 25 MG TABLET PO (09:13)
--- NOTE | 2022-02-14 10:34 | HO.PSYCHPN ---
Subjective Subjective Date of Service: 02/14/22 Reason For Visit: Paranoia Interim History: showered on own w/out prompting; changed cloths Patient says he is overall the same. He continues to have auditory hallucinations however he says that they are much lower in volume. He also says he does not feel his mind is as confused as usual. Patient again tells underwriter mortgage loan he thinks the project will shut down in 24 hours Mental Status Exam Mental Status Exam Narrative: Pt is alert and oriented; behavior is cooperative, friendly and calm; patient is not in distress; dressed in casual cloths with unkempt hair but good hygiene;? mood is described as the same... ? affect more expressive; eye contact appropriate; Speech is normal rate, volume and prosody and not pressured; no psychomotor agitation/retardation present; thought process is goal directed; Thought content is on delusional interactions with Special attack project/DOD; otherwise pertinent to relevant topics; denies any SI/HI.? Auditory hallucinations present.? Patients insight and judgment are impaired Diagnostics Vital Signs (24Hr): Vital Signs - 24 hr 02/13/22 18:00 02/14/22 06:00 Temperature 97.2 F 97.9 F Pulse Rate 66 76 Respiratory Rate 14 Blood Pressure 143/84 H Pulse Oximetry 96 98 BMI result Body Mass Index 18.3 Labs Results: 02/06/22 08:27 01/19/22 07:03 Labs: Laboratory Results - last 48 hr 02/13/22 08:19 Absolute Neuts (auto) 4.5 Medications Medications Current Medications Acetaminophen (Acetaminophen 325 Mg Tablet) 650 mg PO Q6H PRN PRN Reason: Headache/Pain Mild Scale (1-3) Last Admin: 02/01/22 19:56 Dose: 650 mg Documented by: Al Hydroxide/Mg Hydroxide (Magnesium Hydrox/Alum Hydrox 30 Ml Oral.Susp) 30 ml PO Q6H PRN PRN Reason: Heartburn/Nausea Clozapine (Clozapine 25 Mg Tablet) 25 mg PO DAILY LOLA Last Admin: 02/14/22 09:13 Dose: 25 mg Documented by: Guaifenesin (Guaifenesin 100 Mg/5 Ml Liquid) 5 ml PO Q4H PRN PRN Reason: Cough Last Admin: 02/01/22 19:56 Dose: 5 ml Documented by: Hydroxyzine HCl (Hydroxyzine Hcl 25 Mg Tablet) 25 mg PO BEDTIME PRN PRN Reason: Anxiety Ibuprofen (Ibuprofen 600 Mg Tablet) 600 mg PO Q8H PRN PRN Reason: Pain, Mild (Pain Scale 1-3) Magnesium Hydroxide (Milk Of Magnesia 30 Ml Oral.Susp) 30 ml PO DAILY PRN PRN Reason: Constipation Trazodone HCl (Trazodone Hcl 50 Mg Tablet) 50 mg PO BEDTIME LOLA Last Admin: 02/13/22 21:50 Dose: 50 mg Documented by: Allergies Allergies Allergy/AdvReac Type Severity Reaction Status Date / Time No Known Allergies Allergy Verified 01/18/22 17:46 Assessment & Plan Assessment & Plan (1) Schizoaffective disorder, depressive type: Status: Acute Code(s): F25.1 - Schizoaffective disorder, depressive type Plan HPI: Tomas is a 61 y.o. Male who carries a dx of schizoaffective disorder, depressive type, who presents for his 4th psychiatric hospitalization. He [place] the [facility] [place] on [place]17/22 via ambulance called by [place] Police due to pt writing a note to police stating that he is in a high level [employer] project. Once at the ED, Tomas complained of headaches, memory loss, hearing loss, and word retrieval issues, which he attributes to high level radio frequency satellites. No substance or alcohol use concerns. HOSPITAL COURSE: 01/19/2022 Patient accepting Risperdal. Would do well with long-acting injectable. Unclear why patient has not had significant treatment over the past number of years. The collateral information from family he is asking we contact his stepfather. His 2 brothers states his no contact with. Patient does not have any children unclear how the patient has been living states he has over million dollars unclear if this is grandiose and delusional 01/20/2022 We would strongly recommend long-acting injectable. Contact family for additional information support unclear what other resources may be available 01/21/22: Increase risperdal to 2 mg BID, as pt has not had response to medication (risperdal started at [facility] [place]) and appears psychotic, unable to care for self. Obtain [facility] discharge paperwork. 01/23 Remains delusional and without any insight. However patient said that headache pain is less today which will hopefully Indicates that Risperdal is having some positive affect. Will leave the current dose for now to see If further improvements can be made 01/28 Patient remains psychotic with auditory hallucinations and paranoid delusions -Risperdal 3 mg b.i.d. has not yet seem to reduce symptoms; will consider switching to another antipsychotic 01/30 DC Risperdal START Zyprexa patient does not seem to have symptom reduction on Risperdal 6 mg total daily dose; he also reports he did not notice perphenazine making any difference and underwriter mortgage loan's review of [facility] notes indicate patient had a very similar presentation as he does currently on Risperdal. Patient agrees to switching antipsychotic medication. 01/31 remains delusional and with AH. Tolerating Zyprexa -titrate Zyprexa further. Given patient's age it is preferable to see if 10 mg can eventually reduce symptoms; however the longer patient remains psychotic the harder his psychosis will be to treat. Current literature shows significant evidence that once a medication is at therapeutic dose there is usually a reduction in symptoms when initiating an antipsychotic, within the first couple days. As there has yet to be any effect, it is thus very likely that he will eventually be titrated to at least 15 mg and since he denies any side effects at all will continue to titrate 02/03 remains psychotic with auditory hallucinations and delusions. Agrees with continued titration of Zyprexa 02/04 no change; continue tx; Influenza: resolved 02/06 Remains delusional with auditory hallucinations; patient gives history that He had paranoid delusions for the past 12 or 13 years. Agrees to change medications tomorrow if underwriter mortgage loan thinks best 02/07 delusions/auditory hallucinations remain patient agrees to switching medications to clozapine, understands risk of agranulocytosis and agrees to weekly ANC blood checks. 02/08 No change in current treatment plan, denies SE on clozapine 02/11 perhaps some decrease in volume of AH, though they remain. Continue titration 02/13 Auditory hallucinations remain however they continued to decrease in volume to the point where sometimes patient cannot fully make them out which he says has never happened before and is encouraged by. Will continue at same dose for now. But will likely need to titrate further DX: Schizoaffective disorder depressed type. (Paranoid delusions +AH + history of intermittent depressive episodes) PLAN: 1. Schizoaffective disorder Clozapine 25mg daily INCREASEd to Clozapine 75mg qhs ANC on 02/06 5100 Check ANC weekly QTc on 02/06 WNL -DISContinue Zyprexa 20mg qhs (zyprexa started on 01/30); no affect, even at max doses; given that the longer psychotic symptoms remained the hardly become to treat, will discontinue Zyprexa and start clozapine MED TRIals Perphenazine: not effective (tried at [facility]) Risperdal: not effective (tried at [facility]) Zyprexa: no effect Otherwise: Q15 min safety checks, CV Monitor response to medications. Monitor for safety in the milieu. Discharge on stabilization. 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 At 1st patient would not verbally talk to staff there are and only communicating via written communication. Patient treated with perphenazine titrated to 20 mg b.i.d. (may be error and meant daily as this is a very high dose). Reportedly patient some mild decrease in paranoid and delusional content and started verbally talking with treatment team, became less isolative and willing to walk the halls on the unit. -psychotic symptoms present for about 8 years That admission was the 3rd psychiatric hospitalization I spent minutes with the patient and/or on the patient floor today, greater than?50% of which was spent counseling/coordinating care. Informed Consent: does not understand Reason for contiued inpatient stay Substantial Risk for: rapid decompensation
[2022-02-14 20:14] VITALS: BP 105/66; PULSE 82
[2022-02-14] MEDS: cloZAPine 100 MG TABLET PO (20:25)
[2022-02-14] MEDS: traZODone HCL 50 MG TABLET PO (20:26)
[2022-02-15 06:15] VITALS: BP 107/72; PULSE 78; RESP 15; TEMP 36.6; O2SAT 99
[2022-02-15] MEDS: cloZAPine 25 MG TABLET PO (08:44)
--- NOTE | 2022-02-15 17:34 | HO.PSYCHPN ---
Subjective Subjective Date of Service: 02/15/22 Reason For Visit: Paranoia Subjective Notes: Tsang Warning and Conditional Voluntary Healthcare Proxy: No Guardianship: No Medical Problems Affecting Mental Status: No Interim History: Patient seen and discussed with team. Patient evaluated today and upon interview he reports he feels about the same as yesterday, i.e. continues to report head pain and dizziness, slow thoughts. Says that the Project im in will be ending in 24 hours, he thought it was gonna end today but says it was delayed. Says at that point the frequency will end. Feels Excited for this. Per pt, Everything else is okay. Feels safe. In the milieu, patient is safe but isolative in behavior. Medication Compliance: Yes Side effects from medications: No Attending Groups: No Review of Systems Acute medical concerns: No Medical Review of Systems: unchanged Mental Status Exam Mental Status Exam Narrative: Pt is alert and oriented; behavior is cooperative, friendly and calm; patient is not in distress; dressed in hospital attire with unkempt hair and marginal hygiene;? mood is described as the same... ? affect is appropriate, somewhat blunted; eye contact appropriate; Speech is normal rate, volume and prosody and not pressured; no psychomotor agitation/retardation present; thought process is goal directed; Thought content is on delusional interactions with Special attack project/DOD; otherwise pertinent to relevant topics; denies any SI/HI.? Auditory hallucinations present.? Patients insight and judgment are impaired Diagnostics Vital Signs (24Hr): Vital Signs - 24 hr 02/14/22 20:14 02/15/22 06:15 Temperature 97.8 F Pulse Rate 82 78 Respiratory Rate 15 Blood Pressure 105/66 107/72 Pulse Oximetry 99 BMI result Body Mass Index 19.1 Labs Results: 02/06/22 08:27 01/19/22 07:03 Medications Medications Current Medications Acetaminophen (Acetaminophen 325 Mg Tablet) 650 mg PO Q6H PRN PRN Reason: Headache/Pain Mild Scale (1-3) Last Admin: 02/01/22 19:56 Dose: 650 mg Documented by: Al Hydroxide/Mg Hydroxide (Magnesium Hydrox/Alum Hydrox 30 Ml Oral.Susp) 30 ml PO Q6H PRN PRN Reason: Heartburn/Nausea Clozapine (Clozapine 25 Mg Tablet) 25 mg PO DAILY LOLA Last Admin: 02/15/22 08:44 Dose: 25 mg Documented by: Clozapine (Clozapine 25 Mg Tablet) 125 mg PO BEDTIME LOLA Guaifenesin (Guaifenesin 100 Mg/5 Ml Liquid) 5 ml PO Q4H PRN PRN Reason: Cough Last Admin: 02/01/22 19:56 Dose: 5 ml Documented by: Hydroxyzine HCl (Hydroxyzine Hcl 25 Mg Tablet) 25 mg PO BEDTIME PRN PRN Reason: Anxiety Ibuprofen (Ibuprofen 600 Mg Tablet) 600 mg PO Q8H PRN PRN Reason: Pain, Mild (Pain Scale 1-3) Magnesium Hydroxide (Milk Of Magnesia 30 Ml Oral.Susp) 30 ml PO DAILY PRN PRN Reason: Constipation Trazodone HCl (Trazodone Hcl 50 Mg Tablet) 50 mg PO BEDTIME LOLA Last Admin: 02/14/22 20:26 Dose: 50 mg Documented by: Allergies Allergies Allergy/AdvReac Type Severity Reaction Status Date / Time No Known Allergies Allergy Verified 01/18/22 17:46 Assessment & Plan Assessment & Plan (1) Schizoaffective disorder, depressive type: Status: Acute Code(s): F25.1 - Schizoaffective disorder, depressive type Plan HPI: Tomas is a 61 y.o. Male who carries a dx of schizoaffective disorder, depressive type, who presents for his 4th psychiatric hospitalization. He presented to the [facility] [place] [place] ED on 01/17/22 via ambulance called by [place] Police due to pt writing a note to police stating that he is in a high level [employer] project. Once at the ED, Tomas complained of headaches, memory loss, hearing loss, and word retrieval issues, which he attributes to high level radio frequency satellites. No substance or alcohol use concerns. HOSPITAL COURSE: 01/19/2022 Patient accepting Risperdal. Would do well with long-acting injectable. Unclear why patient has not had significant treatment over the past number of years. The collateral information from family he is asking we contact his stepfather. His 2 brothers states his no contact with. Patient does not have any children unclear how the patient has been living states he has over million dollars unclear if this is grandiose and delusional 01/20/2022 We would strongly recommend long-acting injectable. Contact family for additional information support unclear what other resources may be available 01/21/22: Increase risperdal to 2 mg BID, as pt has not had response to medication ([place] [facility] and appears psychotic, unable to care for self. Obtain [facility] [place] paperwork. 01/23 Remains delusional and without any insight. However patient said that headache pain is less today which will hopefully Indicates that Risperdal is having some positive affect. Will leave the current dose for now to see If further improvements can be made 01/28 Patient remains psychotic with auditory hallucinations and paranoid delusions -Risperdal 3 mg b.i.d. has not yet seem to reduce symptoms; will consider switching to another antipsychotic 01/30 DC Risperdal START Zyprexa patient does not seem to have symptom reduction on Risperdal 6 mg total daily dose; he also reports he did not notice perphenazine making any difference and technical publications writer's review of [facility] notes indicate patient had a very similar presentation as he does currently on Risperdal. Patient agrees to switching antipsychotic medication. 01/31 remains delusional and with AH. Tolerating Zyprexa -titrate Zyprexa further. Given patient's age it is preferable to see if 10 mg can eventually reduce symptoms; however the longer patient remains psychotic the harder his psychosis will be to treat. Current literature shows significant evidence that once a medication is at therapeutic dose there is usually a reduction in symptoms when initiating an antipsychotic, within the first couple days. As there has yet to be any effect, it is thus very likely that he will eventually be titrated to at least 15 mg and since he denies any side effects at all will continue to titrate 02/03 remains psychotic with auditory hallucinations and delusions. Agrees with continued titration of Zyprexa 02/04 no change; continue tx; Influenza: resolved 02/06 Remains delusional with auditory hallucinations; patient gives history that He had paranoid delusions for the past 12 or 13 years. Agrees to change medications tomorrow if technical publications writer thinks best 02/07 delusions/auditory hallucinations remain patient agrees to switching medications to clozapine, understands risk of agranulocytosis and agrees to weekly ANC blood checks. 02/08 No change in current treatment plan, denies SE on clozapine 02/11 perhaps some decrease in volume of AH, though they remain. Continue titration 02/13 Auditory hallucinations remain however they continued to decrease in volume to the point where sometimes patient cannot fully make them out which he says has never happened before and is encouraged by. Will continue at same dose for now. But will likely need to titrate further 02/15: No med changes DX: Schizoaffective disorder depressed type. (Paranoid delusions +AH + history of intermittent depressive episodes) PLAN: 1. Schizoaffective disorder Clozapine 25mg daily INCREASE to Clozapine 75mg qhs ANC on 02/06 5100 Check ANC weekly QTc on 02/06 WNL -DISContinue Zyprexa 20mg qhs (zyprexa started on 01/30); no affect, even at max doses; given that the longer psychotic symptoms remained the hardly become to treat, will discontinue Zyprexa and start clozapine MED TRIals Perphenazine: not effective (tried at [facility]) Risperdal: not effective (tried at [facility]) Zyprexa: no effect Otherwise: Q15 min safety checks, CV Monitor response to medications. Monitor for safety in the milieu. Discharge on stabilization. 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 At 1st patient would not verbally talk to staff there are and only communicating via written communication. Patient treated with perphenazine titrated to 20 mg b.i.d. (may be error and meant daily as this is a very high dose). Reportedly patient some mild decrease in paranoid and delusional content and started verbally talking with treatment team, became less isolative and willing to walk the halls on the unit. -psychotic symptoms present for about 8 years That admission was the 3rd psychiatric hospitalization I spent minutes with the patient and/or on the patient floor today, greater than?50% of which was spent counseling/coordinating care. Reason for contiued inpatient stay Substantial Risk for: inability to function, rapid decompensation and med/psych decompensation
[2022-02-15 19:12] VITALS: BP 98/62; PULSE 85
[2022-02-15 19:57] VITALS: BP 100/65; PULSE 76
[2022-02-15] MEDS: traZODone HCL 50 MG TABLET PO (19:57)
[2022-02-15] MEDS: cloZAPine 25 MG TABLET 125 MG PO (19:58)
[2022-02-16 06:00] VITALS: BP 119/80; PULSE 82; TEMP 37.2; O2SAT 97
[2022-02-16] MEDS: cloZAPine 25 MG TABLET PO (08:26)
[2022-02-16 17:56] VITALS: BP 115/61; PULSE 77; RESP 16; TEMP 36.7; O2SAT 97
--- NOTE | 2022-02-16 18:56 | HO.PSYCHPN ---
Subjective Subjective Date of Service: 02/16/22 Reason For Visit: Paranoia Subjective Notes: Tsang Warning and Conditional Voluntary Healthcare Proxy: No Guardianship: No Medical Problems Affecting Mental Status: No Interim History: Patient seen and discussed with team. Patient evaluated today and upon interview pt reports Im doing alright, says he has to lay down and that I still believe its gonna be over, as soon as I know i?ll tell you, thinks the project will end later today. Sleep is good, 8 hours, eating well, denies side effects. Says he feels More dizzy today, a little bit confused, and his pain levels are down. Pt is not going to groups, says he cant keep my head up. In the milieu, patient is safe but isolative in behavior. Denies SI/SIB/HI upon inquiry. Denies irritability or assaultive ideation. Says he feels safe. Medication Compliance: Yes Side effects from medications: No Attending Groups: No Review of Systems Acute medical concerns: No Medical Review of Systems: unchanged Mental Status Exam Mental Status Exam Narrative: Pt is alert and oriented; behavior is cooperative, friendly and calm; patient is not in distress; dressed in hospital attire with unkempt hair and marginal hygiene;? mood is described as the same, ? affect is appropriate, somewhat blunted; eye contact appropriate; Speech is normal rate, volume and prosody and not pressured; no psychomotor agitation/retardation present; thought process is goal directed; Thought content is on delusional interactions with Special attack project/DOD; otherwise pertinent to relevant topics; denies any SI/HI.? Auditory hallucinations present.? Patients insight and judgment are impaired Diagnostics Vital Signs (24Hr): Vital Signs - 24 hr 02/16/22 06:00 02/16/22 17:56 Temperature 99 F 98.1 F Pulse Rate 82 77 Respiratory Rate 16 Blood Pressure 119/80 115/61 Pulse Oximetry 97 97 BMI result Body Mass Index 19.1 Labs Results: 02/06/22 08:27 01/19/22 07:03 Medications Medications Current Medications Acetaminophen (Acetaminophen 325 Mg Tablet) 650 mg PO Q6H PRN PRN Reason: Headache/Pain Mild Scale (1-3) Last Admin: 02/01/22 19:56 Dose: 650 mg Documented by: Al Hydroxide/Mg Hydroxide (Magnesium Hydrox/Alum Hydrox 30 Ml Oral.Susp) 30 ml PO Q6H PRN PRN Reason: Heartburn/Nausea Clozapine (Clozapine 25 Mg Tablet) 25 mg PO DAILY [facility] Last Admin: 02/16/22 08:26 Dose: 25 mg Documented by: Clozapine (Clozapine 25 Mg Tablet) 125 mg PO BEDTIME LOLA Last Admin: 02/16/22 20:51 Dose: 125 mg Documented by: Guaifenesin (Guaifenesin 100 Mg/5 Ml Liquid) 5 ml PO Q4H PRN PRN Reason: Cough Last Admin: 02/01/22 19:56 Dose: 5 ml Documented by: Hydroxyzine HCl (Hydroxyzine Hcl 25 Mg Tablet) 25 mg PO BEDTIME PRN PRN Reason: Anxiety Ibuprofen (Ibuprofen 600 Mg Tablet) 600 mg PO Q8H PRN PRN Reason: Pain, Mild (Pain Scale 1-3) Magnesium Hydroxide (Milk Of Magnesia 30 Ml Oral.Susp) 30 ml PO DAILY PRN PRN Reason: Constipation Trazodone HCl (Trazodone Hcl 50 Mg Tablet) 50 mg PO BEDTIME [facility] Last Admin: 02/16/22 20:51 Dose: 50 mg Documented by: Allergies Allergies Allergy/AdvReac Type Severity Reaction Status Date / Time No Known Allergies Allergy Verified 01/18/22 17:46 Assessment & Plan Assessment & Plan (1) Schizoaffective disorder, depressive type: Status: Acute Code(s): F25.1 - Schizoaffective disorder, depressive type Plan HPI: Tomas is a 61 y.o. Male who carries a dx of schizoaffective disorder, depressive type, who presents for his 4th psychiatric hospitalization. He presented to the [facility] ED on 01/17/22 via ambulance called by [place] [employer] due to pt writing a note to police stating that he is in a high level [employer] project. Once at the ED, Tomas complained of headaches, memory loss, hearing loss, and word retrieval issues, which he attributes to high level radio frequency satellites. No substance or alcohol use concerns. HOSPITAL COURSE: 01/19/2022 Patient accepting Risperdal. Would do well with long-acting injectable. Unclear why patient has not had significant treatment over the past number of years. The collateral information from family he is asking we contact his stepfather. His 2 brothers states his no contact with. Patient does not have any children unclear how the patient has been living states he has over million dollars unclear if this is grandiose and delusional 01/20/2022 We would strongly recommend long-acting injectable. Contact family for additional information support unclear what other resources may be available 01/21/22: Increase risperdal to 2 mg BID, as pt has not had response to medication (risperdal started at [facility] and appears psychotic, unable to care for self. Obtain [facility] discharge paperwork. 01/23 Remains delusional and without any insight. However patient said that headache pain is less today which will hopefully Indicates that Risperdal is having some positive affect. Will leave the current dose for now to see If further improvements can be made 01/28 Patient remains psychotic with auditory hallucinations and paranoid delusions -Risperdal 3 mg b.i.d. has not yet seem to reduce symptoms; will consider switching to another antipsychotic 01/30 DC Risperdal START Zyprexa patient does not seem to have symptom reduction on Risperdal 6 mg total daily dose; he also reports he did not notice perphenazine making any difference and health science writer's review of [facility] notes indicate patient had a very similar presentation as he does currently on Risperdal. Patient agrees to switching antipsychotic medication. 01/31 remains delusional and with AH. Tolerating Zyprexa -titrate Zyprexa further. Given patient's age it is preferable to see if 10 mg can eventually reduce symptoms; however the longer patient remains psychotic the harder his psychosis will be to treat. Current literature shows significant evidence that once a medication is at therapeutic dose there is usually a reduction in symptoms when initiating an antipsychotic, within the first couple days. As there has yet to be any effect, it is thus very likely that he will eventually be titrated to at least 15 mg and since he denies any side effects at all will continue to titrate 02/03 remains psychotic with auditory hallucinations and delusions. Agrees with continued titration of Zyprexa 02/04 no change; continue tx; Influenza: resolved 02/06 Remains delusional with auditory hallucinations; patient gives history that He had paranoid delusions for the past 12 or 13 years. Agrees to change medications tomorrow if health science writer thinks best 02/07 delusions/auditory hallucinations remain patient agrees to switching medications to clozapine, understands risk of agranulocytosis and agrees to weekly ANC blood checks. 02/08 No change in current treatment plan, denies SE on clozapine 02/11 perhaps some decrease in volume of AH, though they remain. Continue titration 02/13 Auditory hallucinations remain however they continued to decrease in volume to the point where sometimes patient cannot fully make them out which he says has never happened before and is encouraged by. Will continue at same dose for now. But will likely need to titrate further 02/15: No med changes 02/16: No med changes for weekend coverage DX: Schizoaffective disorder depressed type. (Paranoid delusions +AH + history of intermittent depressive episodes) PLAN: 1. Schizoaffective disorder Clozapine 25mg daily INCREASE to Clozapine 75mg qhs ANC on 02/06 5100 Check ANC weekly QTc on 02/06 WNL -DISContinue Zyprexa 20mg qhs (zyprexa started on 01/30); no affect, even at max doses; given that the longer psychotic symptoms remained the hardly become to treat, will discontinue Zyprexa and start clozapine MED TRIals Perphenazine: not effective (tried at [facility]) Risperdal: not effective (tried at [facility]) Zyprexa: no effect Otherwise: Q15 min safety checks, CV Monitor response to medications. Monitor for safety in the milieu. Discharge on stabilization. 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 At 1st patient would not verbally talk to staff there are and only communicating via written communication. Patient treated with perphenazine titrated to 20 mg b.i.d. (may be error and meant daily as this is a very high dose). Reportedly patient some mild decrease in paranoid and delusional content and started verbally talking with treatment team, became less isolative and willing to walk the halls on the unit. -psychotic symptoms present for about 8 years That admission was the 3rd psychiatric hospitalization I spent minutes with the patient and/or on the patient floor today, greater than?50% of which was spent counseling/coordinating care. Patient educated on: medication risk/benefits Reason for contiued inpatient stay Substantial Risk for: inability to function, rapid decompensation and med/psych decompensation
[2022-02-16] MEDS: cloZAPine 25 MG TABLET 125 MG PO (20:51)
[2022-02-16] MEDS: traZODone HCL 50 MG TABLET PO (20:51)
[2022-02-17 06:00] VITALS: BP 128/74; PULSE 74; RESP 14; TEMP 36.2; O2SAT 98
[2022-02-17] MEDS: cloZAPine 25 MG TABLET PO (08:02)
--- NOTE | 2022-02-17 18:21 | P.PNPSI_ITS ---
Subjective Subjective Date of Service: 02/17/22 Reason For Visit: Paranoia Subjective Notes: Tsang Warning and Conditional Voluntary Healthcare Proxy: No Guardianship: No Medical Problems Affecting Mental Status: No Interim History: Patient seen and discussed with team. Patient evaluated today and upon interview pt says he feels about the same as yesterday and that the project still hasnt ended yet but im sure its getting close. Sleep is good, slept for 8 hours. Says he is still dizzy right now. Head pain isnt as bad. Says sometimes i cant get to my thoughts. Denies anxiety, or depression. In the milieu, patient is safe and appropriate in behavior. Denies SI/SIB/HI upon inquiry. Denies irritability or assaultive ideation. Says he feels safe. Medication Compliance: Yes Side effects from medications: No Attending Groups: No Review of Systems Acute medical concerns: No Medical Review of Systems: unchanged Mental Status Exam Mental Status Exam Narrative: Pt is alert and oriented; behavior is cooperative, friendly and calm; patient is not in distress; dressed in hospital attire with unkempt hair and marginal hygiene;? mood is described as the same, ? affect is appropriate, somewhat blunted; eye contact appropriate; Speech is normal rate, volume and prosody and not pressured; no psychomotor agitation/retardation present; thought process is goal directed; Thought content is on delusional interactions with Special attack project/DOD; otherwise pertinent to relevant topics; denies any SI/HI.? Auditory hallucinations present.? Patients insight and judgment are impaired Diagnostics Vital Signs (24Hr): Vital Signs - 24 hr 02/17/22 22:00 02/18/22 07:00 Temperature 98.8 F 98.3 F Pulse Rate 87 87 Respiratory Rate 18 Blood Pressure 131/87 109/73 Pulse Oximetry 98 BMI result Body Mass Index 19.1 Labs Results: 02/06/22 08:27 01/19/22 07:03 Medications Medications Current Medications Acetaminophen (Acetaminophen 325 Mg Tablet) 650 mg PO Q6H PRN PRN Reason: Headache/Pain Mild Scale (1-3) Last Admin: 02/01/22 19:56 Dose: 650 mg Documented by: Al Hydroxide/Mg Hydroxide (Magnesium Hydrox/Alum Hydrox 30 Ml Oral.Susp) 30 ml PO Q6H PRN PRN Reason: Heartburn/Nausea Clozapine (Clozapine 25 Mg Tablet) 25 mg PO DAILY LOLA Last Admin: 02/17/22 08:02 Dose: 25 mg Documented by: Clozapine (Clozapine 25 Mg Tablet) 125 mg PO BEDTIME LOLA Last Admin: 02/17/22 21:57 Dose: 125 mg Documented by: Guaifenesin (Guaifenesin 100 Mg/5 Ml Liquid) 5 ml PO Q4H PRN PRN Reason: Cough Last Admin: 02/01/22 19:56 Dose: 5 ml Documented by: Hydroxyzine HCl (Hydroxyzine Hcl 25 Mg Tablet) 25 mg PO BEDTIME PRN PRN Reason: Anxiety Ibuprofen (Ibuprofen 600 Mg Tablet) 600 mg PO Q8H PRN PRN Reason: Pain, Mild (Pain Scale 1-3) Magnesium Hydroxide (Milk Of Magnesia 30 Ml Oral.Susp) 30 ml PO DAILY PRN PRN Reason: Constipation Trazodone HCl (Trazodone Hcl 50 Mg Tablet) 50 mg PO BEDTIME LOLA Last Admin: 02/17/22 21:57 Dose: 50 mg Documented by: Allergies Allergies Allergy/AdvReac Type Severity Reaction Status Date / Time No Known Allergies Allergy Verified 01/18/22 17:46 Assessment & Plan Assessment & Plan (1) Schizoaffective disorder, depressive type: Status: Acute Code(s): F25.1 - Schizoaffective disorder, depressive type Plan HPI: Tomas is a 61 y.o. Male who carries a dx of schizoaffective disorder, depressive type, who presents for his 4th psychiatric hospitalization. [place] [facility] [place] via ambulance called by [place] Police due to pt writing a note to police stating that he is in a high level [employer] project. Once at the ED, Tomas complained of headaches, memory loss, hearing loss, and word retrieval issues, which he attributes to high level radio frequency satellites. No substance or alcohol use concerns. HOSPITAL COURSE: 01/19/2022 Patient accepting Risperdal. Would do well with long-acting injectable. Unclear why patient has not had significant treatment over the past number of years. The collateral information from family he is asking we contact his stepfather. His 2 brothers states his no contact with. Patient does not have any children unclear how the patient has been living states he has over million dollars unclear if this is grandiose and delusional 01/20/2022 We would strongly recommend long-acting injectable. Contact family for additional information support unclear what other resources may be available 01/21/22: Increase risperdal to 2 mg BID, as pt has not had response to medication (risperdal started at [facility]) and appears psychotic, unable to care for self. Obtain [facility] discharge paperwork. 01/23 Remains delusional and without any insight. However patient said that headache pain is less today which will hopefully Indicates that Risperdal is having some positive affect. Will leave the current dose for now to see If further improvements can be made 01/28 Patient remains psychotic with auditory hallucinations and paranoid delusions -Risperdal 3 mg b.i.d. has not yet seem to reduce symptoms; will consider switching to another antipsychotic 01/30 DC Risperdal START Zyprexa patient does not seem to have symptom reduction on Risperdal 6 mg total daily dose; he also reports he did not notice perphenazine making any difference and functional tester typewriters's review of [facility] notes indicate patient had a very similar present ation as he does currently on Risperdal. Patient agrees to switching antipsychotic medication. 01/31 remains delusional and with AH. Tolerating Zyprexa -titrate Zyprexa further. Given patient's age it is preferable to see if 10 mg can eventually reduce symptoms; however the longer patient remains psychotic the harder his psychosis will be to treat. Current literature shows significant evidence that once a medication is at therapeutic dose there is usually a reduction in symptoms when initiating an antipsychotic, within the first couple days. As there has yet to be any effect, it is thus very likely that he will eventually be titrated to at least 15 mg and since he denies any side effects at all will continue to titrate 02/03 remains psychotic with auditory hallucinations and delusions. Agrees with continued titration of Zyprexa 02/04 no change; continue tx; Influenza: resolved 02/06 Remains delusional with auditory hallucinations; patient gives history that He had paranoid delusions for the past 12 or 13 years. Agrees to change medications tomorrow if functional tester typewriters thinks best 02/07 delusions/auditory hallucinations remain patient agrees to switching medications to clozapine, understands risk of agranulocytosis and agrees to weekly ANC blood checks. 02/08 No change in current treatment plan, denies SE on clozapine 02/11 perhaps some decrease in volume of AH, though they remain. Continue titration 02/13 Auditory hallucinations remain however they continued to decrease in volume to the point where sometimes patient cannot fully make them out which he says has never happened before and is encouraged by. Will continue at same dose for now. But will likely need to titrate further 02/15: No med changes 02/16: No med changes for weekend coverage 02/17: No med changes for weekend coverage DX: Schizoaffective disorder depressed type. (Paranoid delusions +AH + history of intermittent depressive episodes) PLAN: 1. Schizoaffective disorder Clozapine 25mg daily INCREASE to Clozapine 75mg qhs ANC on 02/06 5100 Check ANC weekly QTc on 02/06 WNL -DISContinue Zyprexa 20mg qhs (zyprexa started on 01/30); no affect, even at max doses; given that the longer psychotic symptoms remained the hardly become to treat, will discontinue Zyprexa and start clozapine MED TRIals Perphenazine: not effective (tried at [facility]) Risperdal: not effective (tried at [facility]) Zyprexa: no effect Otherwise: Q15 min safety checks, CV Monitor response to medications. Monitor for safety in the milieu. Discharge on stabilization. 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 At 1st patient would not verbally talk to staff there are and only communicating via written communication. Patient treated with perphenazine titrated to 20 mg b.i.d. (may be error and meant daily as this is a very high dose). Reportedly patient some mild decrease in paranoid and delusional content and started verbally talking with treatment team, became less isolative and willing to walk the halls on the unit. -psychotic symptoms present for about 8 years That admission was the 3rd psychiatric hospitalization I spent minutes with the patient and/or on the patient floor today, greater than?50% of which was spent counseling/coordinating care. Patient educated on: medication risk/benefits Reason for contiued inpatient stay Substantial Risk for: inability to function, rapid decompensation and med/psych decompensation
[2022-02-17] MEDS: cloZAPine 25 MG TABLET 125 MG PO (21:57)
[2022-02-17] MEDS: traZODone HCL 50 MG TABLET PO (21:57)
[2022-02-17 22:00] VITALS: BP 131/87; PULSE 87; TEMP 37.1
[2022-02-18 07:00] VITALS: BP 109/73; PULSE 87; RESP 18; TEMP 36.8; O2SAT 98
[2022-02-18] MEDS: cloZAPine 25 MG TABLET PO (08:30)
--- NOTE | 2022-02-18 17:04 | P.PNPSI_ITS ---
Subjective Subjective Date of Service: 02/18/22 Reason For Visit: Paranoia Interim History: Patient pleasant and friendly. Still does not leave his room. He says that the voices continue but they are lower than ever before and they are not even discernible anymore. He takes this as a sign that the project is on The verge of ending Which he is excited about. He still gets dizzy if he keeps his head up and gets a headache but says that he thinks that once the practice over all the electrical components will be removed was heading he will no longer get a headache. To this end He does not want medication for headache pain. Patient agrees to further titration of clozapine Mental Status Exam Mental Status Exam Narrative: Pt is alert and oriented; behavior is cooperative, friendly and calm; patient is not in distress; dressed in casual cloths with unkempt hair but adequate hy giene;? mood is described as the same... ? affect more expressive; eye contact appropriate; Speech is normal rate, volume and prosody and not pressured; no psychomotor agitation/retardation present; thought process is goal directed; Thought content is on delusional interactions with Special attack project/DOD; otherwise pertinent to relevant topics; denies any SI/HI.? Auditory hallucinations present.? Patients insight and judgment are impaired Diagnostics Vital Signs (24Hr): Vital Signs - 24 hr 02/17/22 22:00 02/18/22 07:00 Temperature 98.8 F 98.3 F Pulse Rate 87 87 Respiratory Rate 18 Blood Pressure 131/87 109/73 Pulse Oximetry 98 BMI result Body Mass Index 19.1 Labs Results: 02/06/22 08:27 01/19/22 07:03 Medications Medications Current Medications Acetaminophen (Acetaminophen 325 Mg Tablet) 650 mg PO Q6H PRN PRN Reason: Headache/Pain Mild Scale (1-3) Last Admin: 02/01/22 19:56 Dose: 650 mg Documented by: Al Hydroxide/Mg Hydroxide (Magnesium Hydrox/Alum Hydrox 30 Ml Oral.Susp) 30 ml PO Q6H PRN PRN Reason: Heartburn/Nausea Clozapine (Clozapine 25 Mg Tablet) 25 mg PO DAILY LOLA Last Admin: 02/18/22 08:30 Dose: 25 mg Documented by: Clozapine (Clozapine 25 Mg Tablet) 150 mg PO BEDTIME LOLA Guaifenesin (Guaifenesin 100 Mg/5 Ml Liquid) 5 ml PO Q4H PRN PRN Reason: Cough Last Admin: 02/01/22 19:56 Dose: 5 ml Documented by: Hydroxyzine HCl (Hydroxyzine Hcl 25 Mg Tablet) 25 mg PO BEDTIME PRN PRN Reason: Anxiety Ibuprofen (Ibuprofen 600 Mg Tablet) 600 mg PO Q8H PRN PRN Reason: Pain, Mild (Pain Scale 1-3) Magnesium Hydroxide (Milk Of Magnesia 30 Ml Oral.Susp) 30 ml PO DAILY PRN PRN Reason: Constipation Trazodone HCl (Trazodone Hcl 50 Mg Tablet) 50 mg PO BEDTIME LOLA Last Admin: 02/17/22 21:57 Dose: 50 mg Documented by: Allergies Allergies Allergy/AdvReac Type Severity Reaction Status Date / Time No Known Allergies Allergy Verified 01/18/22 17:46 Assessment & Plan Assessment & Plan (1) Schizoaffective disorder, depressive type: Status: Acute Code(s): F25.1 - Schizoaffective disorder, depressive type Plan HPI: Tomas is a 61 y.o. Male who carries a dx of schizoaffective disorder, depressive type, who presents for his 4th psychiatric hospitalization. He presented to the [facility] ED on 01/17/22 via ambulance called by [place] [employer] due to pt writing a note to police stating that he is in a high level [employer] project. Once at the ED, Tomas complained of headaches, memory loss, hearing loss, and word retrieval issues, which he attributes to high level radio frequency satellites. No substance or alcohol use concerns. Formulation: Meets criteria for diagnosis of schizoaffective disorder (schizophrenia plus hx of depression). History shows that his symptoms have been prevalent for About past 12 years, which is an unusually late onset. No other contributory etiologies apparent including unremarkable brain MRI. Patient's symptoms have made him unable to function on his own and in need of inpatient treatment. Currently patient has no insight DX: Schizoaffective disorder depressed type. (Paranoid delusions +AH + history of intermittent depressive episodes) PLAN: 1. Schizoaffective disorder Clozapine 25mg daily INCREASEd to Clozapine 75mg qhs (on 02/18) ANC on 02/06 5100 Check ANC weekly QTc on 02/06 WNL -DISContinue Zyprexa 20mg qhs (zyprexa started on 01/30); no affect, even at max doses; given that the longer psychotic symptoms remained the hardly become to treat, will discontinue Zyprexa and start clozapine Q15 min safety checks, CV Monitor response to medications. Monitor for safety in the milieu. Discharge on stabilization. for day to day details...see below: HOSPITAL COURSE: 01/19/2022 Patient accepting Risperdal. Would do well with long-acting injectable. Unclear why patient has not had significant treatment over the past number of years. The collateral information from family he is asking we contact his stepfather. His 2 brothers states his no contact with. Patient does not have any children unclear how the patient has been living states he has over million dollars unclear if this is grandiose and delusional 01/20/2022 We would strongly recommend long-acting injectable. Contact family for additional information support unclear what other resources may be available 01/21/22: Increase risperdal to 2 mg BID, as pt has not had response to medication (risperdal started at [facility]) and appears psychotic, unable to care for self. Obtain [facility] discharge paperwork. 01/23 Remains delusional and without any insight. However patient said that headache pain is less today which will hopefully Indicates that Risperdal is having some positive affect. Will leave the current dose for now to see If further improvements can be made 01/28 Patient remains psychotic with auditory hallucinations and paranoid delusions -Risperdal 3 mg b.i.d. has not yet seem to reduce symptoms; will consider switching to another antipsychotic 01/30 DC Risperdal START Zyprexa patient does not seem to have symptom reduction on Risperdal 6 mg total daily dose; he also reports he did not notice perphenazine making any difference and underwriter mortgage loan's review of [facility] notes indicate patient had a very similar present ation as he does currently on Risperdal. Patient agrees to switching antipsychotic medication. 01/31 remains delusional and with AH. Tolerating Zyprexa -titrate Zyprexa further. Given patient's age it is preferable to see if 10 mg can eventually reduce symptoms; however the longer patient remains psychotic the harder his psychosis will be to treat. Current literature shows significant evidence that once a medication is at therapeutic dose there is usually a reduction in symptoms when initiating an antipsychotic, within the first couple days. As there has yet to be any effect, it is thus very likely that he will eventually be titrated to at least 15 mg and since he denies any side effects at all will continue to titrate 02/03 remains psychotic with auditory hallucinations and delusions. Agrees with continued titration of Zyprexa 02/04 no change; continue tx; Influenza: resolved 02/06 Remains delusional with auditory hallucinations; patient gives history that He had paranoid delusions for the past 12 or 13 years. Agrees to change medications tomorrow if underwriter mortgage loan thinks best 02/07 delusions/auditory hallucinations remain patient agrees to switching medications to clozapine, understands risk of agranulocytosis and agrees to weekly ANC blood checks. 02/08 No change in current treatment plan, denies SE on clozapine 02/11 perhaps some decrease in volume of AH, though they remain. Continue titration 02/13 Auditory hallucinations remain however they continued to decrease in volume to the point where sometimes patient cannot fully make them out which he says has never happened before and is encouraged by. Will continue at same dose for now. 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 At 1st patient would not verbally talk to staff there are and only communicating via written communication. Patient treated with perphenazine titrated to 20 mg b.i.d. (may be error and meant daily as this is a very high dose). Reportedly patient some mild decrease in paranoid and delusional content and started verbally talking with treatment team, became less isolative and willing to walk the halls on the unit. -psychotic symptoms present for about 8 years That admission was the 3rd psychiatric hospitalization I spent minutes with the patient and/or on the patient floor today, greater than?50% of which was spent counseling/coordinating care. Reason for contiued inpatient stay Substantial Risk for: rapid decompensation
[2022-02-18 21:00] VITALS: BP 103/65; PULSE 73; RESP 16; TEMP 36.7; O2SAT 96
[2022-02-18] MEDS: traZODone HCL 50 MG TABLET PO (21:58)
[2022-02-18] MEDS: cloZAPine 25 MG TABLET 150 MG PO (21:59)
[2022-02-19 06:00] VITALS: BP 122/74; PULSE 85; RESP 16; TEMP 36.9; O2SAT 98
[2022-02-19] MEDS: cloZAPine 25 MG TABLET PO (08:57)
--- NOTE | 2022-02-19 16:17 | HO.PSYCHPN ---
Subjective Subjective Date of Service: 02/19/22 Reason For Visit: Paranoia Interim History: Patient said that he has gone word that today the project will end. Patient said that pretty much the voices are at so low volume they are inaudible; however he says sometimes at moments he can hear what they are saying which is how he knows the project disposed end. He says he still gets mild headaches from electronics but is hopeful that this too will and soon. Patient denies any medication side effects Mental Status Exam Mental Status Exam Narrative: Pt is alert and oriented; behavior is cooperative, friendly and calm; patient is not in distress; dressed in casual cloths with unkempt hair but adequate hygiene;? mood is described as hopeful... ? affect more expressive; eye contact appropriate; Speech is normal rate, volume and prosody and not pressured; no psychomotor agitation/retardation present; thought process is goal directed; Thought content is on delusional interactions with Special attack project/DOD; otherwise pertinent to relevant topics; denies any SI/HI.? Auditory hallucinations present.? Patients insight and judgment are impaired Diagnostics Vital Signs (24Hr): Vital Signs - 24 hr 02/18/22 21:00 02/19/22 06:00 Temperature 98.1 F 98.4 F Pulse Rate 73 85 Respiratory Rate 16 16 Blood Pressure 103/65 122/74 Pulse Oximetry 96 98 BMI result Body Mass Index 19.1 Labs Results: 02/06/22 08:27 01/19/22 07:03 Medications Medications Current Medications Acetaminophen (Acetaminophen 325 Mg Tablet) 650 mg PO Q6H PRN PRN Reason: Headache/Pain Mild Scale (1-3) Last Admin: 02/01/22 19:56 Dose: 650 mg Documented by: Al Hydroxide/Mg Hydroxide (Magnesium Hydrox/Alum Hydrox 30 Ml Oral.Susp) 30 ml PO Q6H PRN PRN Reason: Heartburn/Nausea Clozapine (Clozapine 25 Mg Tablet) 25 mg PO DAILY LOLA Last Admin: 02/19/22 08:57 Dose: 25 mg Documented by: Clozapine (Clozapine 25 Mg Tablet) 150 mg PO BEDTIME LOLA Last Admin: 02/18/22 21:59 Dose: 150 mg Documented by: Guaifenesin (Guaifenesin 100 Mg/5 Ml Liquid) 5 ml PO Q4H PRN PRN Reason: Cough Last Admin: 02/01/22 19:56 Dose: 5 ml Documented by: Hydroxyzine HCl (Hydroxyzine Hcl 25 Mg Tablet) 25 mg PO BEDTIME PRN PRN Reason: Anxiety Ibuprofen (Ibuprofen 600 Mg Tablet) 600 mg PO Q8H PRN PRN Reason: Pain, Mild (Pain Scale 1-3) Magnesium Hydroxide (Milk Of Magnesia 30 Ml Oral.Susp) 30 ml PO DAILY PRN PRN Reason: Constipation Trazodone HCl (Trazodone Hcl 50 Mg Tablet) 50 mg PO BEDTIME LOLA Last Admin: 02/18/22 21:58 Dose: 50 mg Documented by: Allergies Allergies Allergy/AdvReac Type Severity Reaction Status Date / Time No Known Allergies Allergy Verified 01/18/22 17:46 Assessment & Plan Assessment & Plan (1) Schizoaffective disorder, depressive type: Status: Acute Code(s): F25.1 - Schizoaffective disorder, depressive type Plan HPI: Tomas is a 61 y.o. Male who carries a dx of schizoaffective disorder, depressive type, who presents for his 4th psychiatric hospitalization. He presented to the [facility] ED on 01/17/22 via ambulance called by [place] [employer] due to pt writing a note to police stating that he is in a high level [employer] project. Once at the ED, Tomas complained of headaches, memory loss, hearing loss, and word retrieval issues, which he attributes to high level radio frequency satellites. No substance or alcohol use concerns. Formulation: Meets criteria for diagnosis of schizoaffective disorder (schizophrenia plus hx of depression). History shows that his symptoms have been prevalent for About past 12 years, which is an unusually late onset. No other contributory etiologies apparent including unremarkable brain MRI. Patient's symptoms have made him unable to function on his own and in need of inpatient treatment. Currently patient has no insight DX: Schizoaffective disorder depressed type. (Paranoid delusions +AH + history of intermittent depressive episodes) Current PLAN: Clozapine 25mg daily Continue Clozapine 75mg qhs ANC on 02/06 5100 Check ANC weekly QTc on 02/06 WNL -DISContinue Zyprexa 20mg qhs (zyprexa started on 01/30); no affect, even at max doses; given that the longer psychotic symptoms remained the hardly become to treat, will discontinue Zyprexa and start clozapine Q15 min safety checks, CV Monitor response to medications. Monitor for safety in the milieu. Discharge on stabilization. for day to day details...see below: HOSPITAL COURSE: 01/19/2022 Patient accepting Risperdal. Would do well with long-acting injectable. Unclear why patient has not had significant treatment over the past number of years. The collateral information from family he is asking we contact his stepfather. His 2 brothers states his no contact with. Patient does not have any children unclear how the patient has been living states he has over million dollars unclear if this is grandiose and delusional 01/20/2022 We would strongly recommend long-acting injectable. Contact family for additional information support unclear what other resources may be available 01/21/22: Increase risperdal to 2 mg BID, as pt has not had response to medication (risperdal started at [facility]) and appears psychotic, unable to care for self. Obtain [facility] discharge paperwork. 01/23 Remains delusional and without any insight. However patient said that headache pain is less today which will hopefully Indicates that Risperdal is having some positive affect. Will leave the current dose for now to see If further improvements can be made 01/28 Patient remains psychotic with auditory hallucinations and paranoid delusions -Risperdal 3 mg b.i.d. has not yet seem to reduce symptoms; will consider switching to another antipsychotic 01/30 DC Risperdal START Zyprexa patient does not seem to have symptom reduction on Risperdal 6 mg total daily dose; he also reports he did not notice perphenazine making any difference and journalists and other writers's review of [facility] notes indicate patient had a very similar presentation as he does currently on Risperdal. Patient agrees to switching antipsychotic medication. 01/31 remains delusional and with AH. Tolerating Zyprexa -titrate Zyprexa further. Given patient's age it is preferable to see if 10 mg can eventually reduce symptoms; however the longer patient remains psychotic the harder his psychosis will be to treat. Current literature shows significant evidence that once a medication is at therapeutic dose there is usually a reduction in symptoms when initiating an antipsychotic, within the first couple days. As there has yet to be any effect, it is thus very likely that he will eventually be titrated to at least 15 mg and since he denies any side effects at all will continue to titrate 02/03 remains psychotic with auditory hallucinations and delusions. Agrees with continued titration of Zyprexa 02/04 no change; continue tx; Influenza: resolved 02/06 Remains delusional with auditory hallucinations; patient gives history that He had paranoid delusions for the past 12 or 13 years. Agrees to change medications tomorrow if journalists and other writers thinks best 02/07 delusions/auditory hallucinations remain patient agrees to switching medications to clozapine, understands risk of agranulocytosis and agrees to weekly ANC blood checks. 02/08 No change in current treatment plan, denies SE on clozapine 02/11 perhaps some decrease in volume of AH, though they remain. Continue titration 02/13 Auditory hallucinations remain however they continued to decrease in volume to the point where sometimes patient cannot fully make them out which he says has never happened before and is encouraged by. Will continue at same dose for now. 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 At 1st patient would not verbally talk to staff there are and only communicating via written communication. Patient treated with perphenazine titrated to 20 mg b.i.d. (may be error and meant daily as this is a very high dose). Reportedly patient some mild decrease in paranoid and delusional content and started verbally talking with treatment team, became less isolative and willing to walk the halls on the unit. -psychotic symptoms present for about 8 years That admission was the 3rd psychiatric hospitalization I spent minutes with the patient and/or on the patient floor today, greater than?50% of which was spent counseling/coordinating care. Reason for contiued inpatient stay Substantial Risk for: inability to function
[2022-02-19] MEDS: cloZAPine 25 MG TABLET 150 MG PO (20:50)
[2022-02-19] MEDS: traZODone HCL 50 MG TABLET PO (20:50)
[2022-02-19 20:55] VITALS: BP 95/64; PULSE 83; TEMP 36.9; O2SAT 95
[2022-02-20 06:00] VITALS: BP 132/85; PULSE 73; RESP 16; TEMP 36.4; O2SAT 98
[2022-02-20] MEDS: cloZAPine 25 MG TABLET PO (08:40)
[2022-02-20 09:15] LABS: Neut%MD 56.6 %; Neutrophils Absolute Auto 3.3 x10*3/uL (2.0-8.3); WBCANC 5.8 X10*3/uL
--- NOTE | 2022-02-20 10:46 | P.PNPSI_ITS ---
Subjective Subjective Date of Service: 02/20/22 Reason For Visit: Paranoia Interim History: Patient says he has the same And that project has not ended. He does still have auditory hallucinations but says most of it is inaudible and only sometimes Lorrie understand what is being said and in this case that the project will continue. Denies any medication side effects and has no other complaints. Agrees to continue titration of clozapine Mental Status Exam Mental Status Exam Narrative: Pt is alert and oriented; behavior is cooperative, friendly and calm; patient is not in distress; dressed in casual cloths with unkempt hair but adequate hygiene;? mood is described as ok... ? affect more expressive; eye contact appropriate; Speech is normal rate, volume and prosody and not pressured; no psychomotor agitation/retardation present; thought process is goal directed; Thought content is on delusional interactions with Special attack project/DOD; otherwise pertinent to relevant topics; denies any SI/HI.? Auditory hallucinations present.? Patients insight and judgment are impaired Diagnostics Vital Signs (24Hr): Vital Signs - 24 hr 02/19/22 20:55 02/20/22 06:00 Temperature 98.5 F 97.5 F Pulse Rate 83 73 Respiratory Rate 16 Blood Pressure 95/64 132/85 Pulse Oximetry 95 98 BMI result Body Mass Index 19.1 Labs Results: 02/06/22 08:27 01/19/22 07:03 Labs: Laboratory Results - last 48 hr 02/20/22 07:56 Absolute Neuts (auto) 3.3 Medications Medications Current Medications Acetaminophen (Acetaminophen 325 Mg Tablet) 650 mg PO Q6H PRN PRN Reason: Headache/Pain Mild Scale (1-3) Last Admin: 02/01/22 19:56 Dose: 650 mg Documented by: Al Hydroxide/Mg Hydroxide (Magnesium Hydrox/Alum Hydrox 30 Ml Oral.Susp) 30 ml PO Q6H PRN PRN Reason: Heartburn/Nausea Clozapine (Clozapine 25 Mg Tablet) 25 mg PO DAILY LOLA Last Admin: 02/20/22 08:40 Dose: 25 mg Documented by: Clozapine (Clozapine 25 Mg Tablet) 175 mg PO BEDTIME LOLA Guaifenesin (Guaifenesin 100 Mg/5 Ml Liquid) 5 ml PO Q4H PRN PRN Reason: Cough Last Admin: 02/01/22 19:56 Dose: 5 ml Documented by: Hydroxyzine HCl (Hydroxyzine Hcl 25 Mg Tablet) 25 mg PO BEDTIME PRN PRN Reason: Anxiety Ibuprofen (Ibuprofen 600 Mg Tablet) 600 mg PO Q8H PRN PRN Reason: Pain, Mild (Pain Scale 1-3) Magnesium Hydroxide (Milk Of Magnesia 30 Ml Oral.Susp) 30 ml PO DAILY PRN PRN Reason: Constipation Trazodone HCl (Trazodone Hcl 50 Mg Tablet) 50 mg PO BEDTIME LOLA Last Admin: 02/19/22 20:50 Dose: 50 mg Documented by: Allergies Allergies Allergy/AdvReac Type Severity Reaction Status Date / Time No Known Allergies Allergy Verified 01/18/22 17:46 Assessment & Plan Assessment & Plan (1) Schizoaffective disorder, depressive type: Status: Acute Code(s): F25.1 - Schizoaffective disorder, depressive type Plan HPI: Tomas is a 61 y.o. Male who carries a dx of schizoaffective disorder, depressive type, who presents for his 4th psychiatric hospitalization. He presented to the [facility] ED on 01/17/22 via ambulance called by [place] [employer] due to pt writing a note to police stating that he is in a high level [employer] project. Once at the ED, Tomas complained of headaches, memory loss, hearing loss, and word retrieval issues, which he attributes to high level radio frequency satellites. No substance or alcohol use concerns. Formulation: Meets criteria for diagnosis of schizoaffective disorder (schizophrenia plus hx of depression). History shows that his symptoms have been prevalent for About past 12 years, which is an unusually late onset. No other contributory etiologies apparent including unremarkable brain MRI. Patient's symptoms have made him unable to function on his own and in need of inpatient treatment. Currently patient has no insight DX: Schizoaffective disorder depressed type. (Paranoid delusions +AH + history of intermittent depressive episodes) Current PLAN: Clozapine 25mg daily INCREASED to Clozapine 175mg qhs ANC on 02/20 is 3.3 Check ANC weekly QTc on 02/06 WNL -DISContinue Zyprexa 20mg qhs (zyprexa started on 01/30); no affect, even at max doses; given that the longer psychotic symptoms remained the hardly become to treat, will discontinue Zyprexa and start clozapine Q15 min safety checks, CV Monitor response to medications. Monitor for safety in the milieu. Discharge on stabilization. for day to day details...see below: HOSPITAL COURSE: 01/19/2022 Patient accepting Risperdal. Would do well with long-acting injectable. Unclear why patient has not had significant treatment over the past number of years. The collateral information from family he is asking we contact his stepfather. His 2 brothers states his no contact with. Patient does not have any children unclear how the patient has been living states he has over million dollars unclear if this is grandiose and delusional 01/20/2022 We would strongly recommend long-acting injectable. Contact family for additional information support unclear what other resources may be available 01/21/22: Increase risperdal to 2 mg BID, as pt has not had response to medication (risperdal started at [facility]) and appears psychotic, unable to care for self. Obtain [facility] discharge paperwork. 01/23 Remains delusional and without any insight. However patient said that headache pain is less today which will hopefully Indicates that Risperdal is having some positive affect. Will leave the current dose for now to see If furt her improvements can be made 01/28 Patient remains psychotic with auditory hallucinations and paranoid delusions -Risperdal 3 mg b.i.d. has not yet seem to reduce symptoms; will consider switching to another antipsychotic 01/30 DC Risperdal START Zyprexa patient does not seem to have symptom reduction on Risperdal 6 mg total daily dose; he also reports he did not notice perphenazine making any difference and automotive service writer's review of [facility] notes indicate patient had a very similar presentation as he does currently on Risperdal. Patient agrees to switching antipsychotic medication. 01/31 remains delusional and with AH. Tolerating Zyprexa -titrate Zyprexa further. Given patient's age it is preferable to see if 10 mg can eventually reduce symptoms; however the longer patient remains psychotic the harder his psychosis will be to treat. Current literature shows significant evidence that once a medication is at therapeutic dose there is usually a reduction in symptoms when initiating an antipsychotic, within the first couple days. As there has yet to be any effect, it is thus very likely that he will eventually be titrated to at least 15 mg and since he denies any side effects at all will continue to titrate 02/03 remains psychotic with auditory hallucinations and delusions. Agrees with continued titration of Zyprexa 02/04 no change; continue tx; Influenza: resolved 02/06 Remains delusional with auditory hallucinations; patient gives history that He had paranoid delusions for the past 12 or 13 years. Agrees to change medications tomorrow if automotive service writer thinks best 02/07 delusions/auditory hallucinations remain patient agrees to switching medications to clozapine, understands risk of agranulocytosis and agrees to weekly ANC blood checks. 02/08 No change in current treatment plan, denies SE on clozapine 02/11 perhaps some decrease in volume of AH, though they remain. Continue titration 02/13 Auditory hallucinations remain however they continued to decrease in volume to the point where sometimes patient cannot fully make them out which he says has never happened before and is encouraged by. Will continue at same dose for now. 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 At 1st patient would not verbally talk to staff there are and only communicating via written communication. Patient treated with perphenazine titrated to 20 mg b.i.d. (may be error and meant daily as this is a very high dose). Reportedly patient some mild decrease in paranoid and delusional content and started verbally talking with treatment team, became less isolative and willing to walk the halls on the unit. -psychotic symptoms present for about 8 years That admission was the 3rd psychiatric hospitalization I spent minutes with the patient and/or on the patient floor today, greater than?50% of which was spent counseling/coordinating care. Patient educated on: medication risk/benefits Reason for contiued inpatient stay Substantial Risk for: inability to function
[2022-02-20 21:45] VITALS: BP 141/80; PULSE 76; TEMP 36.9; O2SAT 97
[2022-02-20] MEDS: cloZAPine 25 MG TABLET 175 MG PO (21:50)
[2022-02-20] MEDS: traZODone HCL 50 MG TABLET PO (21:52)
[2022-02-21] MEDS: cloZAPine 25 MG TABLET PO (08:10)
[2022-02-21 08:55] VITALS: BP 136/85; PULSE 99; RESP 16; TEMP 36.5; O2SAT 98
--- NOTE | 2022-02-21 10:00 | P.PNPSI_ITS ---
Subjective Subjective Date of Service: 02/21/22 Reason For Visit: Paranoia Interim History: As technical report writer walks in patient says He is the same before technical report writer can say much. Patient is pleasant and calm. He says the product has not any continues to have auditory hallucinations though the majority of them are at a very low level and not audible. Title Vehicle Service Attendant discussed possible diagnosis if patient would consider whether it is possible that his experience with the project His mind playing tricks on him. Patient hesitated and said maybe it is possible but he does not believe that to be true. Says his head still gets very dizzy when he tries to talk too much and this is due to the electronics. He agrees to continued clozapine titration Mental Status Exam Mental Status Exam Narrative: Pt is alert and oriented; behavior is cooperative, friendly and calm; patient is not in distress; dressed in casual cloths with unkempt hair but adequate hygiene;? mood is described as the same ? affect more expressive; eye contact appropriate; Speech is normal rate, volume and prosody and not pressured; no psychomotor agitation/retardation present; thought process is goal directed; Thought content is on delusional interactions with Special attack project/DOD; otherwise pertinent to relevant topics; denies any SI/HI.? Auditory hallucinations present.? Patients insight and judgment are impaired Diagnostics Vital Signs (24Hr): Vital Signs - 24 hr 02/20/22 21:45 02/21/22 08:55 Temperature 98.4 F 97.7 F Pulse Rate 76 99 Respiratory Rate 16 Blood Pressure 141/80 H 136/85 Pulse Oximetry 97 98 BMI result Body Mass Index 19.1 Labs Results: 02/06/22 08:27 01/19/22 07:03 Labs: Laboratory Results - last 48 hr 02/20/22 07:56 Absolute Neuts (auto) 3.3 Medications Medications Current Medications Acetaminophen (Acetaminophen 325 Mg Tablet) 650 mg PO Q6H PRN PRN Reason: Headache/Pain Mild Scale (1-3) Last Admin: 02/01/22 19:56 Dose: 650 mg Documented by: Al Hydroxide/Mg Hydroxide (Magnesium Hydrox/Alum Hydrox 30 Ml Oral.Susp) 30 ml PO Q6H PRN PRN Reason: Heartburn/Nausea Clozapine (Clozapine 25 Mg Tablet) 25 mg PO DAILY LOLA Last Admin: 02/21/22 08:10 Dose: 25 mg Documented by: Clozapine (Clozapine 25 Mg Tablet) 175 mg PO BEDTIME LOLA Last Admin: 02/20/22 21:50 Dose: 175 mg Documented by: Guaifenesin (Guaifenesin 100 Mg/5 Ml Liquid) 5 ml PO Q4H PRN PRN Reason: Cough Last Admin: 02/01/22 19:56 Dose: 5 ml Documented by: Hydroxyzine HCl (Hydroxyzine Hcl 25 Mg Tablet) 25 mg PO BEDTIME PRN PRN Reason: Anxiety Ibuprofen (Ibuprofen 600 Mg Tablet) 600 mg PO Q8H PRN PRN Reason: Pain, Mild (Pain Scale 1-3) Magnesium Hydroxide (Milk Of Magnesia 30 Ml Oral.Susp) 30 ml PO DAILY PRN PRN Reason: Constipation Trazodone HCl (Trazodone Hcl 50 Mg Tablet) 50 mg PO BEDTIME LOLA Last Admin: 02/20/22 21:52 Dose: 50 mg Documented by: Allergies Allergies Allergy/AdvReac Type Severity Reaction Status Date / Time No Known Allergies Allergy Verified 01/18/22 17:46 Assessment & Plan Assessment & Plan (1) Schizoaffective disorder, depressive type: Status: Acute Code(s): F25.1 - Schizoaffective disorder, depressive type Plan HPI: Tomas is a 61 y.o. Male who carries a dx of schizoaffective disorder, depressive type, who presents for his 4th psychiatric hospitalization. [place] [facility] [place] via ambulance called by [place] [employer] due to pt writing a note to police stating that he is in a high level [employer] project. Once at the ED, Tomas complained of headaches, memory loss, hearing loss, and word retrieval issues, which he attributes to high level radio frequency satellites. No substance or alcohol use concerns. Formulation: Meets criteria for diagnosis of schizoaffective disorder (schizophrenia plus hx of depression). History shows that his symptoms have been prevalent for About past 12 years, which is an unusually late onset. No other contributory etiologies apparent including unremarkable brain MRI. Patient's symptoms have made him unable to function on his own and in need of inpatient treatment. Currently patient has no insight DX: Schizoaffective disorder depressed type. (Paranoid delusions +AH + history of intermittent depressive episodes) Current PLAN: Clozapine 25mg daily INCREASED to Clozapine 200mg qhs ANC on 02/20 is 3.3 Check ANC weekly QTc on 02/06 WNL -DISContinue Zyprexa 20mg qhs (zyprexa started on 01/30); no affect, even at max doses; given that the longer psychotic symptoms remained the hardly become to treat, will discontinue Zyprexa and start clozapine Q15 min safety checks, CV Monitor response to medications. Monitor for safety in the milieu. Discharge on stabilization. for day to day details...see below: HOSPITAL COURSE: 01/19/2022 Patient accepting Risperdal. Would do well with long-acting injectable. Unclear why patient has not had significant treatment over the past number of years. The collateral information from family he is asking we contact his stepfather. His 2 brothers states his no contact with. Patient does not have any children unclear how the patient has been living states he has over million dollars unclear if this is grandiose and delusional 01/20/2022 We would strongly recommend long-acting injectable. Contact family for additional information support unclear what other resources may be available 01/21/22: Increase risperdal to 2 mg BID, as pt has not had response to medication ([place] [facility] and appears psychotic, unable to care for self. Obtain [facility] [place]. 01/23 Remains delusional and without any insight. However patient said that headache pain is less today which will hopefully Indicates that Risperdal is having some positive affect. Will leave the current dose for now to see If further improvements can be made 01/28 Patient remains psychotic with auditory hallucinations and paranoid delusions -Risperdal 3 mg b.i.d. has not yet seem to reduce symptoms; will consider switching to another antipsychotic 01/30 DC Risperdal START Zyprexa patient does not seem to have symptom reduction on Risperdal 6 mg total daily dose; he also reports he did not notice perphenazine making any difference and technical report writer's review of [facility] notes indicate patient had a very similar presentation as he does currently on Risperdal. Patient agrees to switching antipsychotic medication. 01/31 remains delusional and with AH. Tolerating Zyprexa -titrate Zyprexa further. Given patient's age it is preferable to see if 10 mg can eventually reduce symptoms; however the longer patient remains psychotic the harder his psychosis will be to treat. Current literature shows significant evidence that once a medication is at therapeutic dose there is usually a reduction in symptoms when initiating an antipsychotic, within the first couple days. As there has yet to be any effect, it is thus very likely that he will eventually be titrated to at least 15 mg and since he denies any side effects at all will continue to titrate 02/03 remains psychotic with auditory hallucinations and delusions. Agrees with continued titration of Zyprexa 02/04 no change; continue tx; Influenza: resolved 02/06 Remains delusional with auditory hallucinations; patient gives history that He had paranoid delusions for the past 12 or 13 years. Agrees to change medications tomorrow if technical report writer thinks best 02/07 delusions/auditory hallucinations remain patient agrees to switching medications to clozapine, understands risk of agranulocytosis and agrees to weekly ANC blood checks. 02/08 No change in current treatment plan, denies SE on clozapine 02/11 perhaps some decrease in volume of AH, though they remain. Continue titration 02/13 Auditory hallucinations remain however they continued to decrease in volume to the point where sometimes patient cannot fully make them out which he says has never happened before and is encouraged by. Will continue at same dose for now. But will likely need to titrate further 02/18 Remains with auditory hallucinations but they continue to decrease and are now in discernible; remains without insight but amenable to increasing clozapine 02/21 no further change in symptoms; continue clozapine titration MED TRIals Perphenazine: not effective (tried at [facility]) Risperdal: not effective (tried at [place]) Zyprexa: no effect brain MRI with and without contrast (done at [facility] on 01/11/22): Impression: Normal MRI of the IACs Without and with contrast> Recent Psych hx: Title Vehicle Service Attendant reviewed discharge summary from [facility] were patient was admitted on 12/12/2021 Same presentation, reporting he was part of a government to mind control program with associated AH and headaches. At 1st patient would not verbally talk to staff there are and only communicating via written communication. Patient treated with perphenazine titrated to 20 mg b.i.d. (may be error and meant daily as this is a very high dose). Reportedly patient some mild decrease in paranoid and delusional content and started verbally talking with treatment team, became less isolative and willing to walk the halls on the unit. -psychotic symptoms present for about 8 years That admission was the 3rd psychiatric hospitalization I spent minutes with the patient and/or on the patient floor today, greater than?50% of which was spent counseling/coordinating care. Patient educated on: diagnosis Informed Consent: does not understand Reason for contiued inpatient stay Substantial Risk for: inability to function
[2022-02-21 19:03] VITALS: BP 123/76; PULSE 91
[2022-02-21] MEDS: cloZAPine 100 MG TABLET 200 MG PO (19:27)
[2022-02-22 06:00] VITALS: BP 121/80; PULSE 71; RESP 14; TEMP 37.1; O2SAT 98
[2022-02-22] MEDS: cloZAPine 25 MG TABLET PO ×2 (08:29→20:24)
--- NOTE | 2022-02-22 16:30 | P.PNPSI_ITS ---
Subjective Subjective Date of Service: 02/22/22 Reason For Visit: Paranoia Interim History: No change. Continues to have auditory hallucinations which do remain at lower volume but are consistent. Patient does say that medications should be titrated since it is possible they could help effect part of the brain were the electronics are Mental Status Exam Mental Status Exam Narrative: Pt is alert and oriented; behavior is cooperative, friendly and calm; patient is not in distress; dressed in casual cloths with unkempt hair but adequate hygiene;? mood is described as the same ? affect more expressive; eye contact appropriate; Speech is normal rate, volume and prosody and not pressured; no psychomotor agitation/retardation present; thought process is goal directed; Thought content is on delusional interactions with Special attack project/DOD; otherwise pertinent to relevant topics; denies any SI/HI.? Auditory hallucinations present.? Patients insight and judgment are impaired Diagnostics Vital Signs (24Hr): Vital Signs - 24 hr 02/21/22 19:03 02/22/22 06:00 Temperature 98.7 F Pulse Rate 91 71 Respiratory Rate 14 Blood Pressure 123/76 121/80 Pulse Oximetry 98 BMI result Body Mass Index 19.1 Labs Results: 02/06/22 08:27 01/19/22 07:03 Medications Medications Current Medications Acetaminophen (Acetaminophen 325 Mg Tablet) 650 mg PO Q6H PRN PRN Reason: Headache/Pain Mild Scale (1-3) Last Admin: 02/01/22 19:56 Dose: 650 mg Documented by: Al Hydroxide/Mg Hydroxide (Magnesium Hydrox/Alum Hydrox 30 Ml Oral.Susp) 30 ml PO Q6H PRN PRN Reason: Heartburn/Nausea Clozapine (Clozapine 25 Mg Tablet) 25 mg PO DAILY [facility] Last Admin: 02/22/22 08:29 Dose: 25 mg Documented by: Clozapine (Clozapine 100 Mg Tablet) 200 mg PO BEDTIME LOLA Last Admin: 02/21/22 19:27 Dose: 200 mg Documented by: Guaifenesin (Guaifenesin 100 Mg/5 Ml Liquid) 5 ml PO Q4H PRN PRN Reason: Cough Last Admin: 02/01/22 19:56 Dose: 5 ml Documented by: Hydroxyzine HCl (Hydroxyzine Hcl 25 Mg Tablet) 25 mg PO BEDTIME PRN PRN Reason: Anxiety Ibuprofen (Ibuprofen 600 Mg Tablet) 600 mg PO Q8H PRN PRN Reason: Pain, Mild (Pain Scale 1-3) Magnesium Hydroxide (Milk Of Magnesia 30 Ml Oral.Susp) 30 ml PO DAILY PRN PRN Reason: Constipation Trazodone HCl (Trazodone Hcl 50 Mg Tablet) 50 mg PO BEDTIME LOLA Last Admin: 02/21/22 19:30 Dose: Not Given Documented by: Allergies Allergies Allergy/AdvReac Type Severity Reaction Status Date / Time No Known Allergies Allergy Verified 01/18/22 17:46 Assessment & Plan Assessment & Plan (1) Schizoaffective disorder, depressive type: Status: Acute Code(s): F25.1 - Schizoaffective disorder, depressive type Plan HPI: Tomas is a 61 y.o. Male who carries a dx of schizoaffective disorder, depressive type, who presents for his 4th psychiatric hospitalization. He [place] [facility] [place] via ambulance called by [place] [employer] due to pt writing a note to police stating that he is in a high level [employer] project. Once at the ED, Tomas complained of headaches, memory loss, hearing loss, and word retrieval issues, which he attributes to high level radio frequency satellites. No substance or alcohol use concerns. Formulation: Meets criteria for diagnosis of schizoaffective disorder (schizophrenia plus hx of depression). History shows that his symptoms have been prevalent for About past 12 years, which is an unusually late onset. No other contributory etiologies apparent including unremarkable brain MRI. Patient's symptoms have made him unable to function on his own and in need of inpatient treatment. Currently patient has no insight DX: Schizoaffective disorder depressed type. (Paranoid delusions +AH + history of intermittent depressive episodes) Current PLAN: Clozapine 25mg BID Clozapine 200mg qhs ANC on 02/20 is 3.3 Check ANC weekly QTc on 02/06 WNL -DISContinue Zyprexa 20mg qhs (zyprexa started on 01/30); no affect, even at max doses; given that the longer psychotic symptoms remained the hardly become to treat, will discontinue Zyprexa and start clozapine Q15 min safety checks, CV Monitor response to medications. Monitor for safety in the milieu. Discharge on stabilization. for day to day details...see below: HOSPITAL COURSE: 01/19/2022 Patient accepting Risperdal. Would do well with long-acting injectable. Unclear why patient has not had significant treatment over the past number of years. The collateral information from family he is asking we contact his stepfather. His 2 brothers states his no contact with. Patient does not have any children unclear how the patient has been living states he has over million dollars unclear if this is grandiose and delusional 01/20/2022 We would strongly recommend long-acting injectable. Contact family for additional information support unclear what other resources may be available 01/21/22: Increase risperdal to 2 mg BID, as pt has not had response to medication (risperdal started at [facility]) and appears psychotic, unable to care for self. Obtain [facility] discharge paperwork. 01/23 Remains delusional and without any insight. However patient said that headache pain is less today which will hopefully Indicates that Risperdal is having some positive affect. Will leave the current dose for now to see If further improvements can be made 01/28 Patient remains psychotic with auditory hallucinations and paranoid delusions -Risperdal 3 mg b.i.d. has not yet seem to reduce symptoms; will consider switching to another antipsychotic 01/30 DC Risperdal START Zyprexa patient does not seem to have symptom reduction on Risperdal 6 mg total daily dose; he also reports he did not notice perphenazine making any difference and chief underwriter's review of [facility] notes indicate patient had a very similar presentation as he does currently on Risperdal. Patient agrees to switching antipsychotic medication. 01/31 remains delusional and with AH. Tolerating Zyprexa -titrate Zyprexa further. Given patient's age it is preferable to see if 10 mg can eventually reduce symptoms; however the longer patient remains psychotic the harder his psychosis will be to treat. Current literature shows significant evidence that once a medication is at therapeutic dose there is usually a reduction in symptoms when initiating an antipsychotic, within the first couple days. As there has yet to be any effect, it is thus very likely that he will eventually be titrated to at least 15 mg and since he denies any side effects at all will continue to titrate 02/03 remains psychotic with auditory hallucinations and delusions. Agrees with continued titration of Zyprexa 02/04 no change; continue tx; Influenza: resolved 02/06 Remains delusional with auditory hallucinations; patient gives history that He had paranoid delusions for the past 12 or 13 years. Agrees to change medications tomorrow if chief underwriter thinks best 02/07 delusions/auditory hallucinations remain patient agrees to switching medications to clozapine, understands risk of agranulocytosis and agrees to weekly ANC blood checks. 02/08 No change in current treatment plan, denies SE on clozapine 02/11 perhaps some decrease in volume of AH, though they remain. Continue titration 02/13 Auditory hallucinations remain however they continued to decrease in volume to the point where sometimes patient cannot fully make them out which he says has never happened before and is encouraged by. Will continue at same dose for now. But will likely need to titrate further 02/18 Remains with auditory hallucinations but they continue to decrease and are now in discernible; remains without insight but amenable to increasing clozapine 02/21 no further change in symptoms; continue clozapine titration MED TRIals Perphenazine: not effective (tried at [facility]) Risperdal: not effective (tried at [place]) Zyprexa: no effect brain MRI with and without contrast (done at [facility] on 01/11/22): Impression: Normal MRI of the IACs Without and with contrast> Recent Psych hx: Legal Director reviewed discharge summary from [facility] were patient was admitted on 12/12/2021 Same presentation, reporting he was part of a government to mind control program with associated AH and headaches. At 1st patient would not verbally talk to staff there are and only communicating via written communication. Patient treated with perphenazine titrated to 20 mg b.i.d. (may be error and meant daily as this is a very high dose). Reportedly patient some mild decrease in paranoid and delusional content and started verbally talking with treatment team, became less isolative and willing to walk the halls on the unit. -psychotic symptoms present for about 8 years That admission was the 3rd psychiatric hospitalization I spent minutes with the patient and/or on the patient floor today, greater than?50% of which was spent counseling/coordinating care. Patient educated on: diagnosis Informed Consent: does not understand Reason for contiued inpatient stay Substantial Risk for: inability to function and rapid decompensation
[2022-02-22 20:23] VITALS: BP 114/70; PULSE 79
[2022-02-22] MEDS: cloZAPine 100 MG TABLET 200 MG PO (20:24)
[2022-02-23 06:00] VITALS: BP 128/84; PULSE 88; RESP 16; TEMP 36.6; O2SAT 97
[2022-02-23] MEDS: cloZAPine 25 MG TABLET PO ×2 (08:07→20:37)
--- NOTE | 2022-02-23 17:25 | P.PNPSI_ITS ---
Subjective Subjective Date of Service: 02/23/22 Reason For Visit: Paranoia Interim History: Patient says he is the same and when asked about medications, he said he takes them for headache and voices. He still hears voices but says that their volume went down from a 5-7 to 2-3 . He says he still hears people from the project (referring to the [employer] project he believes is happening). Denies SI. Review of Systems Review of Systems Except for HPI Yes all other systems are reviewed and are negative Constitutional: Denies chills Cardiovascular: Denies chest pain and Denies dyspnea Respiratory: Denies dyspnea Gastrointestinal: Denies abdominal pain and Denies vomiting Mental Status Exam Mental Status Exam Narrative: Pt is alert and oriented; behavior is cooperative, friendly and calm; patient is not in distress; dressed in casual cloths with unkempt hair but adequate hygiene;? mood is described as the same ? affect more expressive; eye contact appropriate; Speech is normal rate, volume and prosody and not pressured; no psychomotor agitation/retardation present; thought process is goal directed; Thought content is on delusional interactions with Special attack project/DOD; otherwise pertinent to relevant topics; denies any SI/HI.? Auditory hallucinations present.? Patients insight and judgment are impaired Patient Appearance: Well Grooomed Patient Orientation: Person, Place and Situation Level of Consciousness: Awake Patient Behavior: Appropriate Mood Description: Flat and Apprehensive Affect Description: Withdrawn, Constricted and Apprehensive Speech Pattern: Impoverished and Monotone Memory Description: Episodic Impaired Diagnostics Vital Signs (24Hr): Vital Signs - 24 hr 02/22/22 20:23 02/23/22 06:00 Temperature 97.9 F Pulse Rate 79 88 Respiratory Rate 16 Blood Pressure 114/70 128/84 Pulse Oximetry 97 BMI result Body Mass Index 19.1 Labs Results: 02/06/22 08:27 01/19/22 07:03 Medications Medications Current Medications Acetaminophen (Acetaminophen 325 Mg Tablet) 650 mg PO Q6H PRN PRN Reason: Headache/Pain Mild Scale (1-3) Last Admin: 02/01/22 19:56 Dose: 650 mg Documented by: Al Hydroxide/Mg Hydroxide (Magnesium Hydrox/Alum Hydrox 30 Ml Oral.Susp) 30 ml PO Q6H PRN PRN Reason: Heartburn/Nausea Clozapine (Clozapine 100 Mg Tablet) 200 mg PO BEDTIME LOLA Last Admin: 02/22/22 20:24 Dose: 200 mg Documented by: Clozapine (Clozapine 25 Mg Tablet) 25 mg PO BID [facility] Last Admin: 02/23/22 08:07 Dose: 25 mg Documented by: Guaifenesin (Guaifenesin 100 Mg/5 Ml Liquid) 5 ml PO Q4H PRN PRN Reason: Cough Last Admin: 02/01/22 19:56 Dose: 5 ml Documented by: Hydroxyzine HCl (Hydroxyzine Hcl 25 Mg Tablet) 25 mg PO BEDTIME PRN PRN Reason: Anxiety Ibuprofen (Ibuprofen 600 Mg Tablet) 600 mg PO Q8H PRN PRN Reason: Pain, Mild (Pain Scale 1-3) Magnesium Hydroxide (Milk Of Magnesia 30 Ml Oral.Susp) 30 ml PO DAILY PRN PRN Reason: Constipation Trazodone HCl (Trazodone Hcl 50 Mg Tablet) 50 mg PO BEDTIME [facility] Last Admin: 02/22/22 20:37 Dose: Not Given Documented by: Allergies Allergies Allergy/AdvReac Type Severity Reaction Status Date / Time No Known Allergies Allergy Verified 01/18/22 17:46 Assessment & Plan Assessment & Plan (1) Schizoaffective disorder, depressive type: Status: Acute Code(s): F25.1 - Schizoaffective disorder, depressive type Plan HPI: Tomas is a 61 y.o. Male who carries a dx of schizoaffective disorder, depressive type, who presents for his 4th psychiatric hospitalization. He presented to the [facility] ED on 01/17/22 via ambulance called by [place] Police due to pt writing a note to police stating that he is in a high level [employer] project. Once at the ED, Tomas complained of headaches, memory loss, hearing loss, and word retr ieval issues, which he attributes to high level radio frequency satellites. No substance or alcohol use concerns. Formulation: Meets criteria for diagnosis of schizoaffective disorder (schizophrenia plus hx of depression). History shows that his symptoms have been prevalent for About past 12 years, which is an unusually late onset. No other contributory etiologies apparent including unremarkable brain MRI. Patient's symptoms have made him unable to function on his own and in need of inpatient treatment. Currently patient has no insight DX: Schizoaffective disorder depressed type. (Paranoid delusions +AH + history of intermittent depressive episodes) Current PLAN: Clozapine 25mg daily INCREASED to Clozapine 200mg qhs ANC on 02/20 is 3.3 Check ANC weekly QTc on 02/06 WNL -DISContinue Zyprexa 20mg qhs (zyprexa started on 01/30); no affect, even at max doses; given that the longer psychotic symptoms remained the hardly become to treat, will discontinue Zyprexa and start clozapine Q15 min safety checks, CV Monitor response to medications. Monitor for safety in the milieu. Discharge on stabilization. for day to day details...see below: HOSPITAL COURSE: 01/19/2022 Patient accepting Risperdal. Would do well with long-acting injectable. Unclear why patient has not had significant treatment over the past number of years. The collateral information from family he is asking we contact his stepfather. His 2 brothers states his no contact with. Patient does not have any children unclear how the patient has been living states he has over million dollars unclear if this is grandiose and delusional 01/20/2022 We would strongly recommend long-acting injectable. Contact family for additional information support unclear what other resources may be available 01/21/22: Increase risperdal to 2 mg BID, as pt has not had response to medication (risperdal started at [facility]) and appears psychotic, unable to care for self. Obtain [facility] discharge paperwork. 01/23 Remains delusional and without any insight. However patient said that headache pain is less today which will hopefully Indicates that Risperdal is having some positive affect. Will leave the current dose for now to see If further improvements can be made 01/28 Patient remains psychotic with auditory hallucinations and paranoid delusions -Risperdal 3 mg b.i.d. has not yet seem to reduce symptoms; will consider switching to another antipsychotic 01/30 DC Risperdal START Zyprexa patient does not seem to have symptom reduction on Risperdal 6 mg total daily dose; he also reports he did not notice perphenazine making any difference and magazine writer's review of [facility] notes indicate patient had a very similar pres entation as he does currently on Risperdal. Patient agrees to switching antipsychotic medication. 01/31 remains delusional and with AH. Tolerating Zyprexa -titrate Zyprexa further. Given patient's age it is preferable to see if 10 mg can eventually reduce symptoms; however the longer patient remains psychotic the harder his psychosis will be to treat. Current literature shows significant evidence that once a medication is at therapeutic dose there is usually a reduction in symptoms when initiating an antipsychotic, within the first couple days. As there has yet to be any effect, it is thus very likely that he will eventually be titrated to at least 15 mg and since he denies any side effects at all will continue to titrate 02/03 remains psychotic with auditory hallucinations and delusions. Agrees with continued titration of Zyprexa 02/04 no change; continue tx; Influenza: resolved 02/06 Remains delusional with auditory hallucinations; patient gives history that He had paranoid delusions for the past 12 or 13 years. Agrees to change medications tomorrow if magazine writer thinks best 02/07 delusions/auditory hallucinations remain patient agrees to switching medications to clozapine, understands risk of agranulocytosis and agrees to weekly ANC blood checks. 02/08 No change in current treatment plan, denies SE on clozapine 02/11 perhaps some decrease in volume of AH, though they remain. Continue titration 02/13 Auditory hallucinations remain however they continued to decrease in volume to the point where sometimes patient cannot fully make them out which he says has never happened before and is encouraged by. Will continue at same dose for now. But will likely need to titrate further 02/18 Remains with auditory hallucinations but they continue to decrease and are now in discernible; remains without insight but amenable to increasing clozapine 02/21 no further change in symptoms; continue clozapine titration 02/23: Continue treatment plan. 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 At 1st patient would not verbally talk to staff there are and only communicating via written communication. Patient treated with perphenazine titrated to 20 mg b.i.d. (may be error and meant daily as this is a very high dose). Reportedly patient some mild decrease in paranoid and delusional content and started verbally talking with treatment team, became less isolative and willing to walk the halls on the unit. -psychotic symptoms present for about 8 years That admission was the 3rd psychiatric hospitalization I spent minutes with the patient and/or on the patient floor today, greater than?50% of which was spent counseling/coordinating care. Reason for contiued inpatient stay Substantial Risk for: inability to function and rapid decompensation
[2022-02-23 19:37] VITALS: BP 104/74; PULSE 92
[2022-02-23] MEDS: cloZAPine 100 MG TABLET 200 MG PO (20:37)
[2022-02-24 06:00] VITALS: BP 117/78; PULSE 73; RESP 16; TEMP 36.9; O2SAT 97
[2022-02-24] MEDS: cloZAPine 25 MG TABLET PO ×2 (08:39→20:01)
--- NOTE | 2022-02-24 12:19 | P.PNPSI_ITS ---
Subjective Subjective Date of Service: 02/24/22 Reason For Visit: Paranoia Interim History: Patient seen and discussed. Remains delusional. Complains of same symptoms of head pain and the dizzies. When asked why, he says because of the project. . He says then the project is about to end soon. He says that the symptoms are from manufactured neuronal pathways. You have neural pathways and so do I. Mine are manufactured by the [employer] system and that's how much I can say about that. He still hears voices but says that their volume went down Denies SI. Review of Systems Review of Systems Except for HPI Yes all other systems are reviewed and are negative Constitutional: Denies chills Cardiovascular: Denies chest pain and Denies dyspnea Respiratory: Denies dyspnea Gastrointestinal: Denies abdominal pain and Denies vomiting Mental Status Exam Mental Status Exam Narrative: Pt is alert and oriented; behavior is cooperative, friendly and calm; patient is not in distress; dressed in casual cloths with unkempt hair but adequate hygiene;? mood is described as the same ? affect more expressive; eye contact appropriate; Speech is normal rate, volume and prosody and not pressured; no psychomotor agitation/retardation present; thought process is goal directed; Thought content is on delusional interactions with Special attack project/DOD; otherwise pertinent to relevant topics; denies any SI/HI.? Auditory hallucinations present.? Patients insight and judgment are impaired Patient Appearance: Well Grooomed Patient Orientation: Person, Place and Situation Level of Consciousness: Awake Patient Behavior: Appropriate Mood Description: Flat and Apprehensive Affect Description: Withdrawn, Constricted and Apprehensive Speech Pattern: Impoverished and Monotone Memory Description: Episodic Impaired Diagnostics Vital Signs (24Hr): Vital Signs - 24 hr 02/23/22 19:37 02/24/22 06:00 Temperature 98.4 F Pulse Rate 92 73 Respiratory Rate 16 Blood Pressure 104/74 117/78 Pulse Oximetry 97 BMI result Body Mass Index 19.1 Labs Results: 02/06/22 08:27 01/19/22 07:03 Medications Medications Current Medications Acetaminophen (Acetaminophen 325 Mg Tablet) 650 mg PO Q6H PRN PRN Reason: Headache/Pain Mild Scale (1-3) Last Admin: 02/01/22 19:56 Dose: 650 mg Documented by: Al Hydroxide/Mg Hydroxide (Magnesium Hydrox/Alum Hydrox 30 Ml Oral.Susp) 30 ml PO Q6H PRN PRN Reason: Heartburn/Nausea Clozapine (Clozapine 100 Mg Tablet) 200 mg PO BEDTIME [facility] Last Admin: 02/23/22 20:37 Dose: 200 mg Documented by: Clozapine (Clozapine 25 Mg Tablet) 25 mg PO BID [facility] Last Admin: 02/24/22 08:39 Dose: 25 mg Documented by: Guaifenesin (Guaifenesin 100 Mg/5 Ml Liquid) 5 ml PO Q4H PRN PRN Reason: Cough Last Admin: 02/01/22 19:56 Dose: 5 ml Documented by: Hydroxyzine HCl (Hydroxyzine Hcl 25 Mg Tablet) 25 mg PO BEDTIME PRN PRN Reason: Anxiety Ibuprofen (Ibuprofen 600 Mg Tablet) 600 mg PO Q8H PRN PRN Reason: Pain, Mild (Pain Scale 1-3) Magnesium Hydroxide (Milk Of Magnesia 30 Ml Oral.Susp) 30 ml PO DAILY PRN PRN Reason: Constipation Trazodone HCl (Trazodone Hcl 50 Mg Tablet) 50 mg PO BEDTIME [facility] Last Admin: 02/23/22 20:48 Dose: Not Given Documented by: Allergies Allergies Allergy/AdvReac Type Severity Reaction Status Date / Time No Known Allergies Allergy Verified 01/18/22 17:46 Assessment & Plan Assessment & Plan (1) Schizoaffective disorder, depressive type: Status: Acute Code(s): F25.1 - Schizoaffective disorder, depressive type Plan HPI: Tomas is a 61 y.o. Male who carries a dx of schizoaffective disorder, depressive type, who presents for his 4th psychiatric hospitalization. [place] [facility] [place] via ambulance called by [place] [employer] due to pt writing a note to police stating that he is in a high level [employer] project. Once at the ED, Tomas complained of headaches, memory loss, hearing loss, and word retrieval issues, which he attributes to high level radio frequency satellites. No substance or alcohol use concerns. Formulation: Meets criteria for diagnosis of schizoaffective disorder (schizophrenia plus hx of depression). History shows that his symptoms have been prevalent for About past 12 years, which is an unusually late onset. No other contributory etiologies apparent including unremarkable brain MRI. Patient's symptoms have made him unable to function on his own and in need of inpatient treatment. Currently patient has no insight DX: Schizoaffective disorder depressed type. (Paranoid delusions +AH + history of intermittent depressive episodes) Current PLAN: Clozapine 25mg daily INCREASED to Clozapine 200mg qhs ANC on 02/20 is 3.3 Check ANC weekly QTc on 02/06 WNL -DISContinue Zyprexa 20mg qhs (zyprexa started on 01/30); no affect, even at max doses; given that the longer psychotic symptoms remained the hardly become to treat, will discontinue Zyprexa and start clozapine Q15 min safety checks, CV Monitor response to medications. Monitor for safety in the milieu. Discharge on stabilization. for day to day details...see below: HOSPITAL COURSE: 01/19/2022 Patient accepting Risperdal. Would do well with long-acting injectable. Unclear why patient has not had significant treatment over the past number of years. The collateral information from family he is asking we contact his step father. His 2 brothers states his no contact with. Patient does not have any children unclear how the patient has been living states he has over million dollars unclear if this is grandiose and delusional 01/20/2022 We would strongly recommend long-acting injectable. Contact family for additional information support unclear what other resources may be available 01/21/22: Increase risperdal to 2 mg BID, as pt has not had response to medication (risperdal started at [facility]) and appears psychotic, unable to care for self. Obtain [facility] discharge paperwork. 01/23 Remains delusional and without any insight. However patient said that headache pain is less today which will hopefully Indicates that Risperdal is having some positive affect. Will leave the current dose for now to see If further improvements can be made 01/28 Patient remains psychotic with auditory hallucinations and paranoid delusions -Risperdal 3 mg b.i.d. has not yet seem to reduce symptoms; will consider switching to another antipsychotic 01/30 DC Risperdal START Zyprexa patient does not seem to have symptom reduction on Risperdal 6 mg total daily dose; he also reports he did not notice perphenazine making any difference and database report writer's review of [facility] notes indicate patient had a very similar presentation as he does currently on Risperdal. Patient agrees to switching antipsychotic medication. 01/31 remains delusional and with AH. Tolerating Zyprexa -titrate Zyprexa further. Given patient's age it is preferable to see if 10 mg can eventually reduce symptoms; however the longer patient remains psychotic the harder his psychosis will be to treat. Current literature shows significant evidence that once a medication is at therapeutic dose there is usually a reduction in symptoms when initiating an antipsychotic, within the first couple days. As there has yet to be any effect, it is thus very likely that he will eventually be titrated to at least 15 mg and since he denies any side effects at all will continue to titrate 02/03 remains psychotic with auditory hallucinations and delusions. Agrees with continued titration of Zyprexa 02/04 no change; continue tx; Influenza: resolved 02/06 Remains delusional with auditory hallucinations; patient gives history that He had paranoid delusions for the past 12 or 13 years. Agrees to change medications tomorrow if database report writer thinks best 02/07 delusions/auditory hallucinations remain patient agrees to switching medications to clozapine, understands risk of agranulocytosis and agrees to weekly ANC blood checks. 02/08 No change in current treatment plan, denies SE on clozapine 02/11 perhaps some decrease in volume of AH, though they remain. Continue titration 02/13 Auditory hallucinations remain however they continued to decrease in volume to the point where sometimes patient cannot fully make them out which he says has never happened before and is encouraged by. Will continue at same dose for now. But will likely need to titrate further 02/18 Remains with auditory hallucinations but they continue to decrease and are now in discernible; remains without insight but amenable to increasing clozapine 02/21 no further change in symptoms; continue clozapine titration 02/23: Continue treatment plan. 02/23: Increase Clozapine to 250 mg HS and continue 25 mg BID. 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 At 1st patient would not verbally talk to staff there are and only communicating via written communication. Patient treated with perphenazine titrated to 20 mg b.i.d. (may be error and meant daily as this is a very high dose). Reportedly patient some mild decrease in paranoid and delusional content and started verbally talking with treatment team, became less isolative and willing to walk the halls on the unit. -psychotic symptoms present for about 8 years That admission was the 3rd psychiatric hospitalization I spent minutes with the patient and/or on the patient floor today, greater than?50% of which was spent counseling/coordinating care. Reason for contiued inpatient stay Substantial Risk for: inability to function and rapid decompensation
[2022-02-24 16:09] VITALS: BP 116/75; PULSE 94
[2022-02-24] MEDS: cloZAPine 100 MG TABLET 250 MG PO (19:59)
[2022-02-25 06:00] VITALS: BP 112/72; PULSE 92; RESP 16; TEMP 36.7; O2SAT 97
[2022-02-25] MEDS: cloZAPine 25 MG TABLET PO ×2 (08:03→19:16)
--- NOTE | 2022-02-25 12:15 | P.PNPSI_ITS ---
Subjective Subjective Date of Service: 02/25/22 Reason For Visit: Paranoia Interim History: Patient seen and discussed. Remains delusional. No real change in symptoms. Hallucinations less prominent. Remains polite and in behavioral control. Isolative. Denies SI. Review of Systems Review of Systems Except for HPI Yes all other systems are reviewed and are negative Constitutional: Denies chills Cardiovascular: Denies chest pain and Denies dyspnea Respiratory: Denies dyspnea Gastrointestinal: Denies abdominal pain and Denies vomiting Mental Status Exam Mental Status Exam Narrative: Pt is alert and oriented; behavior is cooperative, friendly and calm; patient is not in distress; dressed in casual cloths with unkempt hair but adequate hygiene;? mood is described as the same ? affect more expressive; eye contact appropriate; Speech is normal rate, volume and prosody and not pressured; no psychomotor agitation/retardation present; thought process is goal directed; Thought content is on delusional interactions with Special attack project/DOD; otherwise pertinent to relevant topics; denies any SI/HI.? Auditory hallucinations present.? Patients insight and judgment are impaired Patient Appearance: Well Grooomed Patient Orientation: Person, Place and Situation Level of Consciousness: Awake Patient Behavior: Appropriate Mood Description: Flat and Apprehensive Affect Description: Withdrawn, Constricted and Apprehensive Speech Pattern: Impoverished and Monotone Memory Description: Episodic Impaired Diagnostics Vital Signs (24Hr): Vital Signs - 24 hr 02/24/22 16:09 02/25/22 06:00 Temperature 98.1 F Pulse Rate 94 92 Respiratory Rate 16 Blood Pressure 116/75 112/72 Pulse Oximetry 97 BMI result Body Mass Index 19.1 Labs Results: 02/06/22 08:27 01/19/22 07:03 Medications Medications Current Medications Acetaminophen (Acetaminophen 325 Mg Tablet) 650 mg PO Q6H PRN PRN Reason: Headache/Pain Mild Scale (1-3) Last Admin: 02/01/22 19:56 Dose: 650 mg Documented by: Al Hydroxide/Mg Hydroxide (Magnesium Hydrox/Alum Hydrox 30 Ml Oral.Susp) 30 ml PO Q6H PRN PRN Reason: Heartburn/Nausea Clozapine (Clozapine 25 Mg Tablet) 25 mg PO BID [facility] Last Admin: 02/25/22 08:03 Dose: 25 mg Documented by: Clozapine (Clozapine 100 Mg Tablet) 250 mg PO BEDTIME [facility] Last Admin: 02/24/22 19:59 Dose: 250 mg Documented by: Guaifenesin (Guaifenesin 100 Mg/5 Ml Liquid) 5 ml PO Q4H PRN PRN Reason: Cough Last Admin: 02/01/22 19:56 Dose: 5 ml Documented by: Hydroxyzine HCl (Hydroxyzine Hcl 25 Mg Tablet) 25 mg PO BEDTIME PRN PRN Reason: Anxiety Ibuprofen (Ibuprofen 600 Mg Tablet) 600 mg PO Q8H PRN PRN Reason: Pain, Mild (Pain Scale 1-3) Magnesium Hydroxide (Milk Of Magnesia 30 Ml Oral.Susp) 30 ml PO DAILY PRN PRN Reason: Constipation Trazodone HCl (Trazodone Hcl 50 Mg Tablet) 50 mg PO BEDTIME [facility] Last Admin: 02/24/22 15:50 Dose: Not Given Documented by: Allergies Allergies Allergy/AdvReac Type Severity Reaction Status Date / Time No Known Allergies Allergy Verified 01/18/22 17:46 Assessment & Plan Assessment & Plan (1) Schizoaffective disorder, depressive type: Status: Acute Code(s): F25.1 - Schizoaffective disorder, depressive type Plan HPI: Tomas is a 61 y.o. Male who carries a dx of schizoaffective disorder, depressive type, who presents for his 4th psychiatric hospitalization. [place] [facility] [place] via ambulance called by [place] Police due to pt writing a note to police stating that he is in a high level [employer] project. Once at the ED, Tomas complained of headaches, memory loss, hearing loss, and word retrieval issues, which he attributes to high level radio frequency satellites. No substance or alcohol use concerns. Formulation: Meets criteria for diagnosis of schizoaffective disorder (schizophrenia plus hx of depression). History shows that his symptoms have been prevalent for About past 12 years, which is an unusually late onset. No other contributory etiologies apparent including unremarkable brain MRI. Patient's symptoms have made him unable to function on his own and in need of inpatient treatment. Currently patient has no insight DX: Schizoaffective disorder depressed type. (Paranoid delusions +AH + history of intermittent depressive episodes) Current PLAN: Clozapine 25mg daily INCREASED to Clozapine 200mg qhs ANC on 02/20 is 3.3 Check ANC weekly QTc on 02/06 WNL -DISContinue Zyprexa 20mg qhs (zyprexa started on 01/30); no affect, even at max doses; given that the longer psychotic symptoms remained the hardly become to treat, will discontinue Zyprexa and start clozapine Q15 min safety checks, CV Monitor response to medications. Monitor for safety in the milieu. Discharge on stabilization. for day to day details...see below: HOSPITAL COURSE: 01/19/2022 Patient accepting Risperdal. Would do well with long-acting injectable. Unclear why patient has not had significant treatment over the past number of years. The collateral information from family he is asking we contact his stepfather. His 2 brothers states his no contact with. Patient does not have any children unclear how the patient has been living states he has over million dollars unclear if this is grandiose and delusional 01/20/2022 We would strongly recommend long-acting injectable. Contact family for additional information support unclear what other resources may be available 01/21/22: Increase risperdal to 2 mg BID, as pt has not had response to medication (risperdal started at [facility]) and appears psychotic, unable to care for self. Obtain [facility] discharge paperwork. 01/23 Remains delusional and without any insight. However patient said that headache pain is less today which will hopefully Indicates that Risperdal is having some positive affect. Will leave the current dose for now to see If further improvements can be made 01/28 Patient remains psychotic with auditory hallucinations and paranoid delusions -Risperdal 3 mg b.i.d. has not yet seem to reduce symptoms; will consider switching to another antipsychotic 01/30 DC Risperdal START Zyprexa patient does not seem to have symptom reduction on Risperdal 6 mg total daily dose; he also reports he did not notice perphenazine making any difference and commercial lines underwriter's review of [facility] notes indicate patient had a very similar presentation as he does currently on Risperdal. Patient agrees to switching antipsychotic medication. 01/31 remains delusional and with AH. Tolerating Zyprexa -titrate Zyprexa further. Given patient's age it is preferable to see if 10 mg can eventually reduce symptoms; however the longer patient remains psychotic the harder his psychosis will be to treat. Current literature shows significant evidence that once a medication is at therapeutic dose there is usually a reduction in symptoms when initiating an antipsychotic, within the first couple days. As there has yet to be any effect, it is thus very likely that he will eventually be titrated to at least 15 mg and since he denies any side effects at all will continue to titrate 02/03 remains psychotic with auditory hallucinations and delusions. Agrees with continued titration of Zyprexa 02/04 no change; continue tx; Influenza: resolved 02/06 Remains delusional with auditory hallucinations; patient gives history that He had paranoid delusions for the past 12 or 13 years. Agrees to change medications tomorrow if commercial lines underwriter thinks best 02/07 delusions/auditory hallucinations remain patient agrees to switching medications to clozapine, understands risk of agranulocytosis and agrees to weekly ANC blood checks. 02/08 No change in current treatment plan, denies SE on clozapine 02/11 perhaps some decrease in volume of AH, though they remain. Continue titration 02/13 Auditory hallucinations remain however they continued to decrease in volume to the point where sometimes patient cannot fully make them out which he says has never happened before and is encouraged by. Will continue at same dose for now. But will likely need to titrate further 02/18 Remains with auditory hallucinations but they continue to decrease and are now in discernible; remains without insight but amenable to increasing clozapine 02/21 no further change in symptoms; continue clozapine titration 02/23: Continue treatment plan. 02/24: Increase Clozapine to 250 mg HS and continue 25 mg BID. 02/25 Continue current plan Clozaril just increased. MED TRIals Perphenazine: not effective (tried at [facility]) Risperdal: not effective (tried at [place]) Zyprexa: no effect brain MRI with and without contrast (done at [facility] on 01/11/22): Impression: Normal MRI of the IACs Without and with contrast> Recent Psych hx: Galley Cook reviewed discharge summary from [facility] were patient was admitted on 12/12/2021 Same presentation, reporting he was part of a government to mind control program with associated AH and headaches. At 1st patient would not verbally talk to staff there are and only communicating via written communication. Patient treated with perphenazine titrated to 20 mg b.i.d. (may be error and meant daily as this is a very high dose). Reportedly patient some mild decrease in paranoid and delusional content and started verbally talking with treatment team, became less isolative and willing to walk the halls on the unit. -psychotic symptoms present for about 8 years That admission was the 3rd psychiatric hospitalization I spent minutes with the patient and/or on the patient floor today, greater than?50% of which was spent counseling/coordinating care. Reason for contiued inpatient stay Substantial Risk for: inability to function and rapid decompensation
[2022-02-25 18:53] VITALS: BP 117/74; PULSE 89
[2022-02-25] MEDS: cloZAPine 100 MG TABLET 250 MG PO (19:16)
[2022-02-26 06:30] VITALS: BP 135/80; PULSE 96; RESP 16; TEMP 36.1
[2022-02-26] MEDS: cloZAPine 25 MG TABLET PO (09:01)
[2022-02-26 18:00] VITALS: BP 112/73; PULSE 94; RESP 14; TEMP 37; O2SAT 96
[2022-02-26] MEDS: traZODone HCL 50 MG TABLET PO (21:25)
[2022-02-26] MEDS: cloZAPine 100 MG TABLET 300 MG PO (21:25)
--- NOTE | 2022-02-27 00:28 | P.PNPSI_ITS ---
Subjective Subjective Date of Service: 02/26/22 Reason For Visit: Paranoia Interim History: Patient had a meeting with respite today during which time he says he still needs to be able to lie in his bed 21/04 Due to headaches and dizziness from the electronics in his head. Respite wants patient to be able to engage. Also, patient has not showered for some time making him seem unlikely candidate for respite at this time. Patient is still delusional and still with auditory hallucinations which remain low but are persistent. Patient has no insight and remains debilitated because of delusional thoughts, Thinking that the electronics in his head interfere with his leaving the room. Of note Physiognomist discussed risks of DVT and PE. Patient says he Fully understands and make sure that throughout the day, he gets exercise and walks in the room. Mental Status Exam Mental Status Exam Narrative: Pt is alert and oriented; behavior is cooperative, friendly and calm; patient is not in distress; dressed in casual cloths with unkempt hair and declining hygiene;? mood is described as ok ? affect constricted, but less blunted and more expressive than on admission; eye contact appropriate; Speech is normal rate, volume and prosody and not pressured; no psychomotor agitation/retardation present; thought process is goal directed; Thought content is on delusional interactions with Special attack project/DOD; otherwise pertinent to relevant topics; denies any SI/HI.? Auditory hallucinations present.? Patients insight and judgment are impaired Diagnostics Vital Signs (24Hr): Vital Signs - 24 hr 02/26/22 06:30 02/26/22 18:00 Temperature 97 F 98.6 F Pulse Rate 96 94 Respiratory Rate 16 14 Blood Pressure 135/80 112/73 Pulse Oximetry 96 BMI result Body Mass Index 19.1 Labs Results: 02/06/22 08:27 01/19/22 07:03 Medications Medications Current Medications Acetaminophen (Acetaminophen 325 Mg Tablet) 650 mg PO Q6H PRN PRN Reason: Headache/Pain Mild Scale (1-3) Last Admin: 02/01/22 19:56 Dose: 650 mg Documented by: Al Hydroxide/Mg Hydroxide (Magnesium Hydrox/Alum Hydrox 30 Ml Oral.Susp) 30 ml PO Q6H PRN PRN Reason: Heartburn/Nausea Clozapine (Clozapine 100 Mg Tablet) 300 mg PO BEDTIME LOLA Last Admin: 02/26/22 21:25 Dose: 300 mg Documented by: Clozapine (Clozapine 25 Mg Tablet) 25 mg PO DAILY LOLA Guaifenesin (Guaifenesin 100 Mg/5 Ml Liquid) 5 ml PO Q4H PRN PRN Reason: Cough Last Admin: 02/01/22 19:56 Dose: 5 ml Documented by: Hydroxyzine HCl (Hydroxyzine Hcl 25 Mg Tablet) 25 mg PO BEDTIME PRN PRN Reason: Anxiety Ibuprofen (Ibuprofen 600 Mg Tablet) 600 mg PO Q8H PRN PRN Reason: Pain, Mild (Pain Scale 1-3) Magnesium Hydroxide (Milk Of Magnesia 30 Ml Oral.Susp) 30 ml PO DAILY PRN PRN Reason: Constipation Trazodone HCl (Trazodone Hcl 50 Mg Tablet) 50 mg PO BEDTIME LOLA Last Admin: 02/26/22 21:25 Dose: 50 mg Documented by: Allergies Allergies Allergy/AdvReac Type Severity Reaction Status Date / Time No Known Allergies Allergy Verified 01/18/22 17:46 Assessment & Plan Assessment & Plan (1) Schizoaffective disorder, depressive type: Status: Acute Code(s): F25.1 - Schizoaffective disorder, depressive type Plan HPI: Tomas is a 61 y.o. Male who carries a dx of schizoaffective disorder, depressive type, who presents for his 4th psychiatric hospitalization. He presented to the [facility] ED on 01/17/22 via ambulance called by [place] [employer] due to pt writing a note to police stating that he is in a high level [employer] project. Once at the ED, Tomas complained of headaches, memory loss, hearing loss, and word retrieval issues, which he attributes to high level radio frequency satellites. No substance or alcohol use concerns. Formulation: Meets criteria for diagnosis of schizoaffective disorder (schizophrenia plus hx of depression). History shows that his symptoms have been prevalent for About past 12 years, which is an unusually late onset. No other contributory etiologies apparent including unremarkable brain MRI. Patient's symptoms have made him unable to function on his own and in need of inpatient treatment. Currently patient has no insight. Patient's symptoms continue to render him u nable to function on his own at this time DX: Schizoaffective disorder depressed type. (Paranoid delusions +AH + history of intermittent depressive episodes) Current PLAN: Clozapine 25mg daily Clozapine 300mg qhs ANC on 02/20 is 3.3 Check ANC weekly QTc on 02/06 WNL -DISContinue Zyprexa 20mg qhs (zyprexa started on 01/30); no affect, even at max doses; given that the longer psychotic symptoms remained the hardly become to treat, will discontinue Zyprexa and start clozapine Q15 min safety checks, CV Monitor response to medications. Monitor for safety in the milieu. Discharge on stabilization. for day to day details...see below: HOSPITAL COURSE: 01/19/2022 Patient accepting Risperdal. Would do well with long-acting injectable. Unclear why patient has not had significant treatment over the past number of years. The collateral information from family he is asking we contact his stepfather. His 2 brothers states his no contact with. Patient does not have any children unclear how the patient has been living states he has over million dollars unclear if this is grandiose and delusional 01/20/2022 We would strongly recommend long-acting injectable. Contact family for additional information support unclear what other resources may be available 01/21/22: Increase risperdal to 2 mg BID, as pt has not had response to medication [place] [facility] [place] and appears psychotic, unable to care for self. Obtain [facility] [place] 01/23 Remains delusional and without any insight. However patient said that headache pain is less today which will hopefully Indicates that Risperdal is having some positive affect. Will leave the current dose for now to see If further improvements can be made 01/28 Patient remains psychotic with auditory hallucinations and paranoid delusions -Risperdal 3 mg b.i.d. has not yet seem to reduce symptoms; will consider switching to another antipsychotic 01/30 DC Risperdal START Zyprexa patient does not seem to have symptom reduction on Risperdal 6 mg total daily dose; he also reports he did not notice perphenazine making any difference and check writer salesperson's review of [facility] notes indicate patient had a very similar presentation as he does currently on Risperdal. Patient agrees to switching antipsychotic medication. 01/31 remains delusional and with AH. Tolerating Zyprexa -titrate Zyprexa further. Given patient's age it is preferable to see if 10 mg can eventually reduce symptoms; however the longer patient remains psychotic the harder his psychosis will be to treat. Current literature shows significant evidence that once a medication is at therapeutic dose there is usually a reduction in symptoms when initiating an antipsychotic, within the first couple days. As there has yet to be any effect, it is thus very likely that he will eventually be titrated to at least 15 mg and since he denies any side effects at all will continue to titrate 02/03 remains psychotic with auditory hallucinations and delusions. Agrees with continued titration of Zyprexa 02/04 no change; continue tx; Influenza: resolved 02/06 Remains delusional with auditory hallucinations; patient gives history that He had paranoid delusions for the past 12 or 13 years. Agrees to change medications tomorrow if check writer salesperson thinks best 02/07 delusions/auditory hallucinations remain patient agrees to switching medications to clozapine, understands risk of agranulocytosis and agrees to w antonio ANC blood checks. 02/08 No change in current treatment plan, denies SE on clozapine 02/11 perhaps some decrease in volume of AH, though they remain. Continue titration 02/13 Auditory hallucinations remain however they continued to decrease in volume to the point where sometimes patient cannot fully make them out which he says has never happened before and is encouraged by. Will continue at same dose for now. But will likely need to titrate further 02/18 Remains with auditory hallucinations but they continue to decrease and are now in discernible; remains without insight but amenable to increasing clozapine 02/21 no further change in symptoms; continue clozapine titration says he still needs to be able to lie in his bed 24 due to headaches and dizziness from the electronics in his head; not showered and hardly leaves room for same reasons (delusional thoughts/electronics interfer); still AH, lowered but persistent. Patient's symptoms continue to render him unable to function on his own at this time MED TRIals Perphenazine: not effective (tried at [facility]) Risperdal: not effective (tried at [place]) Zyprexa: no effect brain MRI with and without contrast (done at [facility] on 01/11/22): Impression: Normal MRI of the IACs Without and with contrast> Recent Psych hx: Physiognomist reviewed discharge summary from [facility] were patient was admitted on 12/12/2021 Same presentation, reporting he was part of a government to mind control program with associated AH and headaches. At 1st patient would not verbally talk to staff there are and only communicating via written communication. Patient treated with perphenazine titrated to 20 mg b.i.d. (may be error and meant daily as this is a very high dose). Reportedly patient some mild decrease in paranoid and delusional content and started verbally talking with treatment team, became less isolative and willing to walk the halls on the unit. -psychotic symptoms present for about 8 years That admission was the 3rd psychiatric hospitalization I spent minutes with the patient and/or on the patient floor today, greater than?50% of which was spent counseling/coordinating care. Patient educated on: diagnosis Informed Consent: does not understand Reason for contiued inpatient stay Substantial Risk for: inability to function
[2022-02-27 06:00] VITALS: BP 110/73; PULSE 89; RESP 16; TEMP 36.9; O2SAT 96
[2022-02-27] MEDS: cloZAPine 25 MG TABLET PO ×2 (08:32→20:37)
[2022-02-27 09:31] LABS: Neut%MD 65.9 %; Neutrophils Absolute Auto 4.7 x10*3/uL (2.0-8.3); WBCANC 7.1 X10*3/uL
--- NOTE | 2022-02-27 09:42 | P.PNPSI_ITS ---
Subjective Subjective Date of Service: 02/27/22 Reason For Visit: Paranoia Interim History: Patient says that he remains the same and still hopes of product will and but feels dizzy, and headache unless he lies flat. He did say he will try to bathe today. Creative Designer asked about how he got food when he was living in [place] and he said it was all through room service. He says he could never make it to a grocery store at this time Mental Status Exam Mental Status Exam Narrative: Pt is alert and oriented; behavior is cooperative, friendly and calm; patient is not in distress; dressed in casual cloths with unkempt hair and declining hygiene;? mood is described as ok ? affect constricted, but less blunted and more expressive than on admission; eye contact appropriate; Speech is normal rate, volume and prosody and not pressured; no psychomotor agitation/retardation present; thought process is goal directed; Thought content is on delusional interactions with Special attack project/DOD; otherwise pertinent to relevant topics; denies any SI/HI.? Auditory hallucinations present.? Patients insight and judgment are impaired Diagnostics Vital Signs (24Hr): Vital Signs - 24 hr 02/26/22 18:00 02/27/22 06:00 Temperature 98.6 F 98.5 F Pulse Rate 94 89 Respiratory Rate 14 16 Blood Pressure 112/73 110/73 Pulse Oximetry 96 96 BMI result Body Mass Index 19.1 Labs Results: 02/06/22 08:27 01/19/22 07:03 Labs: Laboratory Results - last 48 hr 02/27/22 08:32 Absolute Neuts (auto) 4.7 Medications Medications Current Medications Acetaminophen (Acetaminophen 325 Mg Tablet) 650 mg PO Q6H PRN PRN Reason: Headache/Pain Mild Scale (1-3) Last Admin: 02/01/22 19:56 Dose: 650 mg Documented by: Al Hydroxide/Mg Hydroxide (Magnesium Hydrox/Alum Hydrox 30 Ml Oral.Susp) 30 ml PO Q6H PRN PRN Reason: Heartburn/Nausea Clozapine (Clozapine 100 Mg Tablet) 300 mg PO BEDTIME LOLA Last Admin: 02/26/22 21:25 Dose: 300 mg Documented by: Clozapine (Clozapine 25 Mg Tablet) 25 mg PO DAILY LOLA Last Admin: 02/27/22 08:32 Dose: 25 mg Documented by: Guaifenesin (Guaifenesin 100 Mg/5 Ml Liquid) 5 ml PO Q4H PRN PRN Reason: Cough Last Admin: 02/01/22 19:56 Dose: 5 ml Documented by: Hydroxyzine HCl (Hydroxyzine Hcl 25 Mg Tablet) 25 mg PO BEDTIME PRN PRN Reason: Anxiety Ibuprofen (Ibuprofen 600 Mg Tablet) 600 mg PO Q8H PRN PRN Reason: Pain, Mild (Pain Scale 1-3) Magnesium Hydroxide (Milk Of Magnesia 30 Ml Oral.Susp) 30 ml PO DAILY PRN PRN Reason: Constipation Trazodone HCl (Trazodone Hcl 50 Mg Tablet) 50 mg PO BEDTIME LOLA Last Admin: 02/26/22 21:25 Dose: 50 mg Documented by: Allergies Allergies Allergy/AdvReac Type Severity Reaction Status Date / Time No Known Allergies Allergy Verified 01/18/22 17:46 Assessment & Plan Assessment & Plan (1) Schizoaffective disorder, depressive type: Status: Acute Code(s): F25.1 - Schizoaffective disorder, depressive type Plan HPI: Tomas is a 61 y.o. Male who carries a dx of schizoaffective disorder, depressive type, who presents for his 4th psychiatric hospitalization. He presented to the [facility] ED on 01/17/22 via ambulance called by [place] [employer] due to pt writing a note to police stating that he is in a high level [employer] project. Once at the ED, Tomas complained of headaches, memory loss, hearing loss, and word retrieval issues, which he attributes to high level radio frequency satellites. No substance or alcohol use concerns. Formulation: Meets criteria for diagnosis of schizoaffective disorder (schizophrenia plus hx of depression). History shows that his symptoms have been prevalent for About past 12 years, which is an unusually late onset. No other contributory etiologies apparent including unremarkable brain MRI. Patient's symptoms have made him unable to function on his own and in need of inpatient treatment. Currently patient has no insight. Patient's symptoms continue to render him unable to function on his own at this time DX: Schizoaffective disorder depressed type. (Paranoid delusions +AH + history of intermittent depressive episodes) Current PLAN: Clozapine 25mg daily Clozapine 325mg qhs ANC on 02/20 is 3.3 Check ANC weekly QTc on 02/06 WNL -DISContinue Zyprexa 20mg qhs (zyprexa started on 01/30); no affect, even at max doses; given that the longer psychotic symptoms remained the hardly become to treat, will discontinue Zyprexa and start clozapine Q15 min safety checks, CV Monitor response to medications. Monitor for safety in the milieu. Discharge on stabilization. for day to day details...see below: HOSPITAL COURSE: 01/19/2022 Patient accepting Risperdal. Would do well with long-acting injectable. Unclear why patient has not had significant treatment over the past number of years. The collateral information from family he is asking we contact his stepfather. His 2 brothers states his no contact with. Patient does not have any children unclear how the patient has been living states he has over million dollars unclear if this is grandiose and delusional 01/20/2022 We would strongly recommend long-acting injectable. Contact family for additional information support unclear what other resources may be available 01/21/22: Increase risperdal to 2 mg BID, as pt has not had response to medication (risperdal started at [facility]) and appears psychotic, unable to care for self. Obtain [facility] discharge paperwork. 01/23 Remains delusional and without any insight. However patient said that headache pain is less today which will hopefully Indicates that Risperdal is having some positive affect. Will leave the current dose for now to see If further improvements can be made 01/28 Patient remains psychotic with auditory hallucinations and paranoid delusions -Risperdal 3 mg b.i.d. has not yet seem to reduce symptoms; will consider switching to another antipsychotic 01/30 DC Risperdal START Zyprexa patient does not seem to have symptom reduction on Risperdal 6 mg total daily dose; he also reports he did not notice perphenazine making any difference and va underwriter's review of [facility] notes indicate patient had a very similar presentation as he does currently on Risperdal. Patient agrees to switching antipsychotic medication. 01/31 remains delusional and with AH. Tolerating Zyprexa -titrate Zyprexa further. Given patient's age it is preferable to see if 10 mg can eventually reduce symptoms; however the longer patient remains psychotic the harder his psychosis will be to treat. Current literature shows significant evidence that once a medication is at therapeutic dose there is usually a reduction in symptoms when initiating an antipsychotic, within the first couple days. As there has yet to be any effect, it is thus very likely that he will eventually be titrated to at least 15 mg and since he denies any side effects at all will continue to titrate 02/03 remains psychotic with auditory hallucinations and delusions. Agrees with continued titration of Zyprexa 02/04 no change; continue tx; Influenza: resolved 02/06 Remains delusional with auditory hallucinations; patient gives history that He had paranoid delusions for the past 12 or 13 years. Agrees to change medications tomorrow if va underwriter thinks best 02/07 delusions/auditory hallucinations remain patient agrees to switching medications to clozapine, understands risk of agranulocytosis and agrees to weekly ANC blood checks. 02/08 No change in current treatment plan, denies SE on clozapine 02/11 perhaps some decrease in volume of AH, though they remain. Continue titration 02/13 Auditory hallucinations remain however they continued to decrease in volume to the point where sometimes patient cannot fully make them out which he says has never happened before and is encouraged by. Will continue at same dose for now. But will likely need to titrate further 02/18 Remains with auditory hallucinations but they continue to decrease and are now in discernible; remains without insight but amenable to increasing clozapine 02/21 no further change in symptoms; continue clozapine titration says he still needs to be able to lie in his bed 21/04 due to headaches and dizziness from the electronics in his head; not showered and hardly leaves room for same reasons (delusional thoughts/electronics interfer); still AH, lowered but persistent. Patient's symptoms continue to render him unable to fu nction on his own at this time 02/27 no change MED TRIals Perphenazine: not effective (tried at [facility]) Risperdal: not effective (tried at [place]) Zyprexa: no effect brain MRI with and without contrast (done at [facility] on 01/11/22): Impression: Normal MRI of the IACs Without and with contrast> Recent Psych hx: Creative Designer reviewed discharge summary from [facility] were patient was admitted on 12/12/2021 Same presentation, reporting he was part of a government to mind control program with associated AH and headaches. At 1st patient would not verbally talk to staff there are and only communicating via written communication. Patient treated with perphenazine titrated to 20 mg b.i.d. (may be error and meant daily as this is a very high dose). Reportedly patient some mild decrease in paranoid and delusional content and started verbally talking with treatment team, became less isolative and willing to walk the halls on the unit. -psychotic symptoms present for about 8 years That admission was the 3rd psychiatric hospitalization I spent minutes with the patient and/or on the patient floor today, greater than?50% of which was spent counseling/coordinating care. Reason for contiued inpatient stay Substantial Risk for: inability to function and rapid decompensation
[2022-02-27 18:00] VITALS: BP 111/71; PULSE 87
[2022-02-27] MEDS: traZODone HCL 50 MG TABLET PO (20:37)
[2022-02-27] MEDS: cloZAPine 100 MG TABLET 300 MG PO (20:37)
[2022-02-28 06:00] VITALS: BP 134/73; PULSE 80; TEMP 36.9; O2SAT 98
[2022-02-28 07:00] VITALS: BMI 19.3
[2022-02-28] MEDS: cloZAPine 25 MG TABLET PO (08:25)
[2022-02-28 16:47] VITALS: BP 111/72; PULSE 96
--- NOTE | 2022-02-28 17:08 | HO.PSYCHPN ---
Subjective Subjective Date of Service: 02/28/22 Reason For Visit: Paranoia Interim History: Patient remains delusional and with auditory hallucinations. Patient's functioning remains significantly effected and limit his ability to attend ADLs, delusionally thinking that the electronics implanted in his brain are causing him to feel dizzy or have headaches and that he needs to lie down flat on his back for most of the day. To this end patient says there is no way he could go shopping for himself or leave the house. He says he feels terrible and that it is awful that he has to remain in his room the whole time and he feels like a present her. However he says he has no choice until the government project is completed and he is no longer a part of it. He continues to be hopeful that the project will end soon. He agrees to push himself to be out of his room more and was able to tolerate taking a shower yesterday for a limited amount of time. Mental Status Exam Mental Status Exam Narrative: Pt is alert and oriented; behavior is cooperative, friendly and calm; dressed in hospital cloths with unkempt hair and improved hygiene;? mood is described as ok... ? affect constricted, but less blunted and more expressive than on admission; eye contact appropriate; Speech is normal rate, volume and prosody and not pressured; no psychomotor agitation/retardation present; thought process is goal directed; Thought content is on delusional interactions with Special attack project/DOD; otherwise pertinent to relevant topics; denies any SI/HI.? Auditory hallucinations present.? Patients insight and judgment are impaired Diagnostics Vital Signs (24Hr): Vital Signs - 24 hr 02/27/22 18:00 02/28/22 06:00 02/28/22 16:47 Temperature 98.5 F Pulse Rate 87 80 96 Blood Pressure 111/71 134/73 111/72 Pulse Oximetry 98 BMI result Body Mass Index 19.3 Labs Results: 02/06/22 08:27 01/19/22 07:03 Labs: Laboratory Results - last 48 hr 02/27/22 08:32 Absolute Neuts (auto) 4.7 Medications Medications Current Medications Acetaminophen (Acetaminophen 325 Mg Tablet) 650 mg PO Q6H PRN PRN Reason: Headache/Pain Mild Scale (1-3) Last Admin: 02/01/22 19:56 Dose: 650 mg Documented by: Al Hydroxide/Mg Hydroxide (Magnesium Hydrox/Alum Hydrox 30 Ml Oral.Susp) 30 ml PO Q6H PRN PRN Reason: Heartburn/Nausea Clozapine (Clozapine 25 Mg Tablet) 25 mg PO DAILY [facility] Last Admin: 02/28/22 08:25 Dose: 25 mg Documented by: Clozapine (Clozapine 100 Mg Tablet) 300 mg PO BEDTIME LOLA Last Admin: 02/27/22 20:37 Dose: 300 mg Documented by: Clozapine (Clozapine 25 Mg Tablet) 50 mg PO BEDTIME LOLA Guaifenesin (Guaifenesin 100 Mg/5 Ml Liquid) 5 ml PO Q4H PRN PRN Reason: Cough Last Admin: 02/01/22 19:56 Dose: 5 ml Documented by: Hydroxyzine HCl (Hydroxyzine Hcl 25 Mg Tablet) 25 mg PO BEDTIME PRN PRN Reason: Anxiety Ibuprofen (Ibuprofen 600 Mg Tablet) 600 mg PO Q8H PRN PRN Reason: Pain, Mild (Pain Scale 1-3) Magnesium Hydroxide (Milk Of Magnesia 30 Ml Oral.Susp) 30 ml PO DAILY PRN PRN Reason: Constipation Trazodone HCl (Trazodone Hcl 50 Mg Tablet) 50 mg PO BEDTIME [facility] Last Admin: 02/27/22 20:37 Dose: 50 mg Documented by: Allergies Allergies Allergy/AdvReac Type Severity Reaction Status Date / Time No Known Allergies Allergy Verified 01/18/22 17:46 Assessment & Plan Assessment & Plan (1) Schizoaffective disorder, depressive type: Status: Acute Code(s): F25.1 - Schizoaffective disorder, depressive type Plan HPI: Tomas is a 61 y.o. Male who carries a dx of schizoaffective disorder, depressive type, who presents for his 4th psychiatric hospitalization. He presented to the [facility] ED on 01/17/22 via ambulance called by [place] [employer] due to pt writing a note to police stating that he is in a high level [employer] project. Once at the ED, Tomas complained of headaches, memory loss, hearing loss, and word retrieval issues, which he attributes to high level radio frequency satellites. No substance or alcohol use concerns. Formulation: Meets criteria for diagnosis of schizoaffective disorder (schizophrenia plus hx of depression). History shows that his symptoms have been prevalent for About past 12 years, which is an unusually late onset. No other contributory etiologies apparent including unremarkable brain MRI. Patient's symptoms have made him unable to function on his own and in need of inpatient treatment. Currently patient has no insight. Patient's symptoms continue to render him unable to function on his own at this time and he spends most of his day lying down on the ground, feeling electronics in his head keep him unable to sit up, walk around or do much else. Clozapine has been the only medication that has reduced his positive symptoms. At this time there is no other medication regimen plan other than to keep increasing his clozapine as he is still at a low dose. Will continue to titrated as quickly as patient can tolerate. DX: Schizoaffective disorder depressed type. (Paranoid delusions +AH + history of intermittent depressive episodes) Current PLAN: Clozapine 25mg daily INCREASE to Clozapine 350mg qhs ANC on 02/20 is 3.3 Check ANC weekly QTc on 02/06 WNL -DISContinue Zyprexa 20mg qhs (zyprexa started on 01/30); no affect, even at max doses; given that the longer psychotic symptoms remained the hardly become to treat, will discontinue Zyprexa and start clozapine Q15 min safety checks, CV Monitor response to medications. Monitor for safety in the milieu. Discharge on stabilization. for day to day details...see below: HOSPITAL COURSE: 01/19/2022 Patient accepting Risperdal. Would do well with long-acting injectable. Unclear why patient has not had significant treatment over the past number of years. The collateral information from family he is asking we contact his stepfather. His 2 brothers states his no contact with. Patient does not have any children unclear how the patient has been living states he has over million dollars unclear if this is grandiose and delusional 01/20/2022 We would strongly recommend long-acting injectable. Contact family for additional information support unclear what other resources may be available 01/21/22: Increase risperdal to 2 mg BID, as pt has not had response to medication (risperdal started at [facility]) and appears psychotic, unable to care for self. Obtain [facility] discharge paperwork. 01/23 Remains delusional and without any insight. However patient said that headache pain is less today which will hopefully Indicates that Risperdal is having some positive affect. Will leave the current dose for now to see If further improvements can be made 01/28 Patient remains psychotic with auditory hallucinations and paranoid delusions -Risperdal 3 mg b.i.d. has not yet seem to reduce symptoms; will consider switching to another antipsychotic 01/30 DC Risperdal START Zyprexa patient does not seem to have symptom reduction on Risperdal 6 mg total daily dose; he also reports he did not notice perphenazine making any difference and content writer's review of [facility] notes indicate patient had a very similar presentation as he does currently on Risperdal. Patient agrees to switching antipsychotic medication. 01/31 remains delusional and with AH. Tolerating Zyprexa -titrate Zyprexa further. Given patient's age it is preferable to see if 10 mg can eventually reduce symptoms; however the longer patient remains psychotic the harder his psychosis will be to treat. Current literature shows significant evidence that once a medication is at therapeutic dose there is usually a reduction in symptoms when initiating an antipsychotic, within the first couple days. As there has yet to be any effect, it is thus very likely that he will eventually be titrated to at least 15 mg and since he denies any side effects at all will continue to titrate 02/03 remains psychotic with auditory hallucinations and delusions. Agrees with continued titration of Zyprexa 02/04 no change; continue tx; Influenza: resolved 02/06 Remains delusional with auditory hallucinations; patient gives history that He had paranoid delusions for the past 12 or 13 years. Agrees to change medications tomorrow if content writer thinks best 02/07 delusions/auditory hallucinations remain patient agrees to switching medications to clozapine, understands risk of agranulocytosis and agrees to weekly ANC blood checks. 02/08 No change in current treatment plan, denies SE on clozapine 02/11 perhaps some decrease in volume of AH, though they remain. Continue titration 02/13 Auditory hallucinations remain however they continued to decrease in volume to the point where sometimes patient cannot fully make them out which he says has never happened before and is encouraged by. Will continue at same dose for now. But will likely need to titrate further 02/18 Remains with auditory hallucinations but they continue to decrease and are now in discernible; remains without insight but amenable to increasing clozapine 02/21 no further change in symptoms; continue clozapine titration says he still needs to be able to lie in his bed 21/04 due to headaches and dizziness from the electronics in his head; not showered and hardly leaves room for same reasons (delusional thoughts/electronics interfer); still AH, lowered but persistent. 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 At 1st patient would not verbally talk to staff there are and only communicating via written communication. Patient treated with perphenazine titrated to 20 mg b.i.d. (may be error and meant daily as this is a very high dose). Reportedly patient some mild decrease in paranoid and delusional content and started verbally talking with treatment team, became less isolative and willing to walk the halls on the unit. -psychotic symptoms present for about 8 years That admission was the 3rd psychiatric hospitalization I spent minutes with the patient and/or on the patient floor today, greater than?50% of which was spent counseling/coordinating care. Patient educated on: diagnosis and medication risk/benefits Informed Consent: does not understand and further education needed Reason for contiued inpatient stay Substantial Risk for: inability to function and rapid decompensation
[2022-02-28] MEDS: cloZAPine 100 MG TABLET 300 MG PO (20:20)
[2022-02-28] MEDS: cloZAPine 25 MG TABLET 50 MG PO (20:21)
[2022-03-01 06:00] VITALS: BP 131/78; PULSE 91; RESP 14; TEMP 36.6; O2SAT 98
[2022-03-01] MEDS: cloZAPine 25 MG TABLET PO (08:45)
--- NOTE | 2022-03-01 14:55 | PC.NURSE ---
Pt participated on [facility] screen on this date, scored 21/30, indicating cognition is not within normal limits. Nurse and MD made aware.
--- NOTE | 2022-03-01 17:18 | HO.PSYCHPN ---
Subjective Subjective Date of Service: 03/01/22 Reason For Visit: Paranoia Interim History: Patient reports feeling better today. He was actually seen walking the hallway. He says that the voices are almost inaudible. He also says that his head feels hollow and he thinks that some of the electronics that were implanted are somehow absent leaving what he experiences as a hollow space. To this end, he feels less of a headache and less dizzy. Patient is cautiously optimistic that this represents the end of his involvement in the project. He says they are still like trauma in his head and at those particular places he intermittently gets a headache but otherwise is feeling better. He agrees to further titration of clozapine Mental Status Exam Mental Status Exam Narrative: Pt is alert and oriented; behavior is cooperative, friendly and calm; dressed in hospital cloths with unkempt hair and improved hygiene;? mood is described as little better... ? affect congruent, not blunted and more expressive; eye contact appropriate; Speech is normal rate, volume and prosody and not pressured; no psychomotor agitation/retardation present; thought process is goal directed and linear; Thought content is on delusional interactions with Special attack project/DOD; otherwise pertinent to relevant topics; denies any SI/HI.? Auditory hallucinations present but significantly lower.? Patients insight and judgment are impaired Diagnostics Vital Signs (24Hr): Vital Signs - 24 hr 03/01/22 06:00 Temperature 98 F Pulse Rate 91 Respiratory Rate 14 Blood Pressure 131/78 Pulse Oximetry 98 BMI result Body Mass Index 19.3 Labs Results: 02/06/22 08:27 01/19/22 07:03 Medications Medications Current Medications Acetaminophen (Acetaminophen 325 Mg Tablet) 650 mg PO Q6H PRN PRN Reason: Headache/Pain Mild Scale (1-3) Last Admin: 02/01/22 19:56 Dose: 650 mg Documented by: Al Hydroxide/Mg Hydroxide (Magnesium Hydrox/Alum Hydrox 30 Ml Oral.Susp) 30 ml PO Q6H PRN PRN Reason: Heartburn/Nausea Clozapine (Clozapine 25 Mg Tablet) 25 mg PO DAILY [facility] Last Admin: 03/01/22 08:45 Dose: 25 mg Documented by: Clozapine (Clozapine 100 Mg Tablet) 300 mg PO BEDTIME LOLA Last Admin: 02/28/22 20:20 Dose: 300 mg Documented by: Guaifenesin (Guaifenesin 100 Mg/5 Ml Liquid) 5 ml PO Q4H PRN PRN Reason: Cough Last Admin: 02/01/22 19:56 Dose: 5 ml Documented by: Hydroxyzine HCl (Hydroxyzine Hcl 25 Mg Tablet) 25 mg PO BEDTIME PRN PRN Reason: Anxiety Ibuprofen (Ibuprofen 600 Mg Tablet) 600 mg PO Q8H PRN PRN Reason: Pain, Mild (Pain Scale 1-3) Magnesium Hydroxide (Milk Of Magnesia 30 Ml Oral.Susp) 30 ml PO DAILY PRN PRN Reason: Constipation Trazodone HCl (Trazodone Hcl 50 Mg Tablet) 50 mg PO BEDTIME LOLA Last Admin: 02/28/22 20:37 Dose: Not Given Documented by: Allergies Allergies Allergy/AdvReac Type Severity Reaction Status Date / Time No Known Allergies Allergy Verified 01/18/22 17:46 Assessment & Plan Assessment & Plan (1) Schizoaffective disorder, depressive type: Status: Acute Code(s): F25.1 - Schizoaffective disorder, depressive type Plan HPI: Tomas is a 61 y.o. Male who carries a dx of schizoaffective disorder, depressive type, who presents for his 4th psychiatric hospitalization. He presented to the [facility] ED on 01/17/22 via ambulance called by [place] [employer] due to pt writing a note to police stating that he is in a high level [employer] project. Once at the ED, Tomas complained of headaches, memory loss, hearing loss, and word retrieval issues, which he attributes to high level radio frequency satellites. No substance or alcohol use concerns. Formulation: Meets criteria for diagnosis of schizoaffective disorder (schizophrenia plus hx of depression). History shows that his symptoms have been prevalent for About past 12 years, which is an unusually late onset. No other contributory etiologies apparent including unremarkable brain MRI. Patient's symptoms have made him unable to function on his own and in need of inpatient treatment. Currently patient has no insight. Patient's symptoms continue to render him unable to function on his own at this time DX: Schizoaffective disorder depressed type. (Paranoid delusions +AH + history of intermittent depressive episodes) Current PLAN: Clozapine 25mg daily INCREASED to Clozapine 375mg qhs ANC on 02/27 4.7 Check ANC weekly QTc on 02/06 WNL -DISContinue Zyprexa 20mg qhs (zyprexa started on 01/30); no affect, even at max doses; given that the longer psychotic symptoms remained the hardly become to treat, will discontinue Zyprexa and start clozapine Q15 min safety checks, CV Monitor response to medications. Monitor for safety in the milieu. Discharge on stabilization. for day to day details...see below: HOSPITAL COURSE: 01/19/2022 Patient accepting Risperdal. Would do well with long-acting injectable. Unclear why patient has not had significant treatment over the past number of years. The collateral information from family he is asking we contact his stepfather. His 2 brothers states his no contact with. Patient does not have any children unclear how the patient has been living states he has over million dollars unclear if this is grandiose and delusional 01/20/2022 We would strongly recommend long-acting injectable. Contact family for additional information support unclear what other resources may be available 01/21/22: Increase risperdal to 2 mg BID, as pt has not had response to medication (risperdal started at [facility]) and appears psychotic, unable to care for self. Obtain [facility] discharge paperwork. 01/23 Remains delusional and without any insight. However patient said that headache pain is less today which will hopefully Indicates that Risperdal is having some positive affect. Will leave the current dose for now to see If further improvements can be made 01/28 Patient remains psychotic with auditory hallucinations and paranoid delusions -Risperdal 3 mg b.i.d. has not yet seem to reduce symptoms; will consider switching to another antipsychotic 01/30 DC Risperdal START Zyprexa patient does not seem to have symptom reduction on Risperdal 6 mg total daily dose; he also reports he did not notice perphenazine making any difference and remote mortgage underwriter's review of [facility] notes indicate patient had a very similar presentation as he does currently on Risperdal. Patient agrees to switching antipsychotic medication. 01/31 remains delusional and with AH. Tolerating Zyprexa -titrate Zyprexa further. Given patient's age it is preferable to see if 10 mg can eventually reduce symptoms; however the longer patient remains psychotic the harder his psychosis will be to treat. Current literature shows significant evidence that once a medication is at therapeutic dose there is usually a reduction in symptoms when initiating an antipsychotic, within the first couple days. As there has yet to be any effect, it is thus very likely that he will eventually be titrated to at least 15 mg and since he denies any side effects at all will continue to titrate 02/03 remains psychotic with auditory hallucinations and delusions. Agrees with continued titration of Zyprexa 02/04 no change; continue tx; Influenza: resolved 02/06 Remains delusional with auditory hallucinations; patient gives history that He had paranoid delusions for the past 12 or 13 years. Agrees to change medications tomorrow if remote mortgage underwriter thinks best 02/07 delusions/auditory hallucinations remain patient agrees to switching medications to clozapine, understands risk of agranulocytosis and agrees to weekly ANC blood checks. 02/08 No change in current treatment plan, denies SE on clozapine 02/11 perhaps some decrease in volume of AH, though they remain. Continue titration 02/13 Auditory hallucinations remain however they continued to decrease in volume to the point where sometimes patient cannot fully make them out which he says has never happened before and is encouraged by. Will continue at same dose for now. But will likely need to titrate further 02/18 Remains with auditory hallucinations but they continue to decrease and are now in discernible; remains without insight but amenable to increasing clozapine 02/21 no further change in symptoms; continue clozapine titration says he still needs to be able to lie in his bed 21/04 due to headaches and dizziness from the electronics in his head; not showered and hardly leaves room for same reasons (delusional thoughts/electronics interfer); still AH, lowered but persistent. Patient's symptoms continue to render him unable to function on his own at this time 02/27 no change 03/01 some further improvement and patient says he is feeling better evidenced by him walking the halls, with less headache and feeling less dizzy. He surmizes that some of the electronics in his head are now removed which is relieving symptoms. He remains without insight that this is due to a psychiatric illness but is pleased with feeling overall better. Denies any medication side effect and agrees to further titration which remote mortgage underwriter believes is warranted given his continued symptoms and complete lack of insight MED TRIals Perphenazine: not effective (tried at [facility]) Risperdal: not effective (tried at [place]) Zyprexa: no effect brain MRI with and without contrast (done at [facility] on 01/11/22): Impression: Normal MRI of the IACs Without and with contrast> Recent Psych hx: Chief Juvenile Probation Officer reviewed discharge summary from [facility] were patient was admitted on 12/12/2021 Same presentation, reporting he was part of a government to mind control program with associated AH and headaches. At 1st patient would not verbally talk to staff there are and only communicating via written communication. Patient treated with perphenazine titrated to 20 mg b.i.d. (may be error and meant daily as this is a very high dose). Reportedly patient some mild decrease in paranoid and delusional content and started verbally talking with treatment team, became less isolative and willing to walk the halls on the unit. -psychotic symptoms present for about 8 years That admission was the 3rd psychiatric hospitalization I spent minutes with the patient and/or on the patient floor today, greater than?50% of which was spent counseling/coordinating care. Patient educated on: diagnosis Informed Consent: does not understand Reason for contiued inpatient stay Substantial Risk for: inability to function and rapid decompensation
[2022-03-01 19:55] VITALS: BP 113/74; PULSE 96
[2022-03-01] MEDS: cloZAPine 25 MG TABLET 75 MG PO (20:19)
[2022-03-01] MEDS: cloZAPine 100 MG TABLET 300 MG PO (20:19)
[2022-03-02 06:58] VITALS: BP 122/76; PULSE 97; RESP 18; TEMP 36.6; O2SAT 96
[2022-03-02] MEDS: cloZAPine 25 MG TABLET PO (08:36)
[2022-03-02 16:00] VITALS: BP 121/77; PULSE 98; TEMP 37.1; O2SAT 96
--- NOTE | 2022-03-02 16:48 | P.PNPSI_ITS ---
Subjective Subjective Date of Service: 03/02/22 Reason For Visit: Paranoia Interim History: Tomas reports electronic waves have caused vertigo, dizziness and headaches. He reports head pain 3-5 and memory loss due to experiments being done. He presents with minimal insight and fixed beliefs/delusions. He relates symptoms to a [employer] project and believes this service writer advisor has extensive information on this project. Denies medication SE, reports he is feeling comfortable and safe on the unit. Medication Compliance: Yes Side effects from medications: No Attending Groups: No Review of Systems Acute medical concerns: No Medical Review of Systems: unchanged Mental Status Exam Mental Status Exam Patient Appearance: Appropriate Patient Orientation: Person and Place Level of Consciousness: Alert Patient Behavior: Talkative, Cooperative, Passive, Suspicious and Good Eye Contact Mood Description: Blunted Affect Description: Blunted Patient Cognition Impaired: No Ability to Follow Directions: Good Speech Pattern: Spontaneous Speech Memory Description: Episodic Impaired Hallucinations: None (denies) Delusions: Being Controlled, Paranoid Ideation and Present Perceptual Disturbances: Derealization Thought Process: Illogical Thought Content: positive for Perseveration and positive for Preoccupation Judgement: Fair Diagnostics Vital Signs (24Hr): Vital Signs - 24 hr 03/01/22 19:55 03/02/22 06:58 03/02/22 16:00 Temperature 97.8 F 98.8 F Pulse Rate 96 97 98 Respiratory Rate 18 Blood Pressure 113/74 122/76 121/77 Pulse Oximetry 96 96 BMI result Body Mass Index 19.3 Labs Results: 02/06/22 08:27 01/19/22 07:03 Medications Medications Current Medications Acetaminophen (Acetaminophen 325 Mg Tablet) 650 mg PO Q6H PRN PRN Reason: Headache/Pain Mild Scale (1-3) Last Admin: 02/01/22 19:56 Dose: 650 mg Documented by: Al Hydroxide/Mg Hydroxide (Magnesium Hydrox/Alum Hydrox 30 Ml Oral.Susp) 30 ml PO Q6H PRN PRN Reason: Heartburn/Nausea Clozapine (Clozapine 25 Mg Tablet) 25 mg PO DAILY LOLA Last Admin: 03/02/22 08:36 Dose: 25 mg Documented by: Clozapine (Clozapine 100 Mg Tablet) 300 mg PO BEDTIME LOLA Last Admin: 03/01/22 20:19 Dose: 300 mg Documented by: Clozapine (Clozapine 25 Mg Tablet) 75 mg PO BEDTIME LOLA Last Admin: 03/01/22 20:19 Dose: 75 mg Documented by: Guaifenesin (Guaifenesin 100 Mg/5 Ml Liquid) 5 ml PO Q4H PRN PRN Reason: Cough Last Admin: 02/01/22 19:56 Dose: 5 ml Documented by: Hydroxyzine HCl (Hydroxyzine Hcl 25 Mg Tablet) 25 mg PO BEDTIME PRN PRN Reason: Anxiety Ibuprofen (Ibuprofen 600 Mg Tablet) 600 mg PO Q8H PRN PRN Reason: Pain, Mild (Pain Scale 1-3) Magnesium Hydroxide (Milk Of Magnesia 30 Ml Oral.Susp) 30 ml PO DAILY PRN PRN Reason: Constipation Trazodone HCl (Trazodone Hcl 50 Mg Tablet) 50 mg PO BEDTIME LOLA Last Admin: 03/01/22 20:19 Dose: Not Given Documented by: Allergies Allergies Allergy/AdvReac Type Severity Reaction Status Date / Time No Known Allergies Allergy Verified 01/18/22 17:46 Assessment & Plan Assessment & Plan (1) Schizoaffective disorder, depressive type: Status: Acute Code(s): F25.1 - Schizoaffective disorder, depressive type Plan HPI: Tomas is a 61 y.o. Male who carries a dx of schizoaffective disorder, depressive type, who presents for his 4th psychiatric hospitalization. He [place] [facility] [place] via ambulance called by [place] Police due to pt writing a note to police stating that he is in a high level [employer] project. Once at the ED, Tomas complained of headaches, memory loss, hearing loss, and word retrieval issues, which he attributes to high level radio frequency satellites. No substance or alcohol use concerns. Formulation: Meets criteria for diagnosis of schizoaffective disorder (schizophrenia plus hx of depression). History shows that his symptoms have been prevalent for About past 12 years, which is an unusually late onset. No other contributory etiologies apparent including unremarkable brain MRI. Patient's symptoms have made him unable to function on his own and in need of inpatient treatment. Currently patient has no insight. Patient's symptoms continue to render him unable to function on his own at this time DX: Schizoaffective disorder depressed type. (Paranoid delusions +AH + history of intermittent depressive episodes) Current PLAN: Clozapine 25mg daily INCREASED to Clozapine 375mg qhs ANC on 02/27 4.7 Check ANC weekly QTc on 02/06 WNL -DISContinue Zyprexa 20mg qhs (zyprexa started on 01/30); no affect, even at max doses; given that the longer psychotic symptoms remained the hardly become to treat, will discontinue Zyprexa and start clozapine Q15 min safety checks, CV Monitor response to medications. Monitor for safety in the milieu. Discharge on stabilization. for day to day details...see below: HOSPITAL COURSE: 01/19/2022 Patient accepting Risperdal. Would do well with long-acting injectable. Unclear why patient has not had significant treatment over the past number of years. The collateral information from family he is asking we contact his stepfather. His 2 brothers states his no contact with. Patient does not have any children unclear how the patient has been living states he has over million dollars unclear if this is grandiose and delusional 01/20/2022 We would strongly recommend long-acting injectable. Contact family for additional information support unclear what other resources may be available 01/21/22: Increase risperdal to 2 mg BID, as pt has not had response to medi cation (risperdal started at [facility] [place] and appears psychotic, unable to care for self. Obtain [facility] discharge paperwork. 01/23 Remains delusional and without any insight. However patient said that headache pain is less today which will hopefully Indicates that Risperdal is having some positive affect. Will leave the current dose for now to see If further improvements can be made 01/28 Patient remains psychotic with auditory hallucinations and paranoid delusions -Risperdal 3 mg b.i.d. has not yet seem to reduce symptoms; will consider switching to another antipsychotic 01/30 DC Risperdal START Zyprexa patient does not seem to have symptom reduction on Risperdal 6 mg total daily dose; he also reports he did not notice perphenazine making any difference and service writer advisor's review of [facility] notes indicate patient had a very similar presentation as he does currently on Risperdal. Patient agrees to switching antipsychotic medication. 01/31 remains delusional and with AH. Tolerating Zyprexa -titrate Zyprexa further. Given patient's age it is preferable to see if 10 mg can eventually reduce symptoms; however the longer patient remains psychotic the harder his psychosis will be to treat. Current literature shows significant evidence that once a medication is at therapeutic dose there is usually a red uction in symptoms when initiating an antipsychotic, within the first couple days. As there has yet to be any effect, it is thus very likely that he will eventually be titrated to at least 15 mg and since he denies any side effects at all will continue to titrate 02/03 remains psychotic with auditory hallucinations and delusions. Agrees with continued titration of Zyprexa 02/04 no change; continue tx; Influenza: resolved 02/06 Remains delusional with auditory hallucinations; patient gives history that He had paranoid delusions for the past 12 or 13 years. Agrees to change medications tomorrow if service writer advisor thinks best 02/07 delusions/auditory hallucinations remain patient agrees to switching medic ations to clozapine, understands risk of agranulocytosis and agrees to weekly ANC blood checks. 02/08 No change in current treatment plan, denies SE on clozapine 02/11 perhaps some decrease in volume of AH, though they remain. Continue titration 02/13 Auditory hallucinations remain however they continued to decrease in volume to the point where sometimes patient cannot fully make them out which he says has never happened before and is encouraged by. Will continue at same dose for now. But will likely need to titrate further 02/18 Remains with auditory hallucinations but they continue to decrease and are now in discernible; remains without insight but amenable to increasing clozapine 02/21 no further change in symptoms; continue clozapine titration says he still needs to be able to lie in his bed /7 due to headaches and dizziness from the electronics in his head; not showered and hardly leaves room for same reasons (delusional thoughts/electronics interfer); still AH, lowered but persistent. Patient's symptoms continue to render him unable to function on his own at this time 02/27 no change 03/01 some further improvement and patient says he is feeling better evidenced by him walking the halls, with less headache and feeling less dizzy. He surmizes that some of the electronics in his head are now removed which is relieving symptoms. He remains without insight that this is due to a psychiatric illness but is pleased with feeling overall better. Denies any medication side effect and agrees to further titration which service writer advisor believes is warranted given his continued symptoms and complete lack of insight 03/02/22: Coverage: Specific field marketing lead-first time meeting with pt. No medication changes today. MED TRIals Perphenazine: not effective (tried at [facility]) Risperdal: not effective (tried at [facility]) Zyprexa: no effect brain MRI with and without contrast (done at [facility] on 01/11/22): Impression: Normal MRI of the IACs Without and with contrast> Recent Psych hx: Advanced Practice Nurse reviewed discharge summary from [facility] were patient was admitted on 12/12/2021 Same presentation, reporting he was part of a government to mind control program with associated AH and headaches. At 1st patient would not verbally talk to staff there are and only communicating via written communication. Patient treated with perphenazine titrated to 20 mg b.i.d. (may be error and meant daily as this is a very high dose). Reportedly patient some mild decrease in paranoid and delusional content and started verbally talking with treatment t eam, became less isolative and willing to walk the halls on the unit. -psychotic symptoms present for about 8 years That admission was the 3rd psychiatric hospitalization I spent minutes with the patient and/or on the patient floor today, greater than?50% of which was spent counseling/coordinating care. Patient educated on: therapeutic strategies Informed Consent: further education needed Reason for contiued inpatient stay Substantial Risk for: inability to function and rapid decompensation
[2022-03-02] MEDS: cloZAPine 25 MG TABLET 75 MG PO (20:47)
[2022-03-02] MEDS: traZODone HCL 50 MG TABLET PO (20:47)
[2022-03-02] MEDS: cloZAPine 100 MG TABLET 300 MG PO (20:48)
[2022-03-03 06:00] VITALS: BP 141/83; PULSE 88; RESP 16; TEMP 36.4; O2SAT 96
[2022-03-03] MEDS: cloZAPine 25 MG TABLET PO (10:18)
--- NOTE | 2022-03-03 10:50 | HO.PSYCHPN ---
Subjective Subjective Date of Service: 03/03/22 Reason For Visit: Paranoia Interim History: Reports overall symptom improvement since admission with Clozapine titration. Precise in describing head pain 3, vertigo/dizziness 2-7, memory loss- some and distortion of the mind at 7. Medication Compliance: Yes Side effects from medications: No Attending Groups: No Review of Systems Acute medical concerns: No Mental Status Exam Mental Status Exam Patient Appearance: Appropriate Patient Orientation: Person and Place Level of Consciousness: Alert Patient Behavior: Appropriate, Talkative and Good Eye Contact Mood Description: Constricted Affect Description: Constricted Patient Cognition Impaired: No Ability to Follow Directions: Good Speech Pattern: Spontaneous Speech Memory Description: Episodic Impaired Hallucinations: None (denies) Delusions: Paranoid Ideation ( mind distortion ) Perceptual Disturbances: Derealization Thought Process: Illogical and Distracted Thought Content: positive for Preoccupation Judgement: Fair Diagnostics Vital Signs (24Hr): Vital Signs - 24 hr 03/02/22 16:00 03/03/22 06:00 Temperature 98.8 F 97.6 F Pulse Rate 98 88 Respiratory Rate 16 Blood Pressure 121/77 141/83 H Pulse Oximetry 96 96 BMI result Body Mass Index 19.3 Labs Results: 02/06/22 08:27 01/19/22 07:03 Medications Medications Current Medications Acetaminophen (Acetaminophen 325 Mg Tablet) 650 mg PO Q6H PRN PRN Reason: Headache/Pain Mild Scale (1-3) Last Admin: 02/01/22 19:56 Dose: 650 mg Documented by: Al Hydroxide/Mg Hydroxide (Magnesium Hydrox/Alum Hydrox 30 Ml Oral.Susp) 30 ml PO Q6H PRN PRN Reason: Heartburn/Nausea Clozapine (Clozapine 25 Mg Tablet) 25 mg PO DAILY [facility] Last Admin: 03/03/22 10:18 Dose: 25 mg Documented by: Clozapine (Clozapine 100 Mg Tablet) 300 mg PO BEDTIME LOLA Last Admin: 03/02/22 20:48 Dose: 300 mg Documented by: Clozapine (Clozapine 25 Mg Tablet) 75 mg PO BEDTIME LOLA Last Admin: 03/02/22 20:47 Dose: 75 mg Documented by: Guaifenesin (Guaifenesin 100 Mg/5 Ml Liquid) 5 ml PO Q4H PRN PRN Reason: Cough Last Admin: 02/01/22 19:56 Dose: 5 ml Documented by: Hydroxyzine HCl (Hydroxyzine Hcl 25 Mg Tablet) 25 mg PO BEDTIME PRN PRN Reason: Anxiety Ibuprofen (Ibuprofen 600 Mg Tablet) 600 mg PO Q8H PRN PRN Reason: Pain, Mild (Pain Scale 1-3) Magnesium Hydroxide (Milk Of Magnesia 30 Ml Oral.Susp) 30 ml PO DAILY PRN PRN Reason: Constipation Trazodone HCl (Trazodone Hcl 50 Mg Tablet) 50 mg PO BEDTIME LOLA Last Admin: 03/02/22 20:47 Dose: 50 mg Documented by: Allergies Allergies Allergy/AdvReac Type Severity Reaction Status Date / Time No Known Allergies Allergy Verified 01/18/22 17:46 Assessment & Plan Assessment & Plan (1) Schizoaffective disorder, depressive type: Status: Acute Code(s): F25.1 - Schizoaffective disorder, depressive type Plan HPI: Tomas is a 61 y.o. Male who carries a dx of schizoaffective disorder, depressive type, who presents for his 4th psychiatric hospitalization. He presented to the [facility] [place] ED on 01/17/22 via ambulance called by [place] Police due to pt writing a note to police stating that he is in a high level [employer] project. Once at the ED, Tomas complained of headaches, memory loss, hearing loss, and word retrieval issues, which he attributes to high level radio frequency satellites. No substance or alcohol use concerns. Formulation: Meets criteria for diagnosis of schizoaffective disorder (schizophrenia plus hx of depression). History shows that his symptoms have been prevalent for About past 12 years, which is an unusually late onset. No other contributory etiologies apparent including unremarkable brain MRI. Patient's symptoms have made him unable to function on his own and in need of inpatient treatment. Currently patient has no insight. Patient's symptoms continue to render him unable to function on his own at this time DX: Schizoaffective disorder depressed type. (Paranoid delusions +AH + history of intermittent depressive episodes) Current PLAN: Clozapine 25mg daily INCREASED to Clozapine 375mg qhs ANC on 02/27 4.7 Check ANC weekly QTc on 02/06 WNL -DISContinue Zyprexa 20mg qhs (zyprexa started on 01/30); no affect, even at max doses; given that the longer psychotic symptoms remained the hardly become to treat, will discontinue Zyprexa and start clozapine Q15 min safety checks, CV Monitor response to medications. Monitor for safety in the milieu. Discharge on stabilization. for day to day details...see below: HOSPITAL COURSE: 01/19/2022 Patient accepting Risperdal. Would do well with long-acting injectable. Unclear why patient has not had significant treatment over the past number of years. The collateral information from family he is asking we contact his stepfather. His 2 brothers states his no contact with. Patient does not have any children unclear how the patient has been living states he has over million dollars unclear if this is grandiose and delusional 01/20/2022 We would strongly recommend long-acting injectable. Contact family for additional information support unclear what other resources may be available 01/21/22: Increase risperdal to 2 mg BID, as pt has not had response to medication (risperdal started at [facility]) and appears psychotic, unable to care for self. Obtain [facility] discharge paperwork. 01/23 Remains delusional and without any insight. However patient said that headache pain is less today which will hopefully Indicates that Risperdal is having some positive affect. Will leave the current dose for now to see If further improvements can be made 01/28 Patient remains psychotic with auditory hallucinations and paranoid delusions -Risperdal 3 mg b.i.d. has not yet seem to reduce symptoms; will consider switching to another antipsychotic 01/30 DC Risperdal START Zyprexa patient does not seem to have symptom reduction on Risperdal 6 mg total daily dose; he also reports he did not notice perphenazine making any difference and lyric writer's review of [facility] notes indicate patient had a very similar presentation as he does currently on Risperdal. Patient agrees to switching antipsychotic medication. 01/31 remains delusional and with AH. Tolerating Zyprexa -titrate Zyprexa further. Given patient's age it is preferable to see if 10 mg can eventually reduce symptoms; however the longer patient remains psychotic the harder his psychosis will be to treat. Current literature shows significant evidence that once a medication is at therapeutic dose there is usually a reduction in symptoms when initiating an antipsychotic, within the first couple days. As there has yet to be any effect, it is thus very likely that he will eventually be titrated to at least 15 mg and since he denies any side effects at all will continue to titrate 02/03 remains psychotic with auditory hallucinations and delusions. Agrees with continued titration of Zyprexa 02/04 no change; continue tx; Influenza: resolved 02/06 Remains delusional with auditory hallucinations; patient gives history that He had paranoid delusions for the past 12 or 13 years. Agrees to change medications tomorrow if lyric writer thinks best 02/07 delusions/auditory hallucinations remain patient agrees to switching medications to clozapine, understands risk of agranulocytosis and agrees to weekly ANC blood checks. 02/08 No change in current treatment plan, denies SE on clozapine 02/11 perhaps some decrease in volume of AH, though they remain. Continue titration 02/13 Auditory hallucinations remain however they continued to decrease in volume to the point where sometimes patient cannot fully make them out which he says has never happened before and is encouraged by. Will continue at same dose for now. But will likely need to titrate further 02/18 Remains with auditory hallucinations but they continue to decrease and are now in discernible; remains without insight but amenable to increasing clozapine 02/21 no further change in symptoms; continue clozapine titration says he still needs to be able to lie in his bed 21/04 due to headaches and dizziness from the electronics in his head; not showered and hardly leaves room for same reasons (delusional thoughts/electronics interfer); still AH, lowered but persistent. Patient's symptoms continue to render him unable to function on his own at this time 02/27 no change 03/01 some further improvement and patient says he is feeling better evidenced by him walking the halls, with less headache and feeling less dizzy. He surmizes that some of the electronics in his head are now removed which is relieving symptoms. He remains without insight that this is due to a psychiatric illness but is pleased with feeling overall better. Denies any medication side effect and agrees to further titration which lyric writer believes is warranted given his continued symptoms and complete lack of insight. 03/03/22 coverage: no changes made today. 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 At 1st patient would not verbally talk to staff there are and only communicating via written communication. Patient treated with perphenazine titrated to 20 mg b.i.d. (may be error and meant daily as this is a very high dose). Reportedly patient some mild decrease in paranoid and delusional content and started verbally talking with treatment team, became less isolative and willing to walk the halls on the unit. -psychotic symptoms present for about 8 years That admission was the 3rd psychiatric hospitalization I spent minutes with the patient and/or on the patient floor today, greater than?50% of which was spent counseling/coordinating care. Patient educated on: therapeutic strategies Informed Consent: further education needed Reason for contiued inpatient stay Substantial Risk for: inability to function and rapid decompensation
[2022-03-03 18:00] VITALS: BP 111/69; PULSE 87; TEMP 36.5; O2SAT 95
[2022-03-03] MEDS: cloZAPine 100 MG TABLET 300 MG PO (21:21)
[2022-03-03] MEDS: cloZAPine 25 MG TABLET 75 MG PO (21:22)
[2022-03-03] MEDS: traZODone HCL 50 MG TABLET PO (21:23)
[2022-03-04 06:00] VITALS: BP 118/76; PULSE 93; RESP 16; TEMP 36.7; O2SAT 96
[2022-03-04] MEDS: cloZAPine 25 MG TABLET PO (08:43)
[2022-03-04 11:58] LABS: MANUAL DIFF FLAG NO
[2022-03-04 11:59] LABS: Basophils Percent Auto 0.4 % (0-2); Eosinophils Absolute Auto 0.2 X10*3/uL (0.0-0.4); Eosinophils Percent Auto 2.5 % (0-4); Hemoglobin 11.6 g/dl (14.0-18.0); Imm Gran Abs Auto 0.04 X10*3/uL (0.00-0.03); Imm Gran Pct Auto 0.5 % (0.0-0.4); Lymphocytes Absolute Auto 1.4 X10*3/uL (1.2-4.9); Lymphocytes Percent Auto 18.4 % (20-40); Mean Corpuscular HGB Conc 31.4 g/dl (31.0-36.0); Mean Corpuscular Hemoglobin 30.8 pg (27.0-33.0); Mean Corpuscular Volume 98.1 fL (80.0-98.0); Mean Platelet Volume 9.6 fL (9.4-12.4); Monocytes Absolute Auto 0.6 X10*3/uL (0.1-1.2); Monocytes Percent Auto 7.9 % (2-11); Neutrophils Absolute Auto 5.4 x10*3/uL (2.0-8.3); Neutrophils Percent Auto 70.3 % (45-73); Platelet Count 229 X10*3/uL (160-400); Red Blood Count 3.77 X10*6/uL (4.60-5.80); White Blood Count 7.7 X10*3/uL (4.8-10.8)
--- NOTE | 2022-03-04 13:57 | P.PNPSI_ITS ---
Subjective Subjective Date of Service: 03/04/22 Reason For Visit: Paranoia Interim History: Patient says that he is doing okay but that news of going to respite caught off guard. He does remember discussing last week but did not think would come so soon. He said that he is ready to go though he would prefer to remain on the unit. Auditory hallucinations remain and project continues. He continues to report intermittent dizziness and headache and the need to lie down flat on his back. Patient and repairer typewriter discussed that medications could be continued and that clozapine should be titrated until the auditory hallucinations cease. Handyman asked about patient's mood and he said he feels fine and denies any anxiety or depression. Mental Status Exam Mental Status Exam Narrative: Pt is alert and oriented; behavior is cooperative, friendly and calm; dressed in hospital cloths with unkempt hair and improved hygiene;? mood is described as ok ? affect congruent, not blunted and more expressive; eye contact appropriate; Speech is normal rate, volume and prosody and not pressured; no psychomotor agitation/retardation present; thought process is goal directed and linear; Thought content is on delusional interactions with Special attack project/DOD; otherwise pertinent to relevant topics; denies any SI/HI.? Auditory hallucinations present though significantly lower.? Patients insight and judgment are impaired Diagnostics Vital Signs (24Hr): Vital Signs - 24 hr 03/03/22 18:00 03/04/22 06:00 Temperature 97.7 F 98.0 F Pulse Rate 87 93 Respiratory Rate 16 Blood Pressure 111/69 118/76 Pulse Oximetry 95 96 BMI result Body Mass Index 19.3 Labs Results: 03/04/22 11:54 01/19/22 07:03 Labs: Laboratory Results - last 48 hr 03/04/22 11:54 WBC 7.7 RBC 3.77 L Hgb 11.6 L Hct 37.0 L MCV 98.1 H MCH 30.8 MCHC 31.4 RDW 14.0 Plt Count 229 D MPV 9.6 Immature Gran % (Auto) 0.5 H Neut % (Auto) 70.3 Lymph % (Auto) 18.4 L Brooks % (Auto) 7.9 Eos % (Auto) 2.5 Baso % (Auto) 0.4 Lymph # (Auto) 1.4 Brooks # (Auto) 0.6 Eos # (Auto) 0.2 Baso # (Auto) 0.0 Abs Immat Gran (auto) 0.04 H Absolute Neuts (auto) 5.4 Absolute Nucleated RBC 0.000 Nucleated RBC % (auto) 0.0 Medications Medications Current Medications Acetaminophen (Acetaminophen 325 Mg Tablet) 650 mg PO Q6H PRN PRN Reason: Headache/Pain Mild Scale (1-3) Last Admin: 02/01/22 19:56 Dose: 650 mg Documented by: Al Hydroxide/Mg Hydroxide (Magnesium Hydrox/Alum Hydrox 30 Ml Oral.Susp) 30 ml PO Q6H PRN PRN Reason: Heartburn/Nausea Clozapine (Clozapine 25 Mg Tablet) 25 mg PO DAILY [facility] Last Admin: 03/04/22 08:43 Dose: 25 mg Documented by: Clozapine (Clozapine 100 Mg Tablet) 400 mg PO BEDTIME [facility] Guaifenesin (Guaifenesin 100 Mg/5 Ml Liquid) 5 ml PO Q4H PRN PRN Reason: Cough Last Admin: 02/01/22 19:56 Dose: 5 ml Documented by: Hydroxyzine HCl (Hydroxyzine Hcl 25 Mg Tablet) 25 mg PO BEDTIME PRN PRN Reason: Anxiety Ibuprofen (Ibuprofen 600 Mg Tablet) 600 mg PO Q8H PRN PRN Reason: Pain, Mild (Pain Scale 1-3) Magnesium Hydroxide (Milk Of Magnesia 30 Ml Oral.Susp) 30 ml PO DAILY PRN PRN Reason: Constipation Trazodone HCl (Trazodone Hcl 50 Mg Tablet) 50 mg PO BEDTIME [facility] Last Admin: 03/03/22 21:23 Dose: 50 mg Documented by: Allergies Allergies Allergy/AdvReac Type Severity Reaction Status Date / Time No Known Allergies Allergy Verified 01/18/22 17:46 Assessment & Plan Assessment & Plan (1) Schizoaffective disorder, depressive type: Status: Acute Code(s): F25.1 - Schizoaffective disorder, depressive type Plan HPI: Tomas is a 61 y.o. Male who carries a dx of schizoaffective disorder, depressive type, who presents for his 4th psychiatric hospitalization. [place] [facility] [place] via ambulance called by [place] [employer] due to pt writing a note to police stating that he is in a high level [employer] project. Once at the ED, Tomas complained of headaches, memory loss, hearing loss, and word retrieval issues, which he attributes to high level radio frequency satellites. No substance or alcohol use concerns. Formulation: Meets criteria for diagnosis of schizoaffective disorder (schizophrenia plus hx of depression). History shows that his symptoms have been prevalent for About past 12 years, which is an unusually late onset. No other contributory etiologies apparent including unremarkable brain MRI. Patient's symptoms have made him unable to function on his own and in need of inpatient treatment. Currently patient has no insight. Patient's symptoms continue to render him unable to function on his own at this time. Patient agrees to go to respite during which time his medication can be further titrated. For though he lacks insight into the cause of auditory hallucinations/paranoid delusion, he does believe that medications might be able to decrease his exposure to this project and eliminate voices by interfering with the electronics implanted in his head. Patient welcomes this and wants to continue with clozapine and its titration DX: Schizoaffective disorder depressed type. (Paranoid delusions +AH + history of intermittent depressive episodes) Current PLAN: Clozapine 25mg daily INCREASED to Clozapine 400mg qhs ANC on 03/04 5.4 Check ANC weekly H&H stable QTc on 02/06 WNL Q15 min safety checks, C Monitor response to medications. Monitor for safety in the milieu. Discharge on stabilization. for day to day details...see below: HOSPITAL COURSE: 01/19/2022 Patient accepting Risperdal. Would do well with long-acting injectable. Unclear why patient has not had significant treatment over the past number of years. The collateral information from family he is asking we contact his stepfather. His 2 brothers states his no contact with. Patient does not have any children unclear how the patient has been living states he has over million dollars unclear if this is grandiose and delusional 01/20/2022 We would strongly recommend long-acting injectable. Contact family fo r additional information support unclear what other resources may be available 01/21/22: Increase risperdal to 2 mg BID, as pt has not had response to medication (risperdal started at [facility] [place] and appears psychotic, unable to care for self. Obtain [facility] [place] discharge paperwork. 01/23 Remains delusional and without any insight. However patient said that headache pain is less today which will hopefully Indicates that Risperdal is having some positive affect. Will leave the current dose for now to see If fu rther improvements can be made 01/28 Patient remains psychotic with auditory hallucinations and paranoid delusions -Risperdal 3 mg b.i.d. has not yet seem to reduce symptoms; will consider switching to another antipsychotic 01/30 DC Risperdal START Zyprexa patient does not seem to have symptom reduction on Risperdal 6 mg total daily dose; he also reports he did not notice perphenazine making any difference and repairer typewriter's review of [facility] notes indicate patient had a very similar presentation as he does currently on Risperdal. Patient agrees to switching antipsychotic medication. 01/31 remains delusional and with AH. Tolerating Zyprexa -titrate Zyprexa further. Given patient's age it is preferable to see if 10 mg can eventually reduce symptoms; however the longer patient remains psychotic the harder his psychosis will be to treat. Current literature shows significant evidence that once a medication is at therapeutic dose there is usually a reduction in symptoms when initiating an antipsychotic, within the first couple days. As there has yet to be any effect, it is thus very likely that he will eventually be titrated to at least 15 mg and since he denies any side effects at all will continue to titrate 02/03 remains psychotic with auditory hallucinations and delusions. Agrees with jeffry ontinued titration of Zyprexa 02/04 no change; continue tx; Influenza: resolved 02/06 Remains delusional with auditory hallucinations; patient gives history that He had paranoid delusions for the past 12 or 13 years. Agrees to change medications tomorrow if repairer typewriter thinks best 02/07 delusions/auditory hallucinations remain patient agrees to switching medications to clozapine, understands risk of agranulocytosis and agrees to weekly ANC blood checks. 02/08 No change in current treatment plan, denies SE on clozapine 02/11 perhaps some decrease in volume of AH, though they remain. Continue titration 02/13 Auditory hallucinations remain however they continued to decrease in volume to the point where sometimes patient cannot fully make them out which he says has never happened before and is encouraged by. Will continue at same dose for now. But will likely need to titrate further 02/18 Remains with auditory hallucinations but they continue to decrease and are now in discernible; remains without insight but amenable to increasing clozapine 02/21 no further change in symptoms; continue clozapine titration 5/32 says he still needs to be able to lie in his bed 21/04 due to headaches and dizziness from the electronics in his head; not showered and hardly leaves room for same reasons (delusional thoughts/electronics interfer); still AH, lowered but persistent. Patient's symptoms continue to render him unable to function on his own at this time 02/27 no change 03/01 some further improvement and patient says he is feeling better evidenced by him walking the halls, with less headache and feeling less dizzy. He surmizes that some of the electronics in his head are now removed which is relieving symptoms. He remains without insight that this is due to a psychiatric illness but is pleased with feeling overall better. Denies any medication side effect and agrees to further titration which repairer typewriter believes is warranted given his continued symptoms and complete lack of insight. 03/04 patient remains with paranoid delusions and auditory hallucinations. He is pleased that the voices are diminished but he continues to feel and be impaired. Patient continues to lack all insight and his symptoms continue to render him unable to function on his own at this time. At this time patient continues to need structured living situation. Patient agrees to go to [facility]pite during which time his medication can be further titrated. For though he lacks insight into the cause of auditory hallucinations/paranoid delusion, he does believe that medications might be able to decrease his exposure to this project and eliminate voices by interfering with the electronics implanted in his head. Patient welcomes this and wants to continue with clozapine and its titration. Patient agrees to this plan. Though he is unable to function on his own in the community, he is not in imminent risk of harm to himself or others and his transition to respite is appropriate. 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 At 1st patient would not verbally talk to staff there are and only communicating via written communication. Patient treated with perphenazine titrated to 20 mg b.i.d. (may be error and meant daily as this is a very high dose). Reportedly patient some mild decrease in paranoid and delusional content and started verbally talking with treatment team, became less isolative and willing to walk the halls on the unit. -psychotic symptoms present for about 8 years That admission was the 3rd psychiatric hospitalization I spent minutes with the patient and/or on the patient floor today, greater than?50% of which was spent counseling/coordinating care. Patient educated on: medication risk/benefits Informed Consent: understands Reason for contiued inpatient stay Substantial Risk for: inability to function
[2022-03-04 15:35] LABS: COVID-19 Test Negative (Negative); IDNOW Serial# 9DB6401D
--- NOTE | 2022-03-04 15:44 | P.DS_ITS ---
DS: Providers Provider Date of Service: 03/05/22 Date of admission: 01/18/22 16:30 Date of discharge: 03/05/22 Primary care physician: Unknown Physician Attending physician on admission: Eva Fournier Consults: 01/18/22 19:27 Consult to Hospitalist Routine Consulting Provider: Hospitalist Reason For Exam: new admit from [facility] [place] Attending physician on discharge: Praveen Lieberman DS: Diagnosis Discharge Diagnosis (1) Schizoaffective disorder, depressive type: Status: Acute DS: Medications Discharge Medications Home Medications: Previous Rx's Medication Instructions Recorded acetaminophen 325 mg tablet 650 mg PO Q6H PRN #0 tab 03/04/22 clozapine 200 mg tablet 400 mg PO BEDTIME 30 Days #60 tab 03/04/22 clozapine 25 mg tablet 25 mg PO DAILY 30 Days #30 tab 03/04/22 ibuprofen 600 mg tablet 600 mg PO Q8H PRN #0 tab 03/04/22 trazodone 50 mg tablet 50 mg PO BEDTIME PRN 30 Days #30 03/04/22 tab Mental Status Exam Mental Status Exam Narrative: Pt is alert and oriented; behavior is cooperative, friendly and calm; dressed in casual cloths with unkempt hair and improved hygiene;? mood is described as ok ? affect congruent, not blunted and more expressive, a little anxious; eye contact appropriate; Speech is normal rate, volume and prosody and not pressured; no psychomotor agitation/retardation present; thought process is goal directed and linear; Thought content is on transfering to Respite and on chronic delusional beliefs regarding Special attack project/DOD; otherwise pertinent to relevant topics; denies any SI/HI.? Auditory hallucinations present though significantly lower in volume since Clozapine.? Patients insight and judgment are impaired Data Data Completed and Pending Completed studies during hospitalization [Text1]: 02/27/22 03/04/22 03/04/22 08:32 11:54 15:01 WBC 7.7 RBC 3.77 L Hgb 11.6 L Hct 37.0 L MCV 98.1 H MCH 30.8 MCHC 31.4 RDW 14.0 Plt Count 229 D MPV 9.6 Immature Gran % (Auto) 0.5 H Neut % (Auto) 70.3 Lymph % (Auto) 18.4 L [place] % (Auto) 7.9 Eos % (Auto) 2.5 Baso % (Auto) 0.4 Lymph # (Auto) 1.4 [place] # (Auto) 0.6 Eos # (Auto) 0.2 Baso # (Auto) 0.0 Abs Immat Gran (auto) 0.04 H Absolute Neuts (auto) 4.7 5.4 Absolute Nucleated RBC 0.000 Nucleated RBC % (auto) 0.0 COVID-19 ([facility]ER) Negative COVID-19 Clin Com See Note DS: Summary Hospital Course Hospital Course: HPI: Tomas is a 61 y.o. Male who carries a dx of schizoaffective disorder, depressive type, who presents for his 4th psychiatric hospitalization. He presented to the [facility] ED on 01/17/22 via ambulance called by [place] [employer] due to pt writing a note to police stating that he is in a high level [employer] project. Once at the ED, Tomas complained of headaches, memory loss, hearing loss, and word retrieval issues, which he attributes to high level radio frequency satellites. No substance or alcohol use concerns. Formulation: Meets criteria for diagnosis of schizoaffective disorder (schizophrenia plus hx of depression). History shows that his symptoms have been prevalent for About past 12 years, which is an unusually late onset. No other contributory etiologies apparent including unremarkable brain MRI. Patient's symptoms have made him unable to function on his own and in need of inpatient treatment.? Currently patient has no insight.? Patient's symptoms continue to render him unable to function on his own at this time.? Patient agrees to go to respite during which time his medication can be further titrated. For though he lacks insight into the cause of auditory hallucinations/paranoid delusion, he does believe that medications might be able to decrease his exposure to this projec t and eliminate voices by interfering with the electronics implanted in his head.? Patient welcomes this and wants to continue with clozapine and its titration DX: Schizoaffective disorder depressed type.? (Paranoid delusions +AH + history of intermittent depressive episodes) Discharged on: Clozapine 25mg daily Clozapine 400mg qhs ANC on 03/04:? 5.4 for day to day details...see below: HOSPITAL COURSE: On admission patient was calm, cooperative but with blunted affect. He had paranoid delusion that he was part of work over project and had auditory hallucinations, communicating with members of this product. Over the course of his admission he primarily stated in his bedroom, in bed though he would sometimes walk the hallways and would get exercise in his room. He had failed 3 monotherapy antipsychotic trials including Perphenazine (tried at [facility] and not effective), Risperdal and Zyprexa, neither of them effective. Patient was then started on clozapine. As clozapine was titrated, patient did experience the benefit of having his auditory hallucinations diminished. He said that the voices became nearly inaudible, however they remained and at times were fully audible. His affect brightened, was no longer blunted, and became more naturally expressive. However, he continued to complain that the electronics in his head would cause dizziness and headaches and that he needed to lie down flat on his mattress. Because of this patient remained isolative most of his admission though intermittently he would shower with prompting. Patient never developed any insight into the cause of his auditory hallucinations/delusions; thankfully however, he believed that medications might be able to decrease his exposure to this project and eliminate voices by interfering with the electronics implanted in his head and welcomed titration of clozapine. He denied any medication side effects. Due to patient's delusions, he was unable to care for himself in the community so application was made for [facility] services; patient was offered a respite bed where his clozapine could be further titrated and patient agreed with this plan. Throughout his stay on the unit, patient denied any SI or HI. He also denied depression or anxiety. Patient was not in imminent risk of harm to himself or others however, despite that AH decreased in volume, both AH and delusional thinking remained and function continued to be impaired. He remained without insight and at this time patient continued to need a structured living situation, again, to which pt was in fully agreed. brain MRI with and without contrast?(done at [facility] on 01/11/22): Impression: Normal MRI of the IACs Without and with contrast> MED TRIal hx: Perphenazine: not effective (tried at [facility]) Risperdal: not effective (tried at [facility]) Zyprexa: no effect Time spent discussing smoking cessation with patient: 3 to 10 minutes Status at Discharge Functional status at discharge: independent ambulation Overall status at discharge: patient is not back to baseline Time Spent with Patient Time attestation: Total time spent providing and/or coordinating discharge services: Time spent: Greater than 30 minutes Discharge Plan Discharge Patient Disposition: Xfer to Respite Facility Discharge Diagnosis: Schizoaffective disorder, depressed type Referrals: NITZA Dang [facility] [Other] - 03/05/22 10:00 am (You have been referred for a step-down admission to [facility] for continued psychiatric stabilization. You will be in a long-term [facility] bed and can begin engaging with [facility] services) Physician,Unknown J [Primary Care Provider] - 1 Week ([facility]. [address] [place], [place] [id number] Phone # [phone]) Discharge Medications: New acetaminophen 325 mg Tablet 650 mg PO Q6H PRN (Reason: Headache/Pain Mild Scale (1-3)) Qty: 0 0RF clozapine 200 mg tablet 400 mg PO BEDTIME 30 Days Qty: 60 0RF clozapine 25 mg Tablet 25 mg PO DAILY 30 Days Qty: 30 0RF trazodone 50 mg Tablet 50 mg PO BEDTIME PRN (Reason: insomnia) 30 Days Qty: 30 0RF ibuprofen 600 mg Tablet 600 mg PO Q8H PRN (Reason: Pain, Mild (Pain Scale 1-3)) Qty: 0 0RF Discharge Orders: Discharge Order (Routine); Ordered 03/05/22 Ordered By: Praveen Lieberman Diet: regular diet Activity on Discharge: As tolerated Stand Alone Forms: Patient Portal Discharge page, Community Support Care Plan Goals: Maintain mood and safe behaviors, self-care Take medications as prescribed Practice coping skills Continue with outpatient providers and reach out to them as needed Health Concerns: Mood stability and safe behaviors, self-care Plan of Treatment: Follow up with your psychiatric provider and other outpatient providers regarding above concerns Take medications as prescribed Assessment: Risk assessment at time of discharge:? Patient was interviewed prior to discharge and found to be fully oriented and without any SI or HI. Patient is not in imminent risk of harm to self or others and has a safety plan that includes presenting to the closest ER or calling 911 if feeling unsafe.? Patient has been observed closely by nursing and unit staff throughout admission; patient has not engaged in any behaviors that suggest dangerousness to self or others and has demonstrated appropriate behaviors and impulse control Discharge Date/Time: 03/05/22 10:00
[2022-03-04 16:30] VITALS: BP 122/78; PULSE 90; TEMP 36.9; O2SAT 96
[2022-03-04] MEDS: cloZAPine 100 MG TABLET 400 MG PO (20:48)
[2022-03-04] MEDS: traZODone HCL 50 MG TABLET PO (20:49)
[2022-03-05 06:00] VITALS: BP 126/76; PULSE 86; RESP 16; TEMP 36.6; O2SAT 96
[2022-03-05] MEDS: cloZAPine 25 MG TABLET PO (08:21)
== END 2022-03-05 10:00 | DRG 750 ==
PROVIDERS: Psychiatry & Neurology Psychiatry; Admitting Provider Psychiatry & Neurology Psychiatry; Visit Provider Psychiatry & Neurology Psychiatry
DX: F25.1 Schizoaffective disorder, depressive type (principal); D64.9 Anemia, unspecified; J10.1 Influenza due to other identified influenza virus with other respiratory manifestations; Z20.822 Contact with and (suspected) exposure to COVID-19; Z79.899 Other long term (current) drug therapy
CPT/HCPCS: 0241U; 36415; 80053; 80061; 80307; 81003; 82607; 82746; 83036; 84439; 84443; 85025; 85048; 87635; 93005